=== PATIENT | male | born 1965 | race Caucasian/White ===

== ENCOUNTER 2016-07-23 22:38 | Inpatient (IN) | payer BC ==
[~2016-07-23] VITALS: Ht 167.6 cm; Wt 90.0 kg
[~2016-07-23 22:38] MED LIST: BACTDS PO; CEPH-443 PO; CIPR500T4 PO; CYCL-319 PO; DICY20TA59 PO; HYDR-3498 PO; HYDR-3720 PO; IBUP-1542 PO; ONDA4TAB35 PO
[2016-07-23 22:42] VITALS: Ht 167.6 cm; Wt 90.0 kg
[2016-07-23] MEDS ORDERED: SOD CHLORIDE 0.9% 1,000 ML IV STA (22:42)
[2016-07-23] MEDS ORDERED: ONDANSETRON 4 MG INJ IV STA (22:42)
[2016-07-23] MEDS ORDERED: METOCLOPRAMIDE 10 MG INJ IV STA (22:42)
[2016-07-23] MEDS: morphine 4 MG/ML VIAL IV STA ×2 (22:51→22:55)
[2016-07-23] MEDS ORDERED: HYDROmorphONE 1 MG/ML SYG IV STA (22:56)
[2016-07-23 23:09] LABS: ADD UMIC YES; URINE BILIRUBIN (Dip) NEGATIVE (NEGATIVE); URINE BLOOD (Dip) NEGATIVE (NEGATIVE); URINE COLOR LT. YELLOW (YELLOW); URINE GLUCOSE (Dip) NEGATIVE (NEGATIVE); URINE KETONES (Dip) NEGATIVE (NEGATIVE); URINE LEUKOCYTE ESTERASE (Dip) TRACE (NEGATIVE); URINE NITRITE (Dip) NEGATIVE (NEGATIVE); URINE TOTAL PROTEIN (Dip) NEGATIVE (NEGATIVE); URINE UROBILINOGEN (Dip) 0.2 E.U./dL (0.1-1.0)
[2016-07-23 23:09] LABS: BASOPHIL # 0.1 10^3/ul (0.0-0.1); BASOPHILS % 0.5 % (0.0-2.0); CONDITION 1; EOSINOPHILS # 0.3 10^3/ul (0.0-0.5); EOSINOPHILS % 2.9 % (0.0-7.0); HEMATOCRIT 34.2 % (42.0-52.0); HEMOGLOBIN 11.8 g/dl (14.0-18.0); LH ANALYZER COMMENTS 1; LYMPHOCYTES # 3.2 10^3/ul (0.8-2.9); LYMPHOCYTES % 27.4 % (15.0-51.0); MEAN CORPUSCULAR HEMOGLOBIN 35.4 pg (29.0-33.0); MEAN CORPUSCULAR HGB CONC 34.5 g/dl (32.0-37.0); MEAN CORPUSCULAR VOLUME 102.5 fl (82.0-101.0); MONOCYTE # 1.1 10^3/ul (0.3-0.9); MONOCYTES % 9.9 % (0.0-11.0); NEUTROPHIL # 6.9 10^3/ul (1.6-7.5); NEUTROPHILS % 59.3 % (39.0-77.0); PLATELET COUNT 297 10^3/UL (140-440); RED BLOOD COUNT 3.34 10^6/ul (4.70-6.10); UNCORRECTED WBC 11.6 10^3/ul (4.8-10.8); WHITE BLOOD COUNT 11.6 10^3/ul (4.8-10.8)
[2016-07-23 23:14] LABS: ALBUMIN 3.6 g/dl (3.3-4.9); CHLORIDE 103 mmol/L (97-110)
[2016-07-23 23:15] LABS: POTASSIUM 3.6 mmol/L (3.5-5.1); SODIUM 137 mmol/L (135-144)
[2016-07-23 23:17] LABS: ANION GAP 16 (8-16); ASPARTATE AMINO TRANSFERASE 24 IU/L (15-46); BILIRUBIN,INDIRECT 1.2 mg/dl (0-1.1); BILIRUBIN,TOTAL 1.2 mg/dl (0.2-1.3); CARBON DIOXIDE 22 mmol/L (21-31); CREATININE 0.97 mg/dl (0.61-1.24)
[2016-07-23 23:18] LABS: ALANINE AMINOTRANSFERASE 43 IU/L (13-69); ALKALINE PHOSPHATASE 90 IU/L (42-121); BLOOD UREA NITROGEN 17 mg/dl (7-20); CALCIUM 8.9 mg/dl (8.4-10.2); GLUCOSE 104 mg/dl (70-220)
[2016-07-23 23:31] LABS: TROPONIN-I < 0.012 ng/ml (0.00-0.12)
[2016-07-23 23:42] LABS: SQUAMOUS EPITHELIAL CELL,UR RARE; URINE RBCS 0-2 /HPF (0)
--- NOTE | 2016-07-24 00:58 | ERA ---
ER Documentation Chief Complaint Date/Time DATE: 07/24/16 TIME: 00:56 Chief Complaint BIB RA SYCNOPAL EPISODE AFTER VOMITING X1 FROM HOME. ON ORAL CHEMO HPI This is a 51-year-old male was brought in after vomiting 2-3 times. He had a near syncopal episode as he was vomiting so profusely. Patient has a history of stage IV hepatocellular carcinoma. No fevers no chills. Vomiting nonbilious. No blood in vomit. No other current complaints. ROS All systems reviewed and are negative except as per history of present illness. Medications Home Meds Active Scripts Cephalexin* (Keflex*) 500 Mg Capsule, 500 MG PO QID for 7 Days, CAP Prov:MARKO SARAVIA PA-C 05/04/16 Sulfamethoxazole-Trimethoprim* (Bactrim* DS) 800-160 Mg Tab, 1 TAB PO DAILY for 7 Days, TAB Prov:MARKO SARAVIA PA-C 05/04/16 Ciprofloxacin Hcl* (Ciprofloxacin Hcl*) 500 Mg Tablet, 500 MG PO BID for 7 Days , TAB Prov:JORGE NAIR PA-C 04/25/16 Cyclobenzaprine Hcl* (Cyclobenzaprine Hcl*) 10 Mg Tablet, 10 MG PO TID, #15 TAB Prov:PHILIP DUFF NP 11/21/15 Ibuprofen* (Motrin*) 600 Mg Tab, 600 MG PO Q6H Y for PAIN AND OR ELEVATED TEMP, #30 TAB Prov:PHILIP DUFF NP 11/21/15 Hydrocodone Bit-Acetaminophen* ([place]*) 5-325 Mg Tab, 1 TAB PO Q6 Y for PAIN, # 20 TAB Prov:PHILIP DUFF CLERICAL MANAGER 11/21/15 Hydrocodone Bit-Acetaminophen* ([place]*) 7.5-325 Tablet, 1 TAB PO Q4H Y for PAIN , #20 TAB Prov:CONNOR CUMMINS A. DO 08/19/15 Dicyclomine Hcl* (Bentyl*) 20 Mg Tablet, 20 MG PO QID, #30 TAB Prov:DIOGO CUMMINSSTOLOS A. DO 08/19/15 Ondansetron Hcl* (Zofran* ODT) 4 mg -ODT Tab.disper, 4 MG PO Q6 Y for NAUSEA AND /OR VOMITING, #10 TAB Prov:CONNOR CUMMINS DO 08/19/15 Allergies Allergies: Coded Allergies: ibuprofen (Verified Allergy, Mild, CHEMO PT, BLEEDING RISK, 07/23/16) PMhx/Soc History of Surgery: No Anesthesia Reaction: No Hx Neurological Disorder: No Hx Respiratory Disorders: No Hx Cardiac Disorders: No Hx Psychiatric Problems: No Hx Miscellaneous Medical Probl: Yes (liver ca, on chemo pills) Hx Alcohol Use: No Hx Substance Use: No Hx Tobacco Use: No Smoking Status: Never smoker Physical Exam Vitals Vital Signs Date Time Temp Pulse Resp B/P Pulse Ox O2 Delivery O2 Flow Rate FiO2 07/23/16 22:42 37.0 89 22 129/81 100 Physical Exam Const: [] Head: Atraumatic Eyes: Normal Conjunctiva ENT: Normal External Ears, Nose and Mouth. Neck: Full range of motion..~ No meningismus. Resp: Clear to auscultation bilaterally Cardio: Regular rate and rhythm, no murmurs Abd: Soft, non tender, non distended. Normal bowel sounds Skin: No petechiae or rashes Back: No midline or flank tenderness Ext: No cyanosis, or edema Neur: Awake and alert Psych: Normal Mood and Affect Result Diagram: 07/23/16225307/23/162253 Results 24 hrs Laboratory Tests Test 07/23/16 20:49 07/23/16 22:48 07/23/16 22:54 Urine Bilirubin NEGATIVE Urine Clarity CLEAR Urine Color LT. YELLOW Urine Glucose NEGATIVE% Urine Hemoglobin NEGATIVE Urine Ketones NEGATIVE Urine Leukocyte Esterase TRACE Urine Microscopic RBC 0-2/HPF Urine Microscopic WBC 0-2/HPF Urine Nitrite NEGATIVE Urine Specific [place] 1.020 Urine Squamous Epithelial Cells RARE Urine Total Protein NEGATIVE Urine Urobilinogen 0.2 E.U./dL Urine pH 6.0 Lactic Acid Level 1.1mmol/L Alanine Aminotransferase (ALT/SGPT) 43IU/L Albumin 3.6g/dl Albumin/Globulin Ratio 1.50 Alkaline Phosphatase 90IU/L Anion Gap 16 Aspartate Amino Transf (AST/SGOT) 24IU/L Basophils # 0.110^3/ul Basophils % 0.5% Blood Morphology Comment Blood Urea Nitrogen 17mg/dl Calcium Level 8.9mg/dl Carbon Dioxide Level 22mmol/L Chloride Level 103mmol/L Creatinine 0.97mg/dl Direct Bilirubin 0.00mg/dl Eosinophils # 0.310^3/ul Eosinophils % 2.9% Globulin 2.40g/dl Glucose Level 104mg/dl Hematocrit 34.2% Hemoglobin 11.8g/dl Indirect Bilirubin 1.2mg/dl Lipase 793U/L Lymphocytes # 3.210^3/ul Lymphocytes % 27.4% Mean Corpuscular Hemoglobin 35.4pg Mean Corpuscular Hemoglobin Concent 34.5g/dl Mean Corpuscular Volume 102.5fl Mean Platelet Volume 7.0fl Monocytes # 1.110^3/ul Monocytes % 9.9% Neutrophils # 6.910^3/ul Neutrophils % 59.3% Nucleated Red Blood Cells # 0.010^3/ul Nucleated Red Blood Cells % 0.0/100WBC Platelet Count 28596^3/UL Potassium Level 3.6mmol/L Red Blood Count 3.3410^6/ul Red Cell Distribution Width 21.0% Sodium Level 137mmol/L Total Bilirubin 1.2mg/dl Total Protein 6.0g/dl Troponin I < 0.012ng/ml White Blood Count 11.610^3/ul Current Medications Medications (Trade) Dose Ordered Sig/Beny Route PRN Reason Start Time Stop Time Status Last Admin Dose Admin Sodium Chloride (NS) 1,000 ml @ 1,000 mls/hr Q1H STAT IV 07/23/16 22:42 07/23/16 23:41 DC 07/23/16 22:51 Morphine Sulfate (morphine) 4 mg ONCE STAT IV 07/23/16 22:42 07/23/16 22:45 DC Ondansetron HCl (Zofran Inj) 4 mg ONCE STAT IV 07/23/16 22:42 07/23/16 22:45 DC 07/23/16 22:51 Metoclopramide HCl (Reglan) 10 mg ONCE STAT IV 07/23/16 22:42 07/23/16 22:45 DC 07/23/16 22:51 Hydromorphone HCl (Dilaudid) 1 mg ONCE STAT IV 07/23/16 22:56 07/23/16 22:57 DC 07/23/16 22:59 Procedures/MDM EKG: Rate/Rhythm: Normal Sinus Rhythm QRS, ST, T-waves: No changes consistent w/ acute ischemia Impression: No evidence of ischemia or arrhythmia Chest X-ray 1V Interpreted by me: Soft Tissue: No acute abnormalities Bones: No acute abnormalities Mediastinum/Cardiac Silhouette/Lungs: No acute abnormalities Medical decision making: This is a 51 gentleman has acute pancreatitis likely secondary to oral chemotherapy. At this point is clinically stable. His vomiting had subsided. Patient will be admitted to Dr. Bhat who is on-call for Dr. Kam Departure Diagnosis: Primary Impression: Pancreatitis Qualified Code: K85.30 - Drug-induced acute pancreatitis, unspecified complication status Condition: Serious MIKE GASTON Jul 24, 2016 00:58
[2016-07-24 01:00] VITALS: TEMP 98.7
--- NOTE | 2016-07-24 01:05 | RADRPT ---
PROCEDURE: CHEST - 1 VIEW CLINICAL INDICATION: 51-year-old male with chest/abdominal pain. TECHNIQUE: A single frontal AP view of the chest was performed emboli. The images were reviewed o n a PACS workstation. COMPARISON: Chest x-ray March 29, 2015 FINDINGS: The cardiomediastinal silhouette has a normal appearance. There is mild elevation right hemidiaphra gm. There is no evidence for an infiltrate. There is no evidence for congestive heart failure. The re is no evidence for pneumothorax. The osseous structures are intact. IMPRESSION: No evidence for active cardiopulmonary disease. .Omar Camacho MD, MD Date Time Electronically viewed and signed by .Omar Camacho MD, MD on 07/24/2016 01:05 .Jayne/
[2016-07-24 01:30] VITALS: BP 135/79; PULSE 75; RESP 18
[2016-07-24] MEDS ORDERED: ONDANSETRON 4 MG INJ IV PRN (03:00)
[2016-07-24 06:18] LABS: POTASSIUM 3.1 mmol/L (3.5-5.1)
[2016-07-24 06:21] LABS: CREATININE 0.88 mg/dl (0.61-1.24)
[2016-07-24 06:22] LABS: CALCIUM 8.4 mg/dl (8.4-10.2)
[2016-07-24 06:31] LABS: BASOPHILS % 0.6 % (0.0-2.0); EOSINOPHILS # 0.3 10^3/ul (0.0-0.5); EOSINOPHILS % 3.5 % (0.0-7.0); HEMATOCRIT 33.4 % (42.0-52.0); HEMOGLOBIN 11.7 g/dl (14.0-18.0); LYMPHOCYTES # 2.4 10^3/ul (0.8-2.9); LYMPHOCYTES % 27.4 % (15.0-51.0); MEAN CORPUSCULAR HEMOGLOBIN 35.6 pg (29.0-33.0); MEAN CORPUSCULAR HGB CONC 34.9 g/dl (32.0-37.0); MEAN CORPUSCULAR VOLUME 102.1 fl (82.0-101.0); MEAN PLATELET VOLUME 7.2 fl (7.4-10.4); MONOCYTE # 0.7 10^3/ul (0.3-0.9); MONOCYTES % 8.4 % (0.0-11.0); NEUTROPHIL # 5.2 10^3/ul (1.6-7.5); NEUTROPHILS % 60.1 % (39.0-77.0); PLATELET COUNT 269 10^3/UL (140-440); RED BLOOD COUNT 3.28 10^6/ul (4.70-6.10); RED CELL DISTRIBUTION WIDTH 20.5 % (11.5-14.5); UNCORRECTED WBC 8.7 10^3/ul (4.8-10.8); WHITE BLOOD COUNT 8.7 10^3/ul (4.8-10.8)
[2016-07-24 06:38] LABS: CONDITION 1; LH ANALYZER COMMENTS 1
[2016-07-24 07:37] VITALS: BP 133/78; RESP 20
[2016-07-24] MEDS ORDERED: CAPE500T11 PO (11:38)
[2016-07-24] MEDS ORDERED: POTASSIUM CHLORIDE 20 MEQ in DEXTROSE 5% 250 ML IVPB ONE (12:00)
[2016-07-24] MEDS: D5-NS + KCL 20 MEQ 1,000 ML IV SCH (12:52)
--- NOTE | 2016-07-24 13:20 | HP ---
DATE OF ADMISSION: 07/24/2016 CHIEF COMPLAINT: Near syncopal episode after vomiting. HISTORY OF PRESENT ILLNESS: The patient is a 51-year-old [place] gentleman with stage IV, hepatoce llular carcinoma. The patient takes Xeloda at home. The patient developed nonbloody vomiting a cou ple of times and a near syncopal episode while he was profusely vomiting. The patient denies any fe chalino, chills, denies any chest pain, denies any shortness of breath, denies any diarrhea. The patien t stated that he was diagnosed with cancer more than a year ago. The patient follows with Dr. Montenegro, oncologist at [facility]. The patient underwent a 12-lead EKG that showed normal s inus rhythm. The patient was diagnosed with acute pancreatitis. The patient's lipase was elevated to 793. The patient also noted mild leukocytosis. The patient was given Zofran for nausea and morp kaushal for pain, was given 1 liter of IV fluids. The patient's vomiting has subsided and the patient is admitted for further evaluation and management to medical/surgical floor. PAST MEDICAL HISTORY: Per HPI. PAST SURGICAL HISTORY: The patient is status post appendectomy in 1976. FAMILY HISTORY: Noncontributory. SOCIAL HISTORY: The patient denies any tobacco use. The patient uses alcohol occasionally. Luis loaiza denies any illicit drug use. ALLERGIES: PATIENT IS ALLERGIC TO IBUPROFEN. HOME MEDICATIONS: 1. Xeloda 500 mg p.o. b.i.d. 2. Keflex. 3. Cipro. 4. Cyclobenzaprine. 5. Bentyl 6. [place]. 7. Zofran. REVIEW OF SYSTEMS: A 12-point review of systems is negative unless what mentioned in the HPI. PHYSICAL ASSESSMENT GENERAL: Well-developed, well-nourished male in no acute distress. VITAL SIGNS: Temperature is 98.4, pulse is 75, blood pressure is 133/78, respiratory rate 20, oxyge n saturation is 100% on room air. HEENT: Head is atraumatic, normocephalic. Pupils equal, round, reactive to light and accommodation . Oral mucosa is pink and moist. NECK: Supple, no cervical lymphadenopathy, no thyromegaly. CHEST: Lungs clear bilaterally. There is no rhonchi, wheezes, or rales noted. CARDIOVASCULAR: Normal S1, S2. No murmurs, gallops, clicks, rubs noted. ABDOMEN: Round, soft, nondistended, nontender. Bowel sounds present in all 4 quadrants. There is no rebound tenderness. EXTREMITIES: There is no edema, clubbing, cyanosis. Pulses equal bilaterally 2+. SKIN: There is no rash, petechiae noted. NEUROLOGIC: The patient is awake, alert and oriented x4. No focal deficits noted. Motor strength 5/5 in all extremities. LABORATORY DATA: On admission, CBC: White blood cells 11.6, hemoglobin 11.8, hematocrit 34.2, plat elets 297. Chemistry: Sodium is 137, potassium 3.6, chloride 103, carbon dioxide 22, anion gap 16, BUN is 17, creatinine 0.97, glucose 104. AST is 24, ALT is 43, alkaline phosphatase 90, troponin l ess than 0.012. Lipase is 793. IMAGING: Chest x-ray with no evidence for active cardiopulmonary disease. ASSESSMENT AND PLAN: 1. Acute pancreatitis, most likely secondary to chemotherapy. Keep patient n.p.o., start IV fluids . Monitor lipase. Dr. Ferreira will be followed patient in gastroenterology consultation. 2. Near syncope, will obtain cardiac enzymes q.6h. x3 to rule out for acute coronary syndrome, stag e IV hepatocellular carcinoma. We will obtain Oncology consult, Dr. Malhotra. 3. Anemia, most likely secondary to chemotherapy. Will continue sequential compression device for deep venous thrombosis prophylaxis and Protonix for peptic ulcer disease prophylaxis. Monitor lipase and amylase closely. Zofran p.r.n. for nausea. Further recommendations based on clinical course. Plan of care discussed with Dr. Cabrera. Dictated By: ANDREI PIEDRA D[facility]IST [facility] for CORY CABRERA MD SR/NTS Conf#: [id number] DID#: [id number]
--- NOTE | 2016-07-24 14:30 | RADRPT ---
Echocardiogram Report Patient Name: SVETLANA BRUNNER Gender: Male Date: 1965 Study Date: 24-Jul-2016 Smash Fixer: [facility] Location: 623 Ref. Physician: ANDREI PIEDRA Quality: Good Procedures: Transthoracic echocardiogram with complete 2D, M-Mode, and doppler examination. Indications: Syncope. 2D/M Mode Doppler Measurement Value Normal Ranges Measurement Value Normal Ranges LVIDd 2D 4.1 3.5 - 5.6 cm AV Peak Abiel 1.2 m/sec LVIDs 2D 2.0 2.1 - 4.1 cm AV Peak PG 6.0 mmHg LVPWd 2D 1.0 0.6 - 1.1 cm LVOT Peak Abiel 1.1 m/sec IVSd 2D 0.9 0.6 - 1.1 cm LVOT Peak PG 5.1 mmHg AoR Diam 2D 2.7 2.0 - 3.7 cm MV E Peak Abiel 0.8 m/sec EDV 2D 76.1 cm3 MV A Peak Abiel 0.5 m/sec ESV 2D 8.5 cm3 MV E/A 1.6 LA Dimen 2D 3.5 2.3 - 4.0 cm MV Decel Time 182 msec MV Decel [place] 5 MV E/A 1.6 Findings Left Ventricle: Normal left ventricular systolic function. Normal left ventricular cavity size. Normal left ventricular wall thickness. Ejection fraction is visually estimated at 65 %. Right Ventricle: Normal right ventricular size. Normal right ventricular systolic function. Left Atrium: The left atrium is normal in size. Right Atrium: The right atrium is normal in size. Mitral Valve: Mitral valve leaflets appear mildly thickened. Mild mitral valve regurgitation. Aortic Valve: Normal appearance of the aortic valve. No significant aortic stenosis or insufficiency. Tricuspid Valve: Normal appearance and function of the tricuspid valve with trace physiologic regurgitation. Pulmonic Valve: Normal pulmonic valve appearance. Pericardium: Normal pericardium with no significant pericardial effusion. Aorta: Normal aortic root. IVC: Normal size and normal respiratory collapse consistent with normal right atrial pressure. Conclusions 1.Normal left ventricular systolic function. Normal left ventricular cavity size. Normal left ventricular wall thickness. Ejection fraction is visually estimated at 65 %. 2.Normal right ventricular size. Normal right ventricular systolic function. 3.The left atrium is normal in size. 4.The right atrium is normal in size. 5.Mild mitral valve regurgitation. 6.No significant valvular stenosis or regurgitation seen of remaining visualized valves. 7.Normal pericardium with no significant pericardial effusion. 8.Echolucent regions incidentally seen in liver. Further imaging recommended if clinically warranted. Electronically Signed By: Aaron Waller 24-Jul-2016 14:29:34 -0800 Patient Name: SVETLANA BRUNNER Study Date: 24-[id number]
--- NOTE | 2016-07-24 14:33 | CONS ---
DATE OF ADMISSION: 07/24/2016 DATE OF CONSULTATION: 07/24/2016 TYPE OF CONSULTATION: Gastroenterology. Dear Dr. Cabrera: Thank you for asking me to see Mr. Sanchez in GI consultation. HISTORY OF PRESENT ILLNESS: The patient, as you know, is a 51-year-old [place] gentleman has been experiencing vomiting and abdominal pain for the past 24 hours. Vomitus does not contain any blood. He has no diarrhea. No bleeding from the rectum. No history of abdominal pain of significance. He has been known to have hepatocellular carcinoma since 2014. MEDICATIONS: 1. He takes Xeloda 500 mg p.o. b.i.d. He also takes other medications which include: 2. Keflex. 3. Cipro. 4. Cyclobenzaprine. 5. Bentyl. 6. [place]. 7. Zofran. SOCIAL HISTORY: The patient does not smoke or drink. 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 PAST MEDICAL HISTORY: Appendectomy in 1976. REVIEW OF SYSTEM: Essentially as mentioned above, hepatocellular carcinoma. PHYSICAL EXAMINATION GENERAL: The patient is a 51-year-old [place] gentleman who at this time is alert, well built. VITAL SIGNS: Afebrile. CARDIOVASCULAR: Normal heart sounds. RESPIRATORY: Normal breath sounds. ABDOMEN: Showed unremarkable findings. LABORATORY WORKUP: Shows hemoglobin 11.7, WBC 8700. BUN 14, creatinine 0.8. Bilirubin 1.2, AST 24 , ALT 43, alkaline phosphatase 90. Troponin 0.012. He has a CA 19-9 of 1.4, CA 125 of , CEA o f 1.8 in 2014. Serum lipase is elevated to 793. CLINICAL IMPRESSION: A patient presenting with history of vomiting. He has elevated serum amylase. The patient seems to have evidence of pancreatitis quite likely due to gallstone pancreatitis. No history of alcoholism. I doubt if he has got any malignant process in the hepatobiliary pancreatic system, although patient is already known to have hepatoma. PLAN: Recommend MRCP. I will be happy to follow this patient along with you. Once again, doctor, thank you for this consultation. Dictated By: ANN SCHNEIDER/MARIELLA Conf#: [id number] DID#: [id number] CC: ANN JADE MD; CORY CABRERA MD;*End*
[2016-07-24] MEDS: PANTOPRAZOLE 40 MG INJ IV SCH (14:52)
[2016-07-24] MEDS: HYDROmorphONE 1 MG/ML SYG IV PRN ×2 (16:21→20:21)
[2016-07-24 17:58] LABS: CREATINE KINASE 76 IU/L (23-200)
[2016-07-24 18:09] LABS: CK-MB 0.77 ng/ml (0.0-2.4)
[2016-07-24 18:27] LABS: TROPONIN-I < 0.012 ng/ml (0.00-0.12)
--- NOTE | 2016-07-24 19:15 | CONS ---
Date/Time of Note Date/Time of Note DATE: 07/24/16 TIME: 19:14 Consultation Date/Type/Reason Admit Date/Time Jul 24, 2016 at 00:53 Social History Smoking Status: Never smoker Exam/Review of Systems Vital Signs Vitals Vital Signs Date Time Temp Pulse Resp B/P Pulse Ox O2 Delivery O2 Flow Rate FiO2 07/24/16 07:37 98.4 72 20 133/78 100 07/24/16 01:30 Room Air Results Result Diagram: 07/24/16 0510 07/24/16 0510 Results 24 hrs Laboratory Tests Test 07/23/16 20:49 07/23/16 22:48 07/23/16 22:54 07/24/16 05:10 Urine Bilirubin NEGATIVE Urine Clarity CLEAR Urine Color LT. YELLOW Urine Glucose NEGATIVE Urine Hemoglobin NEGATIVE Urine Ketones NEGATIVE Urine Leukocyte Esterase TRACE H Urine Microscopic RBC 0-2 Urine Microscopic WBC 0-2 Urine Nitrite NEGATIVE Urine Specific [place] 1.020 Urine Squamous Epithelial Cells RARE Urine Total Protein NEGATIVE Urine Urobilinogen 0.2 E.U./dL Urine pH 6.0 Lactic Acid Level 1.1 Alanine Aminotransferase (ALT/SGPT) 43 Albumin 3.6 Albumin/Globulin Ratio 1.50 Alkaline Phosphatase 90 Anion Gap 16 15 Aspartate Amino Transf (AST/SGOT) 24 Basophils # 0.1 0.0 Basophils % 0.5 0.6 Blood Morphology Comment Blood Urea Nitrogen 17 14 Calcium Level 8.9 8.4 Carbon Dioxide Level 22 19 L Chloride Level 103 105 Creatinine 0.97 0.88 Direct Bilirubin 0.00 Eosinophils # 0.3 0.3 Eosinophils % 2.9 3.5 Globulin 2.40 Glucose Level 104 100 Hematocrit 34.2 L 33.4 L Hemoglobin 11.8 L 11.7 L Indirect Bilirubin 1.2 H Lipase 793 H Lymphocytes # 3.2 H 2.4 Lymphocytes % 27.4 27.4 Mean Corpuscular Hemoglobin 35.4 #H 35.6 H Mean Corpuscular Hemoglobin Concent 34.5 34.9 Mean Corpuscular Volume 102.5 #H 102.1 H Mean Platelet Volume 7.0 L 7.2 L Monocytes # 1.1 H 0.7 Monocytes % 9.9 8.4 Neutrophils # 6.9 5.2 Neutrophils % 59.3 60.1 Nucleated Red Blood Cells # 0.0 0.0 Nucleated Red Blood Cells % 0.0 0.0 Platelet Count 297 # 269 Potassium Level 3.6 3.1 L Red Blood Count 3.34 #L 3.28 L Red Cell Distribution Width 21.0 #H 20.5 H Sodium Level 137 136 Total Bilirubin 1.2 Total Protein 6.0 L Troponin I < 0.012 White Blood Count 11.6 H 8.7 # Test 07/24/16 17:37 Creatine Kinase 76 Creatine Kinase Index 1.0 Creatinine Kinase MB (Mass) 0.77 Troponin I < 0.012 Medications Medications Current Medications Hydromorphone HCl 1 mg 1 mg Q4H PRN IV PAIN Last administered on 07/24/16 16: 21; Admin Dose 1 MG; Start 07/24/16 at 03:00 Potassium Chloride/Dextrose/ Sod Cl (D5-NS + KCl 20 Meq) 1,000 ml @ 80 mls/hr [id number] IV Last administered on 07/24/16 12:52; Admin Dose 80 MLS/HR; Start at 13:00 Ondansetron HCl (Zofran Inj) 4 mg Q4H PRN IV NAUSEA AND/OR VOMITING; Start at 13:00 Pantoprazole (Protonix Iv) 40 mg DAILY@06 IV Last administered on 07/24/16 14: 52; Admin Dose 40 MG; Start 07/24/16 at 14:00 ETHEL JAMIL MD Jul 24, 2016 19:14
--- NOTE | 2016-07-24 19:15 | CONS ---
Date/Time of Note Date/Time of Note DATE: 07/24/16 TIME: 19:15 Consultation Date/Type/Reason Admit Date/Time Jul 24, 2016 at 00:53 Initial Consult Date Exam/Review of Systems Vital Signs Vitals Vital Signs Date Time Temp Pulse Resp B/P Pulse Ox O2 Delivery O2 Flow Rate FiO2 07/24/16 07:37 98.4 72 20 133/78 100 07/24/16 01:30 Room Air Results Result Diagram: 07/24/16 0510 07/24/16 0510 Results 24 hrs Laboratory Tests Test 07/23/16 20:49 07/23/16 22:48 07/23/16 22:54 07/24/16 05:10 Urine Bilirubin NEGATIVE Urine Clarity CLEAR Urine Color LT. YELLOW Urine Glucose NEGATIVE Urine Hemoglobin NEGATIVE Urine Ketones NEGATIVE Urine Leukocyte Esterase TRACE H Urine Microscopic RBC 0-2 Urine Microscopic WBC 0-2 Urine Nitrite NEGATIVE Urine Specific [place] 1.020 Urine Squamous Epithelial Cells RARE Urine Total Protein NEGATIVE Urine Urobilinogen 0.2 E.U./dL Urine pH 6.0 Lactic Acid Level 1.1 Alanine Aminotransferase (ALT/SGPT) 43 Albumin 3.6 Albumin/Globulin Ratio 1.50 Alkaline Phosphatase 90 Anion Gap 16 15 Aspartate Amino Transf (AST/SGOT) 24 Basophils # 0.1 0.0 Basophils % 0.5 0.6 Blood Morphology Comment Blood Urea Nitrogen 17 14 Calcium Level 8.9 8.4 Carbon Dioxide Level 22 19 L Chloride Level 103 105 Creatinine 0.97 0.88 Direct Bilirubin 0.00 Eosinophils # 0.3 0.3 Eosinophils % 2.9 3.5 Globulin 2.40 Glucose Level 104 100 Hematocrit 34.2 L 33.4 L Hemoglobin 11.8 L 11.7 L Indirect Bilirubin 1.2 H Lipase 793 H Lymphocytes # 3.2 H 2.4 Lymphocytes % 27.4 27.4 Mean Corpuscular Hemoglobin 35.4 #H 35.6 H Mean Corpuscular Hemoglobin Concent 34.5 34.9 Mean Corpuscular Volume 102.5 #H 102.1 H Mean Platelet Volume 7.0 L 7.2 L Monocytes # 1.1 H 0.7 Monocytes % 9.9 8.4 Neutrophils # 6.9 5.2 Neutrophils % 59.3 60.1 Nucleated Red Blood Cells # 0.0 0.0 Nucleated Red Blood Cells % 0.0 0.0 Platelet Count 297 # 269 Potassium Level 3.6 3.1 L Red Blood Count 3.34 #L 3.28 L Red Cell Distribution Width 21.0 #H 20.5 H Sodium Level 137 136 Total Bilirubin 1.2 Total Protein 6.0 L Troponin I < 0.012 White Blood Count 11.6 H 8.7 # Test 07/24/16 17:37 Creatine Kinase 76 Creatine Kinase Index 1.0 Creatinine Kinase MB (Mass) 0.77 Troponin I < 0.012 Medications Medications Current Medications Hydromorphone HCl 1 mg 1 mg Q4H PRN IV PAIN Last administered on 07/24/16 16: 21; Admin Dose 1 MG; Start 07/24/16 at 03:00 Potassium Chloride/Dextrose/ Sod Cl (D5-NS + KCl 20 Meq) 1,000 ml @ 80 mls/hr [id number] IV Last administered on 07/24/16 12:52; Admin Dose 80 MLS/HR; Start at 13:00 Ondansetron HCl (Zofran Inj) 4 mg Q4H PRN IV NAUSEA AND/OR VOMITING; Start at 13:00 Pantoprazole (Protonix Iv) 40 mg DAILY@06 IV Last administered on 07/24/16 14: 52; Admin Dose 40 MG; Start 07/24/16 at 14:00 ETHEL JAMIL MD Jul 24, 2016 19:15
[2016-07-24 20:00] VITALS: BP 132/79; RESP 20
[2016-07-24] MEDS: ONDANSETRON 4 MG INJ IV PRN (21:49)
[2016-07-25] MEDS: D5-NS + KCL 20 MEQ 1,000 ML IV SCH ×3 (01:14→14:00)
[2016-07-25 01:29] LABS: CREATINE KINASE 70 IU/L (23-200)
[2016-07-25 01:44] LABS: CK-MB 0.62 ng/ml (0.0-2.4); TROPONIN-I < 0.012 ng/ml (0.00-0.12)
[2016-07-25] MEDS: PANTOPRAZOLE 40 MG INJ IV SCH (05:32)
[2016-07-25 06:13] LABS: BASOPHILS % 0.5 % (0.0-2.0); EOSINOPHILS # 0.3 10^3/ul (0.0-0.5); EOSINOPHILS % 4.4 % (0.0-7.0); HEMATOCRIT 33.9 % (42.0-52.0); HEMOGLOBIN 11.9 g/dl (14.0-18.0); LYMPHOCYTES # 2.4 10^3/ul (0.8-2.9); LYMPHOCYTES % 31.9 % (15.0-51.0); MEAN CORPUSCULAR HEMOGLOBIN 35.6 pg (29.0-33.0); MEAN CORPUSCULAR VOLUME 101.5 fl (82.0-101.0); MEAN PLATELET VOLUME 7.2 fl (7.4-10.4); MONOCYTE # 0.7 10^3/ul (0.3-0.9); MONOCYTES % 9.5 % (0.0-11.0); NEUTROPHIL # 4.1 10^3/ul (1.6-7.5); NEUTROPHILS % 53.7 % (39.0-77.0); PLATELET COUNT 251 10^3/UL (140-440); RED BLOOD COUNT 3.34 10^6/ul (4.70-6.10); RED CELL DISTRIBUTION WIDTH 20.3 % (11.5-14.5); UNCORRECTED WBC 7.6 10^3/ul (4.8-10.8); WHITE BLOOD COUNT 7.6 10^3/ul (4.8-10.8)
[2016-07-25 06:25] LABS: ALBUMIN 3.2 g/dl (3.3-4.9)
[2016-07-25 06:26] LABS: POTASSIUM 3.7 mmol/L (3.5-5.1)
[2016-07-25 06:28] LABS: ALBUMIN/GLOBULIN RATIO 1.23; BILIRUBIN,INDIRECT 1.5 mg/dl (0-1.1); BILIRUBIN,TOTAL 1.5 mg/dl (0.2-1.3); CALCIUM 8.6 mg/dl (8.4-10.2); TOTAL PROTEIN 5.8 g/dl (6.1-8.1)
[2016-07-25 06:29] LABS: CONDITION 1; LH ANALYZER COMMENTS 1
[2016-07-25 07:53] VITALS: BP 123/65; RESP 22
[2016-07-25] MEDS: HYDROmorphONE 1 MG/ML SYG IV PRN (09:16)
[2016-07-25] MEDS: ONDANSETRON 4 MG INJ IV PRN (09:24)
--- NOTE | 2016-07-25 11:33 | CONS ---
Date/Time of Note Date/Time of Note DATE: 07/25/16 TIME: 11:32 Consultation Date/Type/Reason Admit Date/Time Jul 24, 2016 at 00:53 Exam/Review of Systems Vital Signs Vitals Vital Signs Date Time Temp Pulse Resp B/P Pulse Ox O2 Delivery O2 Flow Rate FiO2 07/25/16 07:53 98.0 62 22 123/65 99 07/24/16 01:30 Room Air Intake and Output 07/24/16 07/24/16 07/25/16 15:00 23:00 07:00 Intake Total 480 ml 1490 ml Balance 480 ml 1490 ml Results Result Diagram: 07/25/16 0540 07/25/16 0540 Results 24 hrs Laboratory Tests Test 07/24/16 17:37 07/25/16 00:32 07/25/16 05:40 Creatine Kinase 76 70 Creatine Kinase Index 1.0 0.9 Creatinine Kinase MB (Mass) 0.77 0.62 Troponin I < 0.012 < 0.012 Alanine Aminotransferase (ALT/SGPT) 43 Albumin 3.2 L Albumin/Globulin Ratio 1.23 Alkaline Phosphatase 82 Alpha Fetoprotein 3.85 Amylase Level 135 H Anion Gap 14 Aspartate Amino Transf (AST/SGOT) 36 Basophils # 0.0 Basophils % 0.5 Blood Morphology Comment Blood Urea Nitrogen 9 Calcium Level 8.6 Carbon Dioxide Level 24 Chloride Level 104 Creatinine 1.00 Direct Bilirubin 0.00 Eosinophils # 0.3 Eosinophils % 4.4 Globulin 2.60 Glucose Level 105 Hematocrit 33.9 L Hemoglobin 11.9 L Indirect Bilirubin 1.5 H Lipase 474 H Lymphocytes # 2.4 Lymphocytes % 31.9 Magnesium Level 1.5 L Mean Corpuscular Hemoglobin 35.6 H Mean Corpuscular Hemoglobin Concent 35.0 Mean Corpuscular Volume 101.5 H Mean Platelet Volume 7.2 L Monocytes # 0.7 Monocytes % 9.5 Neutrophils # 4.1 Neutrophils % 53.7 Nucleated Red Blood Cells # 0.0 Nucleated Red Blood Cells % 0.0 Platelet Count 251 Potassium Level 3.7 Red Blood Count 3.34 L Red Cell Distribution Width 20.3 H Sodium Level 138 Total Bilirubin 1.5 H Total Protein 5.8 L White Blood Count 7.6 Medications Medications Current Medications Hydromorphone HCl 1 mg 1 mg Q4H PRN IV PAIN Last administered on 07/25/16t 09: 16; Admin Dose 1 MG; Start 07/24/16 at 03:00 Potassium Chloride/Dextrose/ Sod Cl (D5-NS + KCl 20 Meq) 1,000 ml @ 80 mls/hr [id number] IV Last administered on 07/25/16 03:50; Admin Dose 80 MLS/HR; Start at 13:00 Ondansetron HCl (Zofran Inj) 4 mg Q4H PRN IV NAUSEA AND/OR VOMITING Last administered on 07/25/16 09:24; Admin Dose 4 MG; Start 07/24/16 at 13:00 Pantoprazole (Protonix Iv) 40 mg DAILY@06 IV Last administered on 07/25/16 05: 32; Admin Dose 40 MG; Start 07/24/16 at 14:00 ETHEL JAMIL MD Jul 25, 2016 11:32
--- NOTE | 2016-07-25 13:43 | CONS ---
DATE OF ADMISSION: 07/24/2016 DATE OF CONSULTATION: 07/25/2016 CHIEF COMPLAINT: Left abdominal pain. HISTORY OF PRESENT ILLNESS: The patient was admitted to the hospital with abdominal pain with high serum lipase. PHYSICAL EXAMINATION: GENERAL: The patient at this time is alert, well built. VITAL SIGNS: He is afebrile. The blood pressure is 123/65, temperature 98, pulse is 62. CARDIOVASCULAR: Normal heart sounds. RESPIRATORY: Normal breath sounds. ABDOMEN: Shows soft abdomen with no palpable masses, no tenderness, no distention. LABORATORY WORKUP: WBC 7600, hemoglobin 11.9. Potassium 3.7. Lipase is 474, amylase is 135, MRA showed evidence of a normal bile duct, gallstones noted. CLINICAL IMPRESSION: The patient seems to be having resolving pancreatitis. The reason for pancreatitis is a possibility that he may have passed a gallstone. The patient has hepatoma. PLAN: Recommend surgical consultation for possible cholecystectomy. Dictated By: ANN SCHNEIDER/MARIELLA Conf#: [id number] DID#: [id number]
--- NOTE | 2016-07-25 16:26 | PN ---
Date/Time of Note Date/Time of Note DATE: 07/25/16 TIME: 16:22 Assessment/Plan VTE Prophylaxis VTE Prophylaxis Intervention: SCD's Lines/Catheters IV C[facility]ter Type (from [facility]): Peripheral IV Urinary Cath still in place: No Assessment/Plan Chief Complaint/Hosp Course ASSESSMENT AND PLAN: 1. Acute pancreatitis, most likely secondary to chemotherapy. Keep patient n.p.o., continue IV fluids. Monitor lipase. Dr. Ferreira is followed patient in gastroenterology consultation. Pending MRCP. Will obtain surgical consult Dr Vicente, per gastroenterology recommendation for possible cholecystectomy. 2. Near syncope, will obtain cardiac enzymes q.6h. x3 to rule out for acute coronary syndrome, 3. Stage IV hepatocellular carcinoma. Dr. Salamanca is following in oncology consultation, discussed and patient was Dr. Salamanca today in the morning. 4. Anemia, most likely secondary to chemotherapy. Continue to monitor H&H. Continue sequential compression device for deep venous thrombosis prophylaxis and Protonix for peptic ulcer disease prophylaxis. Further recommendations based on clinical course. Plan of care discussed with Dr. Banks. Problems: Subjective 24 Hr Interval Summary Free Text/Dictation No nausea vomiting per IMER Choudhary, patient is afebrile. Exam/Review of Systems Vital Signs Vitals Vital Signs Date Time Temp Pulse Resp B/P Pulse Ox O2 Delivery O2 Flow Rate FiO2 07/25/16 07:53 98.0 62 22 123/65 99 07/24/16 01:30 Room Air Intake and Output 07/24/16 07/24/16 07/25/16 15:00 23:00 07:00 Intake Total 480 ml 1490 ml Balance 480 ml 1490 ml Exam GENERAL: Well-developed, well-nourished male in no acute distress. HEENT: Head is atraumatic, normocephalic. NECK: Supple, no cervical lymphadenopathy, no thyromegaly. CHEST: Lungs clear bilaterally. There is no rhonchi, wheezes, or rales noted. CARDIOVASCULAR: Normal S1, S2. No murmurs, gallops, clicks, rubs noted. ABDOMEN: Round, soft, nondistended, nontender. Bowel sounds present in all 4 quadrants. EXTREMITIES: There is no edema, clubbing, cyanosis. Pulses equal bilaterally 2 +. SKIN: There is no rash, petechiae noted. NEUROLOGIC: The patient is awake, alert and oriented x4 Results Result Diagram: 07/25/16 0540 07/25/16 0540 Results 24 hrs Laboratory Tests Test 07/24/16 17:37 07/25/16 00:32 07/25/16 05:40 Creatine Kinase 76 70 Creatine Kinase Index 1.0 0.9 Creatinine Kinase MB (Mass) 0.77 0.62 Troponin I < 0.012 < 0.012 Alanine Aminotransferase (ALT/SGPT) 43 Albumin 3.2 L Albumin/Globulin Ratio 1.23 Alkaline Phosphatase 82 Alpha Fetoprotein 3.85 Amylase Level 135 H Anion Gap 14 Aspartate Amino Transf (AST/SGOT) 36 Basophils # 0.0 Basophils % 0.5 Blood Morphology Comment Blood Urea Nitrogen 9 Calcium Level 8.6 Carbon Dioxide Level 24 Chloride Level 104 Creatinine 1.00 Direct Bilirubin 0.00 Eosinophils # 0.3 Eosinophils % 4.4 Globulin 2.60 Glucose Level 105 Hematocrit 33.9 L Hemoglobin 11.9 L Indirect Bilirubin 1.5 H Lipase 474 H Lymphocytes # 2.4 Lymphocytes % 31.9 Magnesium Level 1.5 L Mean Corpuscular Hemoglobin 35.6 H Mean Corpuscular Hemoglobin Concent 35.0 Mean Corpuscular Volume 101.5 H Mean Platelet Volume 7.2 L Monocytes # 0.7 Monocytes % 9.5 Neutrophils # 4.1 Neutrophils % 53.7 Nucleated Red Blood Cells # 0.0 Nucleated Red Blood Cells % 0.0 Platelet Count 251 Potassium Level 3.7 Red Blood Count 3.34 L Red Cell Distribution Width 20.3 H Sodium Level 138 Total Bilirubin 1.5 H Total Protein 5.8 L White Blood Count 7.6 Medications Medications Current Medications Hydromorphone HCl 1 mg 1 mg Q4H PRN IV PAIN Last administered on 07/25/16 09: 16; Admin Dose 1 MG; Start 07/24/16 at 03:00 Potassium Chloride/Dextrose/ Sod Cl (D5-NS + KCl 20 Meq) 1,000 ml @ 80 mls/hr [id number] IV Last administered on 07/25/16 03:50; Admin Dose 80 MLS/HR; Start at 13:00 Ondansetron HCl (Zofran Inj) 4 mg Q4H PRN IV NAUSEA AND/OR VOMITING Last administered on 07/25/16 09:24; Admin Dose 4 MG; Start 07/24/16 at 13:00 Pantoprazole (Protonix Iv) 40 mg DAILY@06 IV Last administered on 07/25/16t 05: 32; Admin Dose 40 MG; Start 07/24/16 at 14:00 ANDREI PIEDRA Jul 25, 2016 16:26
--- NOTE | 2016-07-27 08:27 | RADRPT ---
PROCEDURE: MRCP without contrast. CLINICAL INDICATION: Syncope, pancreatitis. TECHNIQUE: Routine MRCP was obtained without the administration of intravenous contrast. COMPARISON: CT, 08/19/2015. FINDINGS: There are multiple filling defects in the gallbladder, compatible with choledocholithiasis.. No int ra- or extra-hepatic biliary dilatation is identified. There is no filling defect or choledocholith iasis. There is no biliary stricture. The pancreatic duct is within normal limits. Large T2 hyperintense lesion occupying the left lobe of the liver measuring up to 10.0 cm, previousl y measuring 7 cm on 08/19/2015. There are numerous small surrounding heterogeneously T2 hyperintens e liver lesions. IMPRESSION: No radiologic evidence of pancreatitis, as clinically queried. Cholelithiasis without biliary dilatation, choledocholithiasis, or biliary obstruction. Interval increase size of large indeterminate mass occupying the left lobe of the liver in compariso n to 08/19/2015. There are surrounding satellite lesions, which appear to have increased in size an d number, albeit differences in modality limit comparison. RPTAT: EE .Jose David Narvaez MD, Date Time Electronically viewed and signed by .Jose David Narvaez MD, on 07/24/2016 16:48 .C/
--- NOTE | 2016-07-29 19:14 | DS ---
DATE OF ADMISSION: 07/24/2016 DATE OF DISCHARGE: 07/25/2016 DIAGNOSES BEFORE PATIENT LEFT AGAINST MEDICAL ADVICE: 1. Acute pancreatitis. 2. Near syncope. 3. Stage IV hepatocellular carcinoma. 4. Anemia, most likely secondary to chemotherapy. BRIEF HISTORY: The patient is a 51-year-old [place] gentleman with stage IV hepatocellular carcino ma. The patient takes Xeloda at home and patient follows with ____, oncologist at [facility] ER. The patient developed nonbloody vomiting and near syncopal episode with vomiting pro fusely and came to the [facility] following symptoms. The patient was given Zofra n for nausea and morphine for the pain, was given IV fluids and patient was admitted for further lorraine luation management to medical/surgical floor. The patient was diagnosed with acute pancreatitis. T he patient's lipase was elevated to 793. HOSPITAL COURSE: The patient was evaluated by Dr. Ferreira in gastroenterology consultation and was p ending MRCP. The patient was also placed n.p.o., was given IV fluids. Electrolytes were closely mo nitored. The patient was evaluated by Dr. Salamanca in oncology consultation. The patient also had cardiac enzymes x3, which were negative, for an evaluation for near syncopal episode. The patient' s diagnosis and plan of care was explained in detail to the patient and patient's . However, serina paulson decided to leave against medical advice on 07/25/2015 at 4:15 p.m. Dictated By: ANDREI PIEDRA PICU NURSE for CORY CABRERA MD SR/NTS Conf#: [id number] DID#: [id number]
== END 2016-07-25 16:30 | disposition left against medical advice (07) | DRG 439 ==
LOC: E/R 22:38 → MS2 07-24 00:53
PROVIDERS: ADMIT Internal Medicine; ATTEND Internal Medicine
DX: K85.90 Acute pancreatitis without necrosis or infection, unspecified (principal); C22.0 Liver cell carcinoma; R55 Syncope and collapse; D64.9 Anemia, unspecified
CPT/HCPCS: 36415; 71010; 74181; 80048; 80053; 81001; 81003; 82105; 82150; 82550; 82553; 83605; 83690; 83735; 84484; 85025; 87086; 93005; 93306; 96374; 96375; C9113; J1170; J2270; J2405; J2765; J3480; J7030; J7070

== ENCOUNTER 2016-08-30 00:23 | Emergency (ER) | payer SELFPAY ==
[~2016-08-30] VITALS: Ht 167.6 cm; Wt 90.5 kg
[~2016-08-30 00:23] MED LIST changes: +CAPE500T11 PO
[2016-08-30 00:37] VITALS: Ht 167.6 cm; Wt 90.5 kg
== END 2016-08-30 00:39 | disposition left against medical advice (07) ==
LOC: FTE 00:23
DX: Z53.21 Procedure and treatment not carried out due to patient leaving prior to being seen by health care provider (principal)

== ENCOUNTER 2016-09-10 12:49 | Inpatient (IN) | payer MEDICAID ==
[~2016-09-10] VITALS: Ht 160 cm; Wt 89.2 kg
--- NOTE | 2016-09-10 14:48 | ERA ---
ER Documentation Chief Complaint Date/Time DATE: 09/10/16 TIME: 14:48 Chief Complaint ap with vomiting since yesterday HPI The patient is a 51-year-old male, presenting to the ER because of upper abdominal pain, no aggravating or relieving factor, associated with fever of 101 and vomiting since last night. He denies similar symptoms previously, denies chest pain, dyspnea, dysuria, diarrhea, constipation. He does not smoke or drink. Past medical history: History of pancreatitis, hepatocellular carcinoma on chemotherapy, anemia Past surgical history:none ROS All systems reviewed and are negative except as per history of present illness. Medications Home Meds Reported Medications Hydrocodone/Acetaminophen (Eidson 10-325 Tablet) 1 Each Tablet, 1 EACH PO Q4H, TAB 09/10/16 Capecitabine* (Xeloda*) 500 Mg Tablet, 2000 MG PO BID, TAB 07/24/16 Discontinued Scripts Cephalexin* (Keflex*) 500 Mg Capsule, 500 MG PO QID for 7 Days, CAP Prov:MARKO SARAVIA PA-C 05/04/16 Sulfamethoxazole-Trimethoprim* (Bactrim* DS) 800-160 Mg Tab, 1 TAB PO DAILY for 7 Days, TAB Prov:MARKO SARAVIA PA-C 05/04/16 Ciprofloxacin Hcl* (Ciprofloxacin Hcl*) 500 Mg Tablet, 500 MG PO BID for 7 Days , TAB Prov:JORGE NAIR PA-C 04/25/16 Cyclobenzaprine Hcl* (Cyclobenzaprine Hcl*) 10 Mg Tablet, 10 MG PO TID, #15 TAB Prov:PHILIP DUFF NP 11/21/15 Ibuprofen* (Motrin*) 600 Mg Tab, 600 MG PO Q6H Y for PAIN AND OR ELEVATED TEMP, #30 TAB Prov:PHILIP DUFF NP 11/21/15 Hydrocodone Bit-Acetaminophen* (Eidson*) 5-325 Mg Tab, 1 TAB PO Q6 Y for PAIN, # 20 TAB Prov:PHILIP DUFF NP 11/21/15 Hydrocodone Bit-Acetaminophen* (Eidson*) 7.5-325 Tablet, 1 TAB PO Q4H Y for PAIN , #20 TAB Prov:CONNOR CUMMINS DO 08/19/15 Dicyclomine Hcl* (Bentyl*) 20 Mg Tablet, 20 MG PO QID, #30 TAB Prov:CONNOR CUMMINS DO 08/19/15 Ondansetron Hcl* (Zofran* ODT) 4 mg -ODT Tab.disper, 4 MG PO Q6 Y for NAUSEA AND /OR VOMITING, #10 TAB Prov:CONNOR CUMMINS DO 08/19/15 Allergies Allergies: Coded Allergies: ibuprofen (Verified Allergy, Mild, CHEMO PT, BLEEDING RISK, 09/10/16) morphine (Verified Adverse Reaction, Unknown, 09/10/16) Increase Heart rate, head spinning, shaking, vsion problem PMhx/Soc History of Surgery: Yes (Appendectomy 1976) Anesthesia Reaction: No Hx Neurological Disorder: No Hx Respiratory Disorders: No Hx Cardiac Disorders: No Hx Psychiatric Problems: No Hx Miscellaneous Medical Probl: No Hx Alcohol Use: No Hx Substance Use: No Hx Tobacco Use: No Smoking Status: Never smoker Physical Exam Vitals Vital Signs Date Time Temp Pulse Resp B/P Pulse Ox O2 Delivery O2 Flow Rate FiO2 09/10/16 19:00 98.1 84 16 119/72 99 Room Air 09/10/16 16:15 97.9 82 18 111/67 99 Room Air 09/10/16 12:52 97.4 95 20 113/70 99 Physical Exam Const: No acute distress. Head: Atraumatic. Eyes: Normal Conjunctiva. ENT: Normal External Ears, Nose and Mouth. Neck: Full range of motion. No meningismus. Resp: Clear to auscultation bilaterally. Cardio: Regular rate and rhythm, no murmurs. Abd: Soft, non distended, normal bowel sounds, moderate epigastric and right upper quadrant tenderness, no rigidity, rebound, CVA tenderness Skin: No petechiae or rashes. Back: No midline or flank tenderness. Ext: No cyanosis, or edema. Neur: Awake and alert. No focal deficit Psych: Normal Mood and Affect. Result Diagram: 09/10/16 1512 09/10/16 1512 Results 24 hrs Laboratory Tests Test 09/10/16 15:00 09/10/16 15:12 Urine Color YELLOW Urine Clarity CLEAR Urine pH 5.5 Urine Specific [place] 1.025 Urine Ketones TRACE Urine Nitrite NEGATIVE Urine Bilirubin NEGATIVE Urine Urobilinogen 0.2 E.U./dL Urine Leukocyte Esterase NEGATIVE Urine Microscopic RBC NONE SEEN/HPF Urine Microscopic WBC NONE SEEN/HPF Urine Calcium Oxalate Crystals MODERATE Urine Bacteria FEW Urine Hemoglobin NEGATIVE Urine Glucose NEGATIVE% Urine Total Protein TRACE White Blood Count 15.010^3/ul Red Blood Count 3.8110^6/ul Hemoglobin 13.8g/dl Hematocrit 38.0% Mean Corpuscular Volume 99.7fl Mean Corpuscular Hemoglobin 36.2pg Mean Corpuscular Hemoglobin Concent 36.3g/dl Red Cell Distribution Width 15.0% Platelet Count 34105^3/UL Mean Platelet Volume 9.5fl Neutrophils % 83.8% Lymphocytes % 10.3% Monocytes % 4.9% Eosinophils % 0.2% Basophils % 0.3% Nucleated Red Blood Cells % 0.0/100WBC Neutrophils # 12.610^3/ul Lymphocytes # 1.610^3/ul Monocytes # 0.710^3/ul Eosinophils # 0.010^3/ul Basophils # 0.110^3/ul Nucleated Red Blood Cells # 0.010^3/ul Prothrombin Time 14.9Sec Prothrombin Time Ratio 1.2 INR International Normalized Ratio 1.16 Activated Partial Thromboplast Time 24.8Sec Sodium Level 135mmol/L Potassium Level 4.0mmol/L Chloride Level 97mmol/L Carbon Dioxide Level 25mmol/L Anion Gap 17 Blood Urea Nitrogen 14mg/dl Creatinine 1.09mg/dl Glucose Level 156mg/dl Lactic Acid Level 1.7mmol/L Calcium Level 9.8mg/dl Total Bilirubin 1.2mg/dl Direct Bilirubin 0.00mg/dl Indirect Bilirubin 1.2mg/dl Aspartate Amino Transf (AST/SGOT) 35IU/L Alanine Aminotransferase (ALT/SGPT) 42IU/L Alkaline Phosphatase 107IU/L Troponin I < 0.012ng/ml Total Protein 7.7g/dl Albumin 4.4g/dl Globulin 3.30g/dl Albumin/Globulin Ratio 1.33 Lipase 511U/L Current Medications Medications (Trade) Dose Ordered Sig/Beny Route PRN Reason Start Time Stop Time Status Last Admin Dose Admin Sodium Chloride (NS) 2,760 ml @ 2,760 mls/hr BOLUS X1 ONCE IV 09/10/16 15:30 09/10/16 16:29 DC 09/10/16 15:32 Hydromorphone HCl (Dilaudid) 1 mg ONCE STAT IV 09/10/16 15:06 09/10/16 15:08 DC 09/10/16 15:31 Ondansetron HCl (Zofran Inj) 4 mg ONCE STAT IV 09/10/16 15:06 09/10/16 15:08 DC 09/10/16 15:31 IV Flush 10 ml 10 ml STK-MED ONCE .ROUTE 09/10/16 16:36 09/10/16 16:37 DC 09/10/16 17:16 Sodium Chloride (NS) 100 ml @ ud STK-MED ONCE .ROUTE 09/10/16 16:36 09/10/16 16:37 DC 09/10/16 17:16 Iohexol 30 ml 30 ml STK-MED ONCE .ROUTE 09/10/16 16:36 09/10/16 16:37 DC 09/10/16 17:17 Piperacillin Sod/ Tazobactam Sod (Zosyn 3.375gm/ 100 ml (Pmx)) 100 ml @ 200 mls/hr ONCE ONCE IVPB 09/10/16 18:30 09/10/16 18:59 DC 09/10/16 18:49 Hydromorphone HCl (Dilaudid) 1 mg ONCE STAT IV 09/10/16 18:37 09/10/16 18:38 DC 09/10/16 18:49 Procedures/[place] [id number] Radiology Main Line: [phone] DIAGNOSTIC IMAGING REPORT Patient: SVETLANA BRUNNER : 1965 Age: 51 Sex: M MR #: [id number] DOS: 09/10/16 1450 Ordering MD: HANK LUNA MD Location: E/R Room/Bed: PROCEDURE: XR Chest. CLINICAL INDICATION: Cough. Sepsis. TECHNIQUE: Single frontal view. COMPARISON: 07/23/2016. FINDINGS: The lungs are clear. The heart size is normal. There is no pleural effusion. There is no pneumothorax. IMPRESSION: 1. Normal chest radiograph. 2. No change from 07/23/2016. RPTAT: QQ .Alessandro Carrasco MD, MD Date Time Electronically viewed and signed by .Alessandro Carrasco MD, MD on 09/10/2016 15:24 .R/ CC: HANK LUNA MD [place] [id number] Radiology Main Line: [phone] DIAGNOSTIC IMAGING REPORT Patient: SVETLANA BRUNNER : 1965 Age: 51 Sex: M MR #: [id number] DOS: 09/10/16 1611 Ordering MD: HANK LUNA MD Location: E/R Room/Bed: PROCEDURE: CT scan of the abdomen and pelvis with and without IV contrast. CLINICAL INDICATION: History of common bile duct cancer on chemotherapy. TECHNIQUE: Thin section axial, coronal and sagittal images were performed through the abdomen and pelvis without contrast and then following the injection of 100 cc of Omnipaque-300. Low-dose protocol imaging was utilized. One or more of the following dose reduction techniques were used: - Automated exposure control. - Adjustment of the mA and/or kV according to patient size. Use of iterative reconstruction technique. Radiation Dose: CTDI: 21.1 and DLP: 1350 COMPARISON: None FINDINGS: Lungs and pleural space: There is peripheral compressive atelectasis in the right left lower lobes attributed to supine positioning. The pulmonary vasculature lung love are otherwise normal. No pleural effusion is present. Heart: Normal. No pericardial effusion is present. The liver, common bile duct and gallbladder: The liver measures as 19.8 cm AP. There is fatty infiltration of the liver with fatty sparing involving portions of the left lobe of the liver. There are poorly defined solid hepatic masses in the right lobe of the liver. There is a large mass in the left lobe of the liver measuring up to 9.8 cm AP by 9.3 cm transverse by 9.3 cm in height. There are additional smaller solid hepatic lesions in the superior aspect of the left lobe the liver. Findings are suspicious for hepatic metastases. The hepatic and portal veins are patent. No intrahepatic biliary ductal dilatation is identified. There are gallstones in the gallbladder. The gallbladder wall is not thickened. The extrahepatic common bile duct is normal. Pancreas: The pancreas is normal. Gastrointestinal: There is particulate matter in the stomach. There is no evidence of a hiatal hernia or gastric wall thickening. There is fluid in the small bowel loops which do not appear dilated and are not organized. There is fluid in the colon. There is no evidence of diverticulosis or diverticulitis. The vermiform appendix is not clearly visualized. There is some fecal material in the sigmoid colon and rectal ampulla. There is a small umbilical hernia which contains only fat. Kidneys and bladder : The kidneys and urinary bladder are normal. There is a 4 mm lesion to small to characterize in the medial aspect of the lower portion of the upper third of the left kidney and a can be further characterize with a renal sonogram. No other lesions are identified in the kidneys. There is no evidence of hydronephrosis. The urinary bladder is normal with no bladder wall thickening or bladder stone identified. Adrenal glands: Normal. Spleen: The spleen measures 12.94 cm in length which is borderline enlarged. Lymph nodes: There is a 9 mm periportal lymph node between the gallbladder and inferior vena cava. There is a 7 mm minimal transverse retroperitoneal lymph node ventral to the proximal third portion of the duodenum. No enlarged pelvic sidewall or inguinal lymph nodes are identified. Reproductive system: The prostate gland is normal in size and contain small calcifications. The seminal vesicles are normal. No free fluid is noted in the pelvis. Bony elements: There are degenerative osteophytes in the thoracic and lumbar spine without evidence of spondylolysis or spondylolisthesis. There is disk space narrowing at L4-5 with a 4.7 mm AP dorsal central and paracentral disk osteophyte complex noted. No central canal stenosis is present. Vasculature: Normal. IMPRESSION: 1. Hepatomegaly with multiple irregular enhancing hepatic masses, the largest resting in the left lobe of the liver measuring roughly 9.8 cm AP by 9.3 cm transverse by 9.3 cm in height which has increased in size when compared to 04/2016. This is accessible for hepatic biopsy if needed. Cholelithiasis developing since 08/19/2015. 2. Fatty infiltration of the liver with focal areas of fatty sparing. 3. Reflex ileus with fluid in the small bowel and colon. No evidence of a mechanical bowel obstruction. 4. 4 mm lesion to small to characterize in the medial lower portion of the upper third of the left kidney. Ultrasound recommended for characterization. This may be the result of a cyst. 5. Borderline splenomegaly. 6. Osteoarthritis of the thoracic and lumbosacral spine. No evidence of a bone metastasis. 7. New 9 mm periportal lymph node. RPTAT:AAJJ Chivo Molina Physician Date Time Electronically viewed and signed by Chivo Molina Physician on 09/10/2016 17:52 JM/ CC: HANK LUNA MD MEDICAL MAKING DECISION: The patient is a 51-year-old male, presenting with acute biliary colic, suspected gallstone pancreatitis. He was treated with dilated Dilaudid 1 mg IV 2 for pain and Zofran 4 mg IV 1 for nausea and normal saline 30 mL/kg IV for acute clinical dehydration and Zosyn IV empirically with good response. The differential diagnoses considered include but are not limited to cholelithiasis, cholecystitis, cystitis, pancreatitis, hepatitis, gastritis, peptic ulcer disease, gastric ulcer, appendicitis, diverticulitis, cholangitis, choledocholithiasis, partial small bowel obstruction. Consultation: I discussed the patient with the on-call general surgeon Dr. Martinez at 1815 hrs., who was made aware of the lab, the treatment, the patient condition; he accepted the consult I discussed the patient with his physician Dr. Perez at 1820 hrs. he recommended admit the patient to panel Departure Diagnosis: Primary Impression: Biliary colic Additional Impressions: Gallstone pancreatitis Anemia Condition: Stable Comments I discussed the findings with the patient. I discussed the patient with the on- call hospitalist who was made aware of the lab, the treatment, the patient condition and the pending ultrasound. The patient is admitted to medical surgery bed as 1846 hrs. HANK LUNA MD Sep 10, 2016 14:48
[2016-09-10] MEDS ORDERED: ONDANSETRON 4 MG INJ IV STA (15:06)
[2016-09-10] MEDS ORDERED: HYDROmorphONE 1 MG/ML SYG IV STA ×2 (15:06→18:37)
--- NOTE | 2016-09-10 15:24 | RADRPT ---
PROCEDURE: XR Chest. CLINICAL INDICATION: Cough. Sepsis. TECHNIQUE: Single frontal view. COMPARISON: 07/23/2016. FINDINGS: The lungs are clear. The heart size is normal. There is no pleural effusion. There is no pneumothorax. IMPRESSION: 1. Normal chest radiograph. 2. No change from 07/23/2016. RPTAT: QQ .Alessandro Carrasco MD, MD Date Time Electronically viewed and signed by .Alessandro Carrasco MD, MD on 09/10/2016 15:24 .R/
[2016-09-10 15:28] LABS: ADD SCAN DIFF NO
[2016-09-10] MEDS ORDERED: SOD CHLORIDE 0.9% 2,760 ML IV ONE (15:30)
[2016-09-10 15:31] LABS: BASOPHIL # 0.1 10^3/ul (0.0-0.1); BASOPHILS % 0.3 % (0.0-2.0); EOSINOPHILS % 0.2 % (0.0-7.0); HEMOGLOBIN 13.8 g/dl (14.0-18.0); LYMPHOCYTES # 1.6 10^3/ul (0.8-2.9); LYMPHOCYTES % 10.3 % (15.0-51.0); MEAN CORPUSCULAR HEMOGLOBIN 36.2 pg (29.0-33.0); MEAN CORPUSCULAR HGB CONC 36.3 g/dl (32.0-37.0); MEAN CORPUSCULAR VOLUME 99.7 fl (82.0-101.0); MEAN PLATELET VOLUME 9.5 fl (7.4-10.4); MONOCYTE # 0.7 10^3/ul (0.3-0.9); MONOCYTES % 4.9 % (0.0-11.0); NEUTROPHIL # 12.6 10^3/ul (1.6-7.5); NEUTROPHILS % 83.8 % (39.0-77.0); PLATELET COUNT 268 10^3/UL (140-415); RED BLOOD COUNT 3.81 10^6/ul (4.70-6.10)
[2016-09-10 15:40] LABS: INR 1.16; PROTIME 14.9 Sec (12.2-14.2); PT RATIO 1.2
[2016-09-10 15:41] LABS: PARTIAL THROMBOPLASTIN TIME 24.8 Sec (25.0-35.0)
[2016-09-10 15:42] LABS: CHLORIDE 97 mmol/L (97-110)
[2016-09-10 15:42] LABS: ADD UMIC YES; URINE BILIRUBIN (Dip) NEGATIVE (NEGATIVE); URINE BLOOD (Dip) NEGATIVE (NEGATIVE); URINE COLOR YELLOW (YELLOW); URINE GLUCOSE (Dip) NEGATIVE (NEGATIVE); URINE KETONES (Dip) TRACE (NEGATIVE); URINE LEUKOCYTE ESTERASE (Dip) NEGATIVE (NEGATIVE); URINE NITRITE (Dip) NEGATIVE (NEGATIVE); URINE TOTAL PROTEIN (Dip) TRACE (NEGATIVE); URINE UROBILINOGEN (Dip) 0.2 E.U./dL (0.1-1.0)
[2016-09-10 15:43] LABS: ALBUMIN 4.4 g/dl (3.3-4.9); SODIUM 135 mmol/L (135-144)
[2016-09-10 15:46] LABS: ALANINE AMINOTRANSFERASE 42 IU/L (13-69); ALBUMIN/GLOBULIN RATIO 1.33; ALKALINE PHOSPHATASE 107 IU/L (42-121); ANION GAP 17 (8-16); ASPARTATE AMINO TRANSFERASE 35 IU/L (15-46); BILIRUBIN,INDIRECT 1.2 mg/dl (0-1.1); BILIRUBIN,TOTAL 1.2 mg/dl (0.2-1.3); BLOOD UREA NITROGEN 14 mg/dl (7-20); CARBON DIOXIDE 25 mmol/L (21-31); CREATININE 1.09 mg/dl (0.61-1.24); GLUCOSE 156 mg/dl (70-220); TOTAL PROTEIN 7.7 g/dl (6.1-8.1)
[2016-09-10 15:47] LABS: CALCIUM 9.8 mg/dl (8.4-10.2)
[2016-09-10] MEDS ORDERED: HYDR-902 PO (15:49)
[2016-09-10 15:58] LABS: BACTERIA,URINE FEW; URINE RBCS NONE SEEN /HPF (0)
[2016-09-10 16:04] LABS: TROPONIN-I < 0.012 ng/ml (0.00-0.12)
[2016-09-10] MEDS ORDERED: SOD CHLORIDE 0.9% 100 ML ONE (16:36)
[2016-09-10] MEDS ORDERED: IOHEXOL 300MG/ML 30 ML BTL ONE (16:36)
--- NOTE | 2016-09-10 17:52 | RADRPT ---
PROCEDURE: CT scan of the abdomen and pelvis with and without IV contrast. CLINICAL INDICATION: History of common bile duct cancer on chemotherapy. TECHNIQUE: Thin section axial, coronal and sagittal images were performed through the abdomen and pelvis without contrast and then following the injection of 100 cc of Omnipaque-300. Low-dose protoc ol imaging was utilized. One or more of the following dose reduction techniques were used: - Automated exposure control. - Adjustment of the mA and/or kV according to patient size. Use of iterative reconstruction technique. Radiation Dose: CTDI: 21.1 and DLP: 1350 COMPARISON: None FINDINGS: Lungs and pleural space: There is peripheral compressive atelectasis in the right left lower lobes a ttributed to supine positioning. The pulmonary vasculature lung love are otherwise normal. No pl eural effusion is present. Heart: Normal. No pericardial effusion is present. The liver, common bile duct and gallbladder: The liver measures as 19.8 cm AP. There is fatty infil tration of the liver with fatty sparing involving portions of the left lobe of the liver. There are poorly defined solid hepatic masses in the right lobe of the liver. There is a large mass in the l eft lobe of the liver measuring up to 9.8 cm AP by 9.3 cm transverse by 9.3 cm in height. There are additional smaller solid hepatic lesions in the superior aspect of the left lobe the liver. Findin gs are suspicious for hepatic metastases. The hepatic and portal veins are patent. No intrahepatic biliary ductal dilatation is identified. There are gallstones in the gallbladder. The gallbladder wall is not thickened. The extrahepatic common bile duct is normal. Pancreas: The pancreas is normal. Gastrointestinal: There is particulate matter in the stomach. There is no evidence of a hiatal zackary ia or gastric wall thickening. There is fluid in the small bowel loops which do not appear dilated and are not organized. There is fluid in the colon. There is no evidence of diverticulosis or dive rticulitis. The vermiform appendix is not clearly visualized. There is some fecal material in the sigmoid colon and rectal ampulla. There is a small umbilical hernia which contains only fat. Kidneys and bladder : The kidneys and urinary bladder are normal. There is a 4 mm lesion to small t o characterize in the medial aspect of the lower portion of the upper third of the left kidney and a can be further characterize with a renal sonogram. No other lesions are identified in the kidneys. There is no evidence of hydronephrosis. The urinary bladder is normal with no bladder wall thicke elda or bladder stone identified. Adrenal glands: Normal. Spleen: The spleen measures 12.94 cm in length which is borderline enlarged. Lymph nodes: There is a 9 mm periportal lymph node between the gallbladder and inferior vena cava. There is a 7 mm minimal transverse retroperitoneal lymph node ventral to the proximal third portion of the duodenum. No enlarged pelvic sidewall or inguinal lymph nodes are identified. Reproductive system: The prostate gland is normal in size and contain small calcifications. The suhas inal vesicles are normal. No free fluid is noted in the pelvis. Bony elements: There are degenerative osteophytes in the thoracic and lumbar spine without evidence of spondylolysis or spondylolisthesis. There is disk space narrowing at L4-5 with a 4.7 mm AP dorsa l central and paracentral disk osteophyte complex noted. No central canal stenosis is present. Vasculature: Normal. IMPRESSION: 1. Hepatomegaly with multiple irregular enhancing hepatic masses, the largest resting in the left l obe of the liver measuring roughly 9.8 cm AP by 9.3 cm transverse by 9.3 cm in height which has incr eased in size when compared to 08/19/2015. This is accessible for hepatic biopsy if needed. Choleli thiasis developing since 08/19/2015. 2. Fatty infiltration of the liver with focal areas of fatty sparing. 3. Reflex ileus with fluid in the small bowel and colon. No evidence of a mechanical bowel obstruc tion. 4. 4 mm lesion to small to characterize in the medial lower portion of the upper third of the left kidney. Ultrasound recommended for characterization. This may be the result of a cyst. 5. Borderline splenomegaly. 6. Osteoarthritis of the thoracic and lumbosacral spine. No evidence of a bone metastasis. 7. New 9 mm periportal lymph node. RPTAT:AAJJ Physician Manjinder Date Time Electronically viewed and signed by Chivo Molina Physician on 09/10/2016 17:52 MICHAEL/
[2016-09-10] MEDS ORDERED: PIPER-TAZO 3.375 GM IV (PMX) 100 ML IVPB ONE (18:30)
--- NOTE | 2016-09-10 19:47 | RADRPT ---
PROCEDURE: US Abdomen. CLINICAL INDICATION: Evaluate for acute cholecystitis. TECHNIQUE: Multiple real-time images were acquired of the patient's abdomen and retroperitoneum ut ilizing a high resolution transducer. COMPARISON: CT scan of the abdomen pelvis 09/10/2016. FINDINGS: The pancreas is obscured by bowel gas. The liver is enlarged measuring over 19 cm sagittal. There is a complex necrotic mass with internal blood flow occupying most of the left lobe of the liver measuring at least 11.5 x 11 x 8 cm. Addit ional small nodules are identified in the right lobe of the liver. There are multiple gallstones in the gallbladder. Gallbladder wall is normal measuring 1.5 mm. No pericholecystic fluid is identified. The common bile duct measures 3.3 mm and is normal. The right kidney measures 12.5 cm in length and is unremarkable. The left kidney is not evaluated. The spleen is not evaluated. IMPRESSION: 1. Cholelithiasis without evidence of gallbladder wall thickening or pericholecystic fluid to sugges t acute cholecystitis. 2. Normal common bile duct. 3. Multiple hepatic masses are identified. See CT scan abdomen pelvis performed the same day for d etails. The largest hepatic mass by ultrasound measures approximately 11.5 x 11 x 8 cm with interna l blood flow noted within the mass Doppler imaging. 4. Echogenic liver consistent with fatty infiltration. RPTAT:AAJJ Physician Manjinder Date Time Electronically viewed and signed by Physician Manjinder on 09/10/2016 19:47 MICHAEL/
[2016-09-10 20:56] VITALS: TEMP 97.9
[2016-09-10 21:45] VITALS: BP 136/90; RESP 18
--- NOTE | 2016-09-10 22:46 | CONS ---
Date/Time of Note Date/Time of Note DATE: 09/10/16 TIME: 22:45 Assessment/Plan Assessment/Plan Chief Complaint/Hosp Course - Hepatocellular carcinoma. treated with Xeloda. chemo - on hold - Gallstone pancreatitis, Symptomatic biliary colic with cholelithiasis Dr. Ferreira is asked to see patient in gastroenterology consultation. LEUKOCYTOSIS- REACTIVE MONITOR ANEMIA- COMPLEX MONITOR Problems: Consultation Date/Type/Reason Admit Date/Time Sep 10, 2016 at 19:45 Date of Consultation: Sep 10, 2016 Type of Consultation: HEMEONC Reason for Consultation HCC Referring Provider: MAUDE GODWIN DO Hx of Present Illness The patient is a 51-year-old male, presenting to the ER because of upper abdominal pain, no aggravating or relieving factor, associated with fever of 101 and vomiting since last night. He denies similar symptoms previously, denies chest pain, dyspnea, dysuria, diarrhea, constipation. He does not smoke or drink. He has Hepatocellular Carcinoma, diagnosed 2 years ago, currently on oral Chemotherapy which is causing a dermatitis of the palms of his hands and the soles of his feet. Saw his Oncologist earlier today, and his dose was cut from 4 pills BID to 1 pill BID. He also has Crohn's Disease. He was hospitalized here about 2 months ago with similar symptoms, but he denies ever having Pancreatitis. However, when I review the admit from 2016 , He was specifically diagnosed with Acute Pancreatitis. While in the ED, he was treated with dilated Dilaudid 1 mg IV 2 for pain and Zofran 4 mg IV 1 for nausea and normal saline 30 mL/kg IV for acute clinical dehydration and Zosyn IV empirically with good response. I WAS ASKED TO PROVIDE HEMEONC CONSULT ROS General: Admits: Fever Denies: Chills, Poor Appetite, Generalized Body Aches Eyes: Admits: Denies: Blurry Vision, Double Vision HENT: Admits: Denies: Ear Pain/Pressure, Runny/Stuffy Nose, Sore Throat Cardiovascular: Admits: Denies: Chest Pain, Palpitations, Leg Swelling Pulmonary: Admits: Denies: Cough, Wheeze, Shortness of Breath Gastrointestinal: Admits: Abdominal Pain, Nausea, Vomiting Denies: Diarrhea, Blood in Stool, Black-Colored Stool Urogenital: Admits: Blood in Urine, sometimes Denies: Burning with Urination, Urinary Frequency Musculoskeletal: Admits: Denies: Joint Pain, Joint Swelling, Muscle Pain Neurological: Admits: Denies: Headache, Dizziness, Numbness, Tingling, Shooting Pains Integumentary: Admits: Denies: Rash, Itch Endocrine: Admits: Denies: Excessive Thirst, Excessive Hunger, Intolerant to Cold , Intolerant to Heat Psychiatric: Admits: Denies: Anxiety, Depression PMH/Family/Social Past Medical History Anemia; Crohn's Disease; Hepatocellular Carcinoma diagnosed 2 years ago - on oral Chemo BID at 10 am and 10 pm Past Surgical History Appendectomy 1976 per ER records. (Patient specifically told me no surgeries, but I did not specifically ask about his appendix.) Social History Alcohol Use: none Smoking Status: Never smoker Drug Use: none Exam/Review of Systems Vital Signs Vitals Vital Signs Date Time Temp Pulse Resp B/P Pulse Ox O2 Delivery O2 Flow Rate FiO2 09/10/16 21:45 97.5 91 18 136/90 100 09/10/16 20:56 Room Air Exam Exam General: WD/WN 51 year old [place] male, alert and oriented, in no acute distress Eyes: Sclera White, EOMI HENT: Normocephalic/Atraumatic, External Ears/Nose Normal, Moist Mucus Membranes Neck: Supple, Trachea Midline Cardiovascular: Normal Rate, Normal Rhythm, Normal S1 and S2, No Murmur, No Extra Sounds Pulmonary: Clear to Auscultation Bilaterally, Normal Respiratory Effort, No Rales, Rhonchi or Wheezes Gastrointestinal: Normoactive Bowel Sounds, Soft, Generalized tenderness. No guarding or rebound Urogenital: Deferred Musculoskeletal: Normal Muscle Bulk and Tone Neurological: CN II - XII Grossly Intact, Non-Focal, Speech Normal Integumentary: Normal Moisture and Temperature, Good Turgor, No Jaundice, No Rash Lymphatic: No Cervical Lymphadenopathy Psychiatric: Appropriate Mood and Affect, Good Eye Contact Labs Result Diagram: 09/10/16 1512 09/10/16 1512 Medications Medications Home Meds Reported Medications Hydrocodone/Acetaminophen ([place] 10-325 Tablet) 1 Each Tablet, 1 EACH PO Q4H, TAB 09/10/16 Capecitabine* (Xeloda*) 500 Mg Tablet, 2000 MG PO BID, TAB 07/24/16 Discontinued Scripts Cephalexin* (Keflex*) 500 Mg Capsule, 500 MG PO QID for 7 Days, CAP Prov:MARKO SARAVIA 05/04/16 Sulfamethoxazole-Trimethoprim* (Bactrim* DS) 800-160 Mg Tab, 1 TAB PO DAILY for 7 Days, TAB Prov:MARKO SARAVIA 05/04/16 Ciprofloxacin Hcl* (Ciprofloxacin Hcl*) 500 Mg Tablet, 500 MG PO BID for 7 Days , TAB Prov:JORGE NAIR 04/25/16 Cyclobenzaprine Hcl* (Cyclobenzaprine Hcl*) 10 Mg Tablet, 10 MG PO TID, #15 TAB Prov:PHILIP DUFF [employer] 11/21/15 Ibuprofen* (Motrin*) 600 Mg Tab, 600 MG PO Q6H Y for PAIN AND OR ELEVATED TEMP, #30 TAB Prov:PHILIP DUFF [employer] 11/21/15 Hydrocodone Bit-Acetaminophen* ([place]*) 5-325 Mg Tab, 1 TAB PO Q6 Y for PAIN, # 20 TAB Prov:PHILIP DUFF [employer] 11/21/15 Hydrocodone Bit-Acetaminophen* ([place]*) 7.5-325 Tablet, 1 TAB PO Q4H Y for PAIN , #20 TAB Prov:CONNOR CUMMINS DO 08/19/15 Dicyclomine Hcl* (Bentyl*) 20 Mg Tablet, 20 MG PO QID, #30 TAB Prov:CONNOR CUMMINS DO 08/19/15 Ondansetron Hcl* (Zofran* ODT) 4 mg -ODT Tab.disper, 4 MG PO Q6 Y for NAUSEA AND /OR VOMITING, #10 TAB Prov:CONNOR CUMMINS DO 08/19/15 Social History Smoking Status: Never smoker Exam/Review of Systems Results Procedures Procedures Laboratory Tests Test 09/10/16 15:00 09/10/16 15:12 Urine Color YELLOW Urine Clarity CLEAR Urine pH 5.5 Urine Specific [place] 1.025 Urine Ketones TRACE Urine Nitrite NEGATIVE Urine Bilirubin NEGATIVE Urine Urobilinogen 0.2 E.U./dL Urine Leukocyte Esterase NEGATIVE Urine Microscopic RBC NONE SEEN/HPF Urine Microscopic WBC NONE SEEN/HPF Urine Calcium Oxalate Crystals MODERATE Urine Bacteria FEW Urine Hemoglobin NEGATIVE Urine Glucose NEGATIVE% Urine Total Protein TRACE White Blood Count 15.010^3/ul Red Blood Count 3.8110^6/ul Hemoglobin 13.8g/dl Hematocrit 38.0% Mean Corpuscular Volume 99.7fl Mean Corpuscular Hemoglobin 36.2pg Mean Corpuscular Hemoglobin Concent 36.3g/dl Red Cell Distribution Width 15.0% Platelet Count 93750^3/UL Mean Platelet Volume 9.5fl Neutrophils % 83.8% Lymphocytes % 10.3% Monocytes % 4.9% Eosinophils % 0.2% Basophils % 0.3% Nucleated Red Blood Cells % 0.0/100WBC Neutrophils # 12.610^3/ul Lymphocytes # 1.610^3/ul Monocytes # 0.710^3/ul Eosinophils # 0.010^3/ul Basophils # 0.110^3/ul Nucleated Red Blood Cells # 0.010^3/ul Prothrombin Time 14.9Sec Prothrombin Time Ratio 1.2 INR International Normalized Ratio 1.16 Activated Partial Thromboplast Time 24.8Sec Sodium Level 135mmol/L Potassium Level 4.0mmol/L Chloride Level 97mmol/L Carbon Dioxide Level 25mmol/L Anion Gap 17 Blood Urea Nitrogen 14mg/dl Creatinine 1.09mg/dl Glucose Level 156mg/dl Lactic Acid Level 1.7mmol/L Calcium Level 9.8mg/dl Total Bilirubin 1.2mg/dl Direct Bilirubin 0.00mg/dl Indirect Bilirubin 1.2mg/dl Aspartate Amino Transf (AST/SGOT) 35IU/L Alanine Aminotransferase (ALT/SGPT) 42IU/L Alkaline Phosphatase 107IU/L Troponin I < 0.012ng/ml Total Protein 7.7g/dl Albumin 4.4g/dl Globulin 3.30g/dl Albumin/Globulin Ratio 1.33 Lipase 511U/L RADIOLOGY: PROCEDURE: US Abdomen. CLINICAL INDICATION: Evaluate for acute cholecystitis. COMPARISON: CT scan of the abdomen pelvis 09/10/2016. IMPRESSION: 1. Cholelithiasis without evidence of gallbladder wall thickening or pericholecystic fluid to suggest acute cholecystitis. 2. Normal common bile duct. 3. Multiple hepatic masses are identified. See CT scan abdomen pelvis performed the same day for details. The largest hepatic mass by ultrasound measures approximately 11.5 x 11 x 8 cm with internal blood flow noted within the mass Doppler imaging. 4. Echogenic liver consistent with fatty infiltration. PROCEDURE: XR Chest. CLINICAL INDICATION: Cough. Sepsis. TECHNIQUE: Single frontal view. COMPARISON: 07/23/2016. IMPRESSION: 1. Normal chest radiograph. 2. No change from 07/23/2016. PROCEDURE: CT scan of the abdomen and pelvis with and without IV contrast. CLINICAL INDICATION: History of common bile duct cancer on chemotherapy. COMPARISON: None IMPRESSION: 1. Hepatomegaly with multiple irregular enhancing hepatic masses, the largest resting in the left lobe of the liver measuring roughly 9.8 cm AP by 9.3 cm transverse by 9.3 cm in height which has increased in size when compared to 04/2016. This is accessible for hepatic biopsy if needed. Cholelithiasis developing since 08/19/2015. 2. Fatty infiltration of the liver with focal areas of fatty sparing. 3. Reflex ileus with fluid in the small bowel and colon. No evidence of a mechanical bowel obstruction. 4. 4 mm lesion to small to characterize in the medial lower portion of the upper third of the left kidney. Ultrasound recommended for characterization. This may be the result of a cyst. 5. Borderline splenomegaly. 6. Osteoarthritis of the thoracic and lumbosacral spine. No evidence of a bone metastasis. 7. New 9 mm periportal lymph node. Result Diagram: 09/10/16 1512 09/10/16 1512 Results 24 hrs Laboratory Tests Test 09/10/16 15:00 09/10/16 15:12 09/10/16 18:55 09/10/16 20:55 Urine Color YELLOW Urine Clarity CLEAR Urine pH 5.5 Urine Specific [place] 1.025 Urine Ketones TRACE Urine Nitrite NEGATIVE Urine Bilirubin NEGATIVE Urine Urobilinogen 0.2 E.U./dL Urine Leukocyte Esterase NEGATIVE Urine Microscopic RBC NONE SEEN Urine Microscopic WBC NONE SEEN Urine Calcium Oxalate Crystals MODERATE Urine Bacteria FEW Urine Hemoglobin NEGATIVE Urine Glucose NEGATIVE Urine Total Protein TRACE White Blood Count 15.0 #H Red Blood Count 3.81 L Hemoglobin 13.8 L Hematocrit 38.0 L Mean Corpuscular Volume 99.7 Mean Corpuscular Hemoglobin 36.2 H Mean Corpuscular Hemoglobin Concent 36.3 Red Cell Distribution Width 15.0 #H Platelet Count 268 Mean Platelet Volume 9.5 # Neutrophils % 83.8 H Lymphocytes % 10.3 L Monocytes % 4.9 Eosinophils % 0.2 Basophils % 0.3 Nucleated Red Blood Cells % 0.0 Neutrophils # 12.6 H Lymphocytes # 1.6 Monocytes # 0.7 Eosinophils # 0.0 Basophils # 0.1 Nucleated Red Blood Cells # 0.0 Prothrombin Time 14.9 H Prothrombin Time Ratio 1.2 INR International Normalized Ratio 1.16 Activated Partial Thromboplast Time 24.8 L Sodium Level 135 Potassium Level 4.0 Chloride Level 97 Carbon Dioxide Level 25 Anion Gap 17 H Blood Urea Nitrogen 14 Creatinine 1.09 Glucose Level 156 Lactic Acid Level 1.7 1.6 1.9 Calcium Level 9.8 Total Bilirubin 1.2 Direct Bilirubin 0.00 Indirect Bilirubin 1.2 H Aspartate Amino Transf (AST/SGOT) 35 Alanine Aminotransferase (ALT/SGPT) 42 Alkaline Phosphatase 107 Troponin I < 0.012 Total Protein 7.7 Albumin 4.4 Globulin 3.30 H Albumin/Globulin Ratio 1.33 Lipase 511 H ETHEL JAMIL MD Sep 10, 2016 22:45
--- NOTE | 2016-09-10 23:17 | HP ---
Date/Time of Note Date/Time of Note DATE: 09/10/16 TIME: 23:17 Assessment/Plan VTE Prophylaxis VTE Prophylaxis Intervention: other (Lovenox) Assessment/Plan Assessment/Plan 1) Biliary colic - Admit to Med Surg - NPO - Consult requested from Dr. Martinez, General Surgery, from the ED. - AM Labs 2) Gallstone pancreatitis (lipase = 511) 3) Anemia, likely due to chronic disease/cancer 4) Hepatocellular Carcinoma, Stage IV or oral Chemotherapy - Consult already requested from Dr. JAMIL HPI/ROS Admit Date/Time Admit Date/Time Sep 10, 2016 at 19:45 Hx of Present Illness The patient is a 51-year-old male, presenting to the ER because of upper abdominal pain, no aggravating or relieving factor, associated with fever of 101 and vomiting since last night. He denies similar symptoms previously, denies chest pain, dyspnea, dysuria, diarrhea, constipation. He does not smoke or drink. He has Hepatocellular Carcinoma, diagnosed 2 years ago, currently on oral Chemotherapy which is causing a dermatitis of the palms of his hands and the soles of his feet. Saw his Oncologist earlier today, and his dose was cut from 4 pills BID to 1 pill BID. He also has Crohn's Disease. He was hospitalized here about 2 months ago with similar symptoms, but he denies ever having Pancreatitis. However, when I review the admit from 2016 , He was specifically diagnosed with Acute Pancreatitis. While in the ED, he was treated with dilated Dilaudid 1 mg IV 2 for pain and Zofran 4 mg IV 1 for nausea and normal saline 30 mL/kg IV for acute clinical dehydration and Zosyn IV empirically with good response. ROS General: Admits: Fever Denies: Chills, Poor Appetite, Generalized Body Aches Eyes: Admits: Denies: Blurry Vision, Double Vision HENT: Admits: Denies: Ear Pain/Pressure, Runny/Stuffy Nose, Sore Throat Cardiovascular: Admits: Denies: Chest Pain, Palpitations, Leg Swelling Pulmonary: Admits: Denies: Cough, Wheeze, Shortness of Breath Gastrointestinal: Admits: Abdominal Pain, Nausea, Vomiting Denies: Diarrhea, Blood in Stool, Black-Colored Stool Urogenital: Admits: Blood in Urine, sometimes Denies: Burning with Urination, Urinary Frequency Musculoskeletal: Admits: Denies: Joint Pain, Joint Swelling, Muscle Pain Neurological: Admits: Denies: Headache, Dizziness, Numbness, Tingling, Shooting Pains Integumentary: Admits: Denies: Rash, Itch Endocrine: Admits: Denies: Excessive Thirst, Excessive Hunger, Intolerant to Cold , Intolerant to Heat Psychiatric: Admits: Denies: Anxiety, Depression PMH/Family/Social Past Medical History Anemia; Crohn's Disease; Hepatocellular Carcinoma diagnosed 2 years ago - on oral Chemo BID at 10 am and 10 pm Past Surgical History Appendectomy 1977 per ER records. (Patient specifically told me no surgeries, but I did not specifically ask about his appendix.) Social History Alcohol Use: none Smoking Status: Never smoker Drug Use: none Exam/Review of Systems Vital Signs Vitals Vital Signs Date Time Temp Pulse Resp B/P Pulse Ox O2 Delivery O2 Flow Rate FiO2 09/10/16 21:45 97.5 91 18 136/90 100 09/10/16 20:56 Room Air Exam Exam General: WD/WN 51 year old [place] male, alert and oriented, in no acute distress Eyes: Sclera White, EOMI HENT: Normocephalic/Atraumatic, External Ears/Nose Normal, Moist Mucus Membranes Neck: Supple, Trachea Midline Cardiovascular: Normal Rate, Normal Rhythm, Normal S1 and S2, No Murmur, No Extra Sounds Pulmonary: Clear to Auscultation Bilaterally, Normal Respiratory Effort, No Rales, Rhonchi or Wheezes Gastrointestinal: Normoactive Bowel Sounds, Soft, Generalized tenderness. No guarding or rebound Urogenital: Deferred Musculoskeletal: Normal Muscle Bulk and Tone Neurological: CN II - XII Grossly Intact, Non-Focal, Speech Normal Integumentary: Normal Moisture and Temperature, Good Turgor, No Jaundice, No Rash Lymphatic: No Cervical Lymphadenopathy Psychiatric: Appropriate Mood and Affect, Good Eye Contact Labs Result Diagram: 09/10/16 1512 09/10/16 1512 Medications Medications Home Meds Reported Medications Hydrocodone/Acetaminophen ([place] 10-325 Tablet) 1 Each Tablet, 1 EACH PO Q4H, TAB 09/10/16 Capecitabine* (Xeloda*) 500 Mg Tablet, 2000 MG PO BID, TAB 07/24/16 Discontinued Scripts Cephalexin* (Keflex*) 500 Mg Capsule, 500 MG PO QID for 7 Days, CAP Prov:MARKO SARAVIA PA-C 05/04/16 Sulfamethoxazole-Trimethoprim* (Bactrim* DS) 800-160 Mg Tab, 1 TAB PO DAILY for 7 Days, TAB Prov:MARKO SARAVIA PA-C 05/04/16 Ciprofloxacin Hcl* (Ciprofloxacin Hcl*) 500 Mg Tablet, 500 MG PO BID for 7 Days , TAB Prov:JORGE NAIR PA-C 04/25/16 Cyclobenzaprine Hcl* (Cyclobenzaprine Hcl*) 10 Mg Tablet, 10 MG PO TID, #15 TAB Prov:PHILIP DUFF FISHER HOOP NET 11/21/15 Ibuprofen* (Motrin*) 600 Mg Tab, 600 MG PO Q6H Y for PAIN AND OR ELEVATED TEMP, #30 TAB Prov:PHILIP DUFF FISHER HOOP NET 11/21/15 Hydrocodone Bit-Acetaminophen* ([place]*) 5-325 Mg Tab, 1 TAB PO Q6 Y for PAIN, # 20 TAB Prov:PHILIP DUFF FISHER HOOP NET 11/21/15 Hydrocodone Bit-Acetaminophen* ([place]*) 7.5-325 Tablet, 1 TAB PO Q4H Y for PAIN , #20 TAB Prov:CONNOR CUMMINS DO 08/19/15 Dicyclomine Hcl* (Bentyl*) 20 Mg Tablet, 20 MG PO QID, #30 TAB Prov:CONNOR CUMMINS DO 08/19/15 Ondansetron Hcl* (Zofran* ODT) 4 mg -ODT Tab.disper, 4 MG PO Q6 Y for NAUSEA AND /OR VOMITING, #10 TAB Prov:CONNOR CUMMINS DO 08/19/15 Procedures Procedures Laboratory Tests Test 09/10/16 15:00 09/10/16 15:12 Urine Color YELLOW Urine Clarity CLEAR Urine pH 5.5 Urine Specific [place] 1.025 Urine Ketones TRACE Urine Nitrite NEGATIVE Urine Bilirubin NEGATIVE Urine Urobilinogen 0.2 E.U./dL Urine Leukocyte Esterase NEGATIVE Urine Microscopic RBC NONE SEEN/HPF Urine Microscopic WBC NONE SEEN/HPF Urine Calcium Oxalate Crystals MODERATE Urine Bacteria FEW Urine Hemoglobin NEGATIVE Urine Glucose NEGATIVE% Urine Total Protein TRACE White Blood Count 15.010^3/ul Red Blood Count 3.8110^6/ul Hemoglobin 13.8g/dl Hematocrit 38.0% Mean Corpuscular Volume 99.7fl Mean Corpuscular Hemoglobin 36.2pg Mean Corpuscular Hemoglobin Concent 36.3g/dl Red Cell Distribution Width 15.0% Platelet Count 07005^3/UL Mean Platelet Volume 9.5fl Neutrophils % 83.8% Lymphocytes % 10.3% Monocytes % 4.9% Eosinophils % 0.2% Basophils % 0.3% Nucleated Red Blood Cells % 0.0/100WBC Neutrophils # 12.610^3/ul Lymphocytes # 1.610^3/ul Monocytes # 0.710^3/ul Eosinophils # 0.010^3/ul Basophils # 0.110^3/ul Nucleated Red Blood Cells # 0.010^3/ul Prothrombin Time 14.9Sec Prothrombin Time Ratio 1.2 INR International Normalized Ratio 1.16 Activated Partial Thromboplast Time 24.8Sec Sodium Level 135mmol/L Potassium Level 4.0mmol/L Chloride Level 97mmol/L Carbon Dioxide Level 25mmol/L Anion Gap 17 Blood Urea Nitrogen 14mg/dl Creatinine 1.09mg/dl Glucose Level 156mg/dl Lactic Acid Level 1.7mmol/L Calcium Level 9.8mg/dl Total Bilirubin 1.2mg/dl Direct Bilirubin 0.00mg/dl Indirect Bilirubin 1.2mg/dl Aspartate Amino Transf (AST/SGOT) 35IU/L Alanine Aminotransferase (ALT/SGPT) 42IU/L Alkaline Phosphatase 107IU/L Troponin I < 0.012ng/ml Total Protein 7.7g/dl Albumin 4.4g/dl Globulin 3.30g/dl Albumin/Globulin Ratio 1.33 Lipase 511U/L RADIOLOGY: PROCEDURE: US Abdomen. CLINICAL INDICATION: Evaluate for acute cholecystitis. COMPARISON: CT scan of the abdomen pelvis 09/10/2016. IMPRESSION: 1. Cholelithiasis without evidence of gallbladder wall thickening or pericholecystic fluid to suggest acute cholecystitis. 2. Normal common bile duct. 3. Multiple hepatic masses are identified. See CT scan abdomen pelvis performed the same day for details. The largest hepatic mass by ultrasound measures approximately 11.5 x 11 x 8 cm with internal blood flow noted within the mass Doppler imaging. 4. Echogenic liver consistent with fatty infiltration. PROCEDURE: XR Chest. CLINICAL INDICATION: Cough. Sepsis. TECHNIQUE: Single frontal view. COMPARISON: 07/23/2016. IMPRESSION: 1. Normal chest radiograph. 2. No change from 07/23/2016. PROCEDURE: CT scan of the abdomen and pelvis with and without IV contrast. CLINICAL INDICATION: History of common bile duct cancer on chemotherapy. COMPARISON: None IMPRESSION: 1. Hepatomegaly with multiple irregular enhancing hepatic masses, the largest resting in the left lobe of the liver measuring roughly 9.8 cm AP by 9.3 cm transverse by 9.3 cm in height which has increased in size when compared to 04/2016. This is accessible for hepatic biopsy if needed. Cholelithiasis developing since 08/19/2015. 2. Fatty infiltration of the liver with focal areas of fatty sparing. 3. Reflex ileus with fluid in the small bowel and colon. No evidence of a mechanical bowel obstruction. 4. 4 mm lesion to small to characterize in the medial lower portion of the upper third of the left kidney. Ultrasound recommended for characterization. This may be the result of a cyst. 5. Borderline splenomegaly. 6. Osteoarthritis of the thoracic and lumbosacral spine. No evidence of a bone metastasis. 7. New 9 mm periportal lymph node. CITLALIMAUDE HUTCHISON Sep 10, 2016 23:17 is not thickened. The extrahepatic common bile duct is normal. Pancreas: The pancreas is normal. Gastrointestinal: There is particulate matter in the stomach. There is no evidence of a hiatal hernia or gastric wall thickening. There is fluid in the small bowel loops which do not appear dilated and are not organized. There is fluid in the colon. There is no evidence of diverticulosis or diverticulitis. The vermiform appendix is not clearly visualized. There is some fecal material in the sigmoid colon and rectal ampulla. There is a small umbilical hernia which contains only fat. Kidneys and bladder : The kidneys and urinary bladder are normal. There is a 4 mm lesion to small to characterize in the medial aspect of the lower portion of the upper third of the left kidney and a can be further characterize with a renal sonogram. No other lesions are identified in the kidneys. There is no evidence of hydronephrosis. The urinary bladder is normal with no bladder wall thickening or bladder stone identified. Adrenal glands: Normal. Spleen: The spleen measures 12.94 cm in length which is borderline enlarged. Lymph nodes: There is a 9 mm periportal lymph node between the gallbladder and inferior vena cava. There is a 7 mm minimal transverse retroperitoneal lymph node ventral to the proximal third portion of the duodenum. No enlarged pelvic sidewall or inguinal lymph nodes are identified. Reproductive system: The prostate gland is normal in size and contain small calcifications. The seminal vesicles are normal. No free fluid is noted in the pelvis. Bony elements: There are degenerative osteophytes in the thoracic and lumbar spine without evidence of spondylolysis or spondylolisthesis. There is disk space narrowing at L4-5 with a 4.7 mm AP dorsal central and paracentral disk osteophyte complex noted. No central canal stenosis is present. Vasculature: Normal. IMPRESSION: 1. Hepatomegaly with multiple irregular enhancing hepatic masses, the largest resting in the left lobe of the liver measuring roughly 9.8 cm AP by 9.3 cm transverse by 9.3 cm in height which has increased in size when compared to 04/2016. This is accessible for hepatic biopsy if needed. Cholelithiasis developing since 08/19/2015. 2. Fatty infiltration of the liver with focal areas of fatty sparing. 3. Reflex ileus with fluid in the small bowel and colon. No evidence of a mechanical bowel obstruction. 4. 4 mm lesion to small to characterize in the medial lower portion of the upper third of the left kidney. Ultrasound recommended for characterization. This may be the result of a cyst. 5. Borderline splenomegaly. 6. Osteoarthritis of the thoracic and lumbosacral spine. No evidence of a bone metastasis. 7. New 9 mm periportal lymph node. MAUDE GODWIN DO Sep 10, 2016 23:17 Gastrointestinal: There is particulate matter in the stomach. There is no evidence of a hiatal hernia or gastric wall thickening. There is fluid in the small bowel loops which do not appear dilated and are not organized. There is fluid in the colon. There is no evidence of diverticulosis or diverticulitis. The vermiform appendix is not clearly visualized. There is some fecal material in the sigmoid colon and rectal ampulla. There is a small umbilical hernia which contains only fat. Kidneys and bladder : The kidneys and urinary bladder are normal. There is a 4 mm lesion to small to characterize in the medial aspect of the lower portion of the upper third of the left kidney and a can be further characterize with a renal sonogram. No other lesions are identified in the kidneys. There is no evidence of hydronephrosis. The urinary bladder is normal with no bladder wall thickening or bladder stone identified. Adrenal glands: Normal. Spleen: The spleen measures 12.94 cm in length which is borderline enlarged. Lymph nodes: There is a 9 mm periportal lymph node between the gallbladder and inferior vena cava. There is a 7 mm minimal transverse retroperitoneal lymph node ventral to the proximal third portion of the duodenum. No enlarged pelvic sidewall or inguinal lymph nodes are identified. Reproductive system: The prostate gland is normal in size and contain small calcifications. The seminal vesicles are normal. No free fluid is noted in the pelvis. Bony elements: There are degenerative osteophytes in the thoracic and lumbar spine without evidence of spondylolysis or spondylolisthesis. There is disk space narrowing at L4-5 with a 4.7 mm AP dorsal central and paracentral disk osteophyte complex noted. No central canal stenosis is present. Vasculature: Normal. IMPRESSION: 1. Hepatomegaly with multiple irregular enhancing hepatic masses, the largest resting in the left lobe of the liver measuring roughly 9.8 cm AP by 9.3 cm transverse by 9.3 cm in height which has increased in size when compared to 04/2016. This is accessible for hepatic biopsy if needed. Cholelithiasis developing since 08/19/2015. 2. Fatty infiltration of the liver with focal areas of fatty sparing. 3. Reflex ileus with fluid in the small bowel and colon. No evidence of a mechanical bowel obstruction. 4. 4 mm lesion to small to characterize in the medial lower portion of the upper third of the left kidney. Ultrasound recommended for characterization. This may be the result of a cyst. 5. Borderline splenomegaly. 6. Osteoarthritis of the thoracic and lumbosacral spine. No evidence of a bone metastasis. 7. New 9 mm periportal lymph node. RPTAT:AAJJ Physician Manjinder Date Time Electronically viewed and signed by Physician Manjinder on 09/10/2016 17:52 JM/ CC: HANK LUNA MD MEDICAL MAKING DECISION: The patient is a 51-year-old male, presenting with acute biliary colic, suspected gallstone pancreatitis. He was treated with dilated Dilaudid 1 mg IV 2 for pain and Zofran 4 mg IV 1 for nausea and normal saline 30 mL/kg IV for acute clinical dehydration and Zosyn IV empirically with good response. The differential diagnoses considered include but are not limited to cholelithiasis, cholecystitis, cystitis, pancreatitis, hepatitis, gastritis, peptic ulcer disease, gastric ulcer, appendicitis, diverticulitis, cholangitis, choledocholithiasis, partial small bowel obstruction. Consultation: I discussed the patient with the on-call general surgeon Dr. Martinez at 1815 hrs., who was made aware of the lab, the treatment, the patient condition; he accepted the consult I discussed the patient with his physician Dr. Perez at 1820 hrs. he recommended admit the patient to panel Departure Diagnosis: Primary Impression: Biliary colic Additional Impressions: Gallstone pancreatitis Anemia Condition: Stable Comments I discussed the findings with the patient. I discussed the patient with the on- call hospitalist who was made aware of the lab, the treatment, the patient condition and the pending ultrasound. The patient is admitted to medical surgery bed as 1846 hrs. PMH/Family/Social Social History Smoking Status: Never smoker Exam/Review of Systems Vital Signs Vitals Vital Signs Date Time Temp Pulse Resp B/P Pulse Ox O2 Delivery O2 Flow Rate FiO2 09/10/16 21:45 97.5 91 18 136/90 100 09/10/16 20:56 Room Air Labs Result Diagram: 09/10/16 1512 09/10/16 1512 MAUDE GODWIN DO Sep 10, 2016 23:17
[2016-09-10 23:30] VITALS: Ht 160 cm; Wt 89.2 kg
[2016-09-10] MEDS: CAPECITABINE 500 MG TAB PO SCH (23:30)
[2016-09-10] MEDS ORDERED: ONDANSETRON 4 MG TAB PO PRN (23:30)
[2016-09-10] MEDS ORDERED: ACETAMINOPHEN 325 MG TAB PO PRN (23:30)
[2016-09-10] MEDS ORDERED: NACL 0.9% 3 ML SYG IV SCH (23:30)
[2016-09-10] MEDS ORDERED: ONDANSETRON 4 MG INJ IV PRN (23:30)
[2016-09-11] MEDS: SOD CHLORIDE 0.9% 1,000 ML IV SCH ×4 (00:12→22:36)
[2016-09-11] MEDS: HYDROmorphONE 1 MG/ML SYG IV PRN ×7 (00:12→22:36)
--- NOTE | 2016-09-11 05:37 | CONS ---
DATE OF ADMISSION: 09/10/2016 DATE OF CONSULTATION: 09/11/2016 SURGICAL CONSULTATION REASON FOR CONSULTATION: Possible biliary colic, possible cholecystitis. HISTORY OF PRESENT ILLNESS: The patient is a rather unfortunate 51-year-old gentleman who has a kno wn diagnosis of hepatocellular carcinoma and has some very large liver masses noted on CT. He prese nts with a 3-day history of right upper quadrant abdominal pain. Abdominal ultrasound showed some g allstones but without gallbladder wall thickening or pericholecystic fluid. More importantly, the C T scan showed multiple irregular enhancing hepatic masses. The left lobe measured 9.8 cm which has increased in size compared to 08/18/2016. There is also a reflex ileus noted in the small bowel and colon. The patient was admitted, and surgical consultation was requested in that regard. PAST MEDICAL HISTORY: The patient's only hospitalizations other than for the above were for history of pancreatitis. REVIEW OF SYSTEMS: HEAD, EARS, EYES, NOSE, AND THROAT: Unremarkable. PULMONARY: No history of pneumonia or shortness of breath. CARDIAC: No history of chest pain, MA, or arrhythmia. ABDOMEN: As in the HPI. GENITOURINARY: Unremarkable. OUTPATIENT MEDICATIONS: Outlined in the chart. ALLERGIES: 1. IBUPROFEN 2. MORPHINE. PHYSICAL EXAMINATION: GENERAL: The patient is a borderline morbidly obese 51-year-old male who is awake and alert, in no acute distress. HEAD, EARS, EYES, NOSE, THROAT: Within normal limits. LUNGS: Clear. HEART: Regular rhythm. ABDOMEN: Obese. There is a nonspecific fullness in the right upper quadrant which is nontender. EXTREMITIES: Unremarkable. LABORATORY DATA: The patient's hematocrit is 38 with a white count of 15,000. BUN, glucose, electr olytes show a bilirubin of 1.2 with an alkaline phosphatase of 107. Lipase is 511. IMPRESSION: 1. Hepatocellular carcinoma. 2. Low grade biliary pancreatitis. PLAN: The patient will be treated for this condition medically. GI consultation should be sought. Certainly, the patient's underlying hepatocellular carcinoma is of much greater concern than gallst ones in the gallbladder which is not noted to be thickened or inflamed. Further recommendations dima l be forthcoming based on the patient's further workup and clinical course. I will follow with you. Dictated By: JOSE BUITRAGO/MARIELLA Conf#: [id number] DID#: [id number] CC: MASSIEL ROSS MD;*EndCC*
[2016-09-11 07:20] LABS: ADD SCAN DIFF NO
[2016-09-11 07:31] LABS: BASOPHILS % 0.5 % (0.0-2.0); EOSINOPHILS # 0.2 10^3/ul (0.0-0.5); EOSINOPHILS % 1.9 % (0.0-7.0); HEMATOCRIT 35.6 % (42.0-52.0); HEMOGLOBIN 12.3 g/dl (14.0-18.0); LYMPHOCYTES # 2.6 10^3/ul (0.8-2.9); LYMPHOCYTES % 29.2 % (15.0-51.0); MEAN CORPUSCULAR HGB CONC 34.6 g/dl (32.0-37.0); MEAN CORPUSCULAR VOLUME 101.4 fl (82.0-101.0); MEAN PLATELET VOLUME 9.5 fl (7.4-10.4); MONOCYTE # 0.9 10^3/ul (0.3-0.9); MONOCYTES % 10.1 % (0.0-11.0); NEUTROPHIL # 5.1 10^3/ul (1.6-7.5); PLATELET COUNT 278 10^3/UL (140-415); RED BLOOD COUNT 3.51 10^6/ul (4.70-6.10); RED CELL DISTRIBUTION WIDTH 15.4 % (11.5-14.5); WHITE BLOOD COUNT 8.8 10^3/ul (4.8-10.8)
[2016-09-11 07:41] VITALS: BP 120/71; RESP 18
[2016-09-11 07:48] LABS: ALBUMIN 3.3 g/dl (3.3-4.9)
[2016-09-11 07:51] LABS: BILIRUBIN,INDIRECT 1.9 mg/dl (0-1.1); BILIRUBIN,TOTAL 1.9 mg/dl (0.2-1.3); CREATININE 1.01 mg/dl (0.61-1.24)
[2016-09-11 07:52] LABS: ALBUMIN/GLOBULIN RATIO 1.17; CALCIUM 8.7 mg/dl (8.4-10.2); TOTAL PROTEIN 6.1 g/dl (6.1-8.1)
[2016-09-11] MEDS: CAPECITABINE 500 MG TAB PO SCH ×2 (09:00→21:00)
[2016-09-11] MEDS ORDERED: CEFAZOLIN 1 GM INJ IM SCH (09:00)
[2016-09-11] MEDS: ENOXAPARIN 40 MG/0.4 ML SYG SC SCH (09:51)
--- NOTE | 2016-09-11 10:33 | CONS ---
Date/Time of Note Date/Time of Note DATE: 09/11/16 TIME: 10:33 Assessment/Plan Assessment/Plan Chief Complaint/Hosp Course - Hepatocellular carcinoma. treated with Xeloda. chemo - on hold - Gallstone pancreatitis, Symptomatic biliary colic with cholelithiasis Dr. Ferreira is asked to see patient in gastroenterology consultation. LEUKOCYTOSIS- REACTIVE MONITOR ANEMIA- COMPLEX MONITOR Problems: Consultation Date/Type/Reason Admit Date/Time Sep 10, 2016 at 19:45 Initial Consult Date 24 HR Interval Summary Free Text/Dictation ABD PAIN + N/-V XELODA ON HOLD Exam/Review of Systems Vital Signs Vitals Vital Signs Date Time Temp Pulse Resp B/P Pulse Ox O2 Delivery O2 Flow Rate FiO2 09/11/16 07:41 98.0 88 18 120/71 100 09/10/16 20:56 Room Air Intake and Output 09/10/16 09/10/16 09/11/16 15:00 23:00 07:00 Intake Total 2700 ml 625 ml Balance 2700 ml 625 ml Exam Constitutional: alert, oriented Psych: no complaints Head: atraumatic, normocephalic Eyes: nl conjunctiva ENMT: nl external ears & nose Neck: non-tender, supple Respiratory: clear to auscultation, normal air movement Cardiovascular: nl pulses, regular rate and rhythm Gastrointestinal: other (Right upper quadrant tenderness), soft Musculoskeletal: nl extremities to inspection Extremities: normal pulses Neurological: MANAGER SECURITY II-XII intact Results Result Diagram: 09/11/16 0532 09/11/16 0532 Results 24 hrs Laboratory Tests Test 09/10/16 15:00 09/10/16 15:12 09/10/16 18:55 09/10/16 20:55 Urine Color YELLOW Urine Clarity CLEAR Urine pH 5.5 Urine Specific [place] 1.025 Urine Ketones TRACE Urine Nitrite NEGATIVE Urine Bilirubin NEGATIVE Urine Urobilinogen 0.2 E.U./dL Urine Leukocyte Esterase NEGATIVE Urine Microscopic RBC NONE SEEN Urine Microscopic WBC NONE SEEN Urine Calcium Oxalate Crystals MODERATE Urine Bacteria FEW Urine Hemoglobin NEGATIVE Urine Glucose NEGATIVE Urine Total Protein TRACE White Blood Count 15.0 #H Red Blood Count 3.81 L Hemoglobin 13.8 L Hematocrit 38.0 L Mean Corpuscular Volume 99.7 Mean Corpuscular Hemoglobin 36.2 H Mean Corpuscular Hemoglobin Concent 36.3 Red Cell Distribution Width 15.0 #H Platelet Count 268 Mean Platelet Volume 9.5 # Neutrophils % 83.8 H Lymphocytes % 10.3 L Monocytes % 4.9 Eosinophils % 0.2 Basophils % 0.3 Nucleated Red Blood Cells % 0.0 Neutrophils # 12.6 H Lymphocytes # 1.6 Monocytes # 0.7 Eosinophils # 0.0 Basophils # 0.1 Nucleated Red Blood Cells # 0.0 Prothrombin Time 14.9 H Prothrombin Time Ratio 1.2 INR International Normalized Ratio 1.16 Activated Partial Thromboplast Time 24.8 L Sodium Level 135 Potassium Level 4.0 Chloride Level 97 Carbon Dioxide Level 25 Anion Gap 17 H Blood Urea Nitrogen 14 Creatinine 1.09 Glucose Level 156 Lactic Acid Level 1.7 1.6 1.9 Calcium Level 9.8 Total Bilirubin 1.2 Direct Bilirubin 0.00 Indirect Bilirubin 1.2 H Aspartate Amino Transf (AST/SGOT) 35 Alanine Aminotransferase (ALT/SGPT) 42 Alkaline Phosphatase 107 Troponin I < 0.012 Total Protein 7.7 Albumin 4.4 Globulin 3.30 H Albumin/Globulin Ratio 1.33 Lipase 511 H Test 09/11/16 05:32 White Blood Count 8.8 # Red Blood Count 3.51 L Hemoglobin 12.3 L Hematocrit 35.6 L Mean Corpuscular Volume 101.4 H Mean Corpuscular Hemoglobin 35.0 H Mean Corpuscular Hemoglobin Concent 34.6 Red Cell Distribution Width 15.4 H Platelet Count 278 Mean Platelet Volume 9.5 Neutrophils % 58.0 Lymphocytes % 29.2 Monocytes % 10.1 Eosinophils % 1.9 Basophils % 0.5 Nucleated Red Blood Cells % 0.0 Neutrophils # 5.1 Lymphocytes # 2.6 Monocytes # 0.9 Eosinophils # 0.2 Basophils # 0.0 Nucleated Red Blood Cells # 0.0 Sodium Level 134 L Potassium Level 4.0 Chloride Level 101 Carbon Dioxide Level 25 Anion Gap 12 Blood Urea Nitrogen 15 Creatinine 1.01 Glucose Level 110 # Calcium Level 8.7 Total Bilirubin 1.9 H Direct Bilirubin 0.00 Indirect Bilirubin 1.9 H Aspartate Amino Transf (AST/SGOT) 39 Alanine Aminotransferase (ALT/SGPT) 42 Alkaline Phosphatase 87 Total Protein 6.1 # Albumin 3.3 # Globulin 2.80 Albumin/Globulin Ratio 1.17 Alpha Fetoprotein 5.29 Medications Medications Current Medications Capecitabine 2000 mg 2,000 mg BID PO ; Start 09/10/16 at 23:30 Sodium Chloride (NS) 1,000 ml @ 125 mls/hr Q8H IV Last administered on 10:06; Admin Dose 125 MLS/HR; Start 09/10/16 at 23:17 Ondansetron HCl (Zofran Tab) 4 mg Q6H PRN PO NAUSEA AND/OR VOMITING; Start 09/10 at 23:30 Ondansetron HCl (Zofran Inj) 4 mg Q6H PRN IV NAUSEA AND/OR VOMITING; Start 09/10 at 23:30 Acetaminophen (Tylenol Tab) 650 mg Q6H PRN PO PAIN LEVEL 1-3 OR FEVER; Start at 23:30 Enoxaparin Sodium (Lovenox) 40 mg DAILY SC Last administered on 09/11/16 09:51 ; Admin Dose 40 MG; Start 09/11/16 at 09:00 Hydromorphone HCl 1 mg 1 mg Q2 PRN IV SEVERE PAIN LEVEL 7-10 Last administered on 09/11/16 09:53; Admin Dose 1 MG; Start 09/11/16 at 09:00 Cefazolin Sodium (Ancef 1 Gm/50 ml (Pmx)) 50 ml @ 100 mls/hr Q8 IVPB ; Start at 09:31 ETHEL JAMIL MD Sep 11, 2016 10:33
[2016-09-11] MEDS: CEFAZOLIN 1 GM/50 ML (PMX) 50 ML IVPB SCH ×3 (12:40→21:41)
--- NOTE | 2016-09-11 17:13 | PN ---
Date/Time of Note Date/Time of Note DATE: 09/11/16 TIME: 17:11 Assessment/Plan VTE Prophylaxis VTE Prophylaxis Intervention: SCD's Lines/Catheters IV [facility]from [facility]): Peripheral IV Assessment/Plan Chief Complaint/Hosp Course Assessment and plan: 1. Hepatocellular carcinoma. 2. Low grade biliary pancreatitis. Dr. Ferreira is asked to see patient in gastroenterology consultation. Dr. Martinez is following in general surgery consultation. Further recommendations based on clinical course. Plan of care discussed with Dr. Banks. Problems: Subjective 24 Hr Interval Summary Free Text/Dictation Patient tolerates clear liquid diet well, denies pain. Exam/Review of Systems Vital Signs Vitals Vital Signs Date Time Temp Pulse Resp B/P Pulse Ox O2 Delivery O2 Flow Rate FiO2 09/11/16 07:41 98.0 88 18 120/71 100 09/10/16 20:56 Room Air Intake and Output 09/10/16 09/10/16 09/11/16 15:00 23:00 07:00 Intake Total 2700 ml 625 ml Balance 2700 ml 625 ml Exam Constitutional: alert, oriented Psych: no complaints Head: atraumatic, normocephalic Eyes: nl conjunctiva ENMT: nl external ears & nose Neck: non-tender, supple Respiratory: clear to auscultation, normal air movement Cardiovascular: nl pulses, regular rate and rhythm Gastrointestinal: other (Right upper quadrant tenderness), soft Musculoskeletal: nl extremities to inspection Extremities: normal pulses Neurological: SOLID PLASTERER II-XII intact Results Result Diagram: 09/11/16 0532 09/11/16 0532 Results 24 hrs Laboratory Tests Test 09/10/16 18:55 09/10/16 20:55 09/11/16 05:32 Lactic Acid Level 1.6 1.9 White Blood Count 8.8 # Red Blood Count 3.51 L Hemoglobin 12.3 L Hematocrit 35.6 L Mean Corpuscular Volume 101.4 H Mean Corpuscular Hemoglobin 35.0 H Mean Corpuscular Hemoglobin Concent 34.6 Red Cell Distribution Width 15.4 H Platelet Count 278 Mean Platelet Volume 9.5 Neutrophils % 58.0 Lymphocytes % 29.2 Monocytes % 10.1 Eosinophils % 1.9 Basophils % 0.5 Nucleated Red Blood Cells % 0.0 Neutrophils # 5.1 Lymphocytes # 2.6 Monocytes # 0.9 Eosinophils # 0.2 Basophils # 0.0 Nucleated Red Blood Cells # 0.0 Sodium Level 134 L Potassium Level 4.0 Chloride Level 101 Carbon Dioxide Level 25 Anion Gap 12 Blood Urea Nitrogen 15 Creatinine 1.01 Glucose Level 110 # Calcium Level 8.7 Total Bilirubin 1.9 H Direct Bilirubin 0.00 Indirect Bilirubin 1.9 H Aspartate Amino Transf (AST/SGOT) 39 Alanine Aminotransferase (ALT/SGPT) 42 Alkaline Phosphatase 87 Total Protein 6.1 # Albumin 3.3 # Globulin 2.80 Albumin/Globulin Ratio 1.17 Alpha Fetoprotein 5.29 Medications Medications Current Medications Capecitabine 2000 mg 2,000 mg BID PO ; Start 09/10/16 at 23:30 Sodium Chloride (NS) 1,000 ml @ 125 mls/hr Q8H IV Last administered on 10:06; Admin Dose 125 MLS/HR; Start 09/10/16 at 23:17 Ondansetron HCl (Zofran Tab) 4 mg Q6H PRN PO NAUSEA AND/OR VOMITING; Start 09/10 at 23:30 Ondansetron HCl (Zofran Inj) 4 mg Q6H PRN IV NAUSEA AND/OR VOMITING; Start 09/10 at 23:30 Acetaminophen (Tylenol Tab) 650 mg Q6H PRN PO PAIN LEVEL 1-3 OR FEVER; Start at 23:30 Enoxaparin Sodium (Lovenox) 40 mg DAILY SC Last administered on 09/11/16 09:51 ; Admin Dose 40 MG; Start 09/11/16 at 09:00 Hydromorphone HCl 1 mg 1 mg Q2 PRN IV SEVERE PAIN LEVEL 7-10 Last administered on 09/11/16 15:01; Admin Dose 1 MG; Start 09/11/16 at 09:00 Cefazolin Sodium (Ancef 1 Gm/50 ml (Pmx)) 50 ml @ 100 mls/hr Q8 IVPB Last administered on 09/11/16 12:40; Admin Dose 100 MLS/HR; Start 09/11/16 at 09:31 ANDREI PIEDRA Sep 11, 2016 17:13
--- NOTE | 2016-09-11 20:30 | CONS ---
DATE OF ADMISSION: 09/10/2016 DATE OF CONSULTATION: TYPE OF CONSULTATION: Gastroenterology. Dear ____: Thank you for asking me to see Nova Sanchez in GI consultation. HISTORY OF PRESENT ILLNESS: The patient, as you know, is a 51-year-old [place] gentleman at this [facility] admitted to the hospital with right upper quadrant pain going on for the past couple of weeks, n ow associated with nausea and vomiting. No history of hematemesis, rectal bleeding, or GI bleeding of any other kind. No history of other GI problems at this time. The ultrasound and CAT scan of e abdomen showed evidence of gallstones and there is evidence of elevated lipase of 511. The liver panel also showed evidence of total bilirubin of 1.9, AST 39, ALT 42, alkaline phosphatase is 87. Alpha fetoprotein 5.29. The patient has been on chemotherapy for hepatoma for the past 2 y ears. He takes Xeloda 3 tablets in the morning, 3 tablets in the evening. SOCIAL HISTORY: The patient does not smoke or drink. Occasionally, he drinks alcohol on a Dazo asis. PHYSICAL EXAMINATION: GENERAL: The patient is a 51-year-old [place] gentleman who at this time is alert, well built. VITAL SIGNS: Afebrile. CARDIOVASCULAR: Normal heart sounds. RESPIRATORY: Normal breath sounds. ABDOMEN: Showed unremarkable findings. LABORATORY WORKUP: Essentially as mentioned above. WBC count is 8800, hemoglobin 12.3. The ultras ound showed gallstones and multiple liver masses. CAT scan of the abdomen showed multiple liver mas ses. CLINICAL IMPRESSION: The patient presenting with history of abdominal pain, what appears to be seco ndary to gallstone pancreatitis, rule out choledocholithiasis. PLAN: Recommend MRCP at this time. If necessary, ERCP may be considered. Once again, doctor, thank you for this consultation. Dictated By: ANN SCHNEIDER/MARIELLA Conf#: [id number] DID#: [id number] CC: ANN JADE MD; CORY CABRERA MD;*EndCC*
[2016-09-11 21:15] VITALS: BP 149/85; RESP 17
[2016-09-12] MEDS: CEFAZOLIN 1 GM/50 ML (PMX) 50 ML IVPB SCH ×3 (04:33→21:02)
[2016-09-12] MEDS: HYDROmorphONE 1 MG/ML SYG IV PRN ×4 (04:33→21:08)
[2016-09-12 05:19] LABS: ADD SCAN DIFF NO
[2016-09-12 05:23] LABS: BASOPHILS % 0.4 % (0.0-2.0); EOSINOPHILS # 0.2 10^3/ul (0.0-0.5); EOSINOPHILS % 2.9 % (0.0-7.0); HEMATOCRIT 33.5 % (42.0-52.0); HEMOGLOBIN 11.3 g/dl (14.0-18.0); LYMPHOCYTES # 2.2 10^3/ul (0.8-2.9); LYMPHOCYTES % 30.2 % (15.0-51.0); MEAN CORPUSCULAR HEMOGLOBIN 33.6 pg (29.0-33.0); MEAN CORPUSCULAR HGB CONC 33.7 g/dl (32.0-37.0); MEAN CORPUSCULAR VOLUME 99.7 fl (82.0-101.0); MEAN PLATELET VOLUME 9.3 fl (7.4-10.4); MONOCYTE # 0.7 10^3/ul (0.3-0.9); MONOCYTES % 9.4 % (0.0-11.0); NEUTROPHIL # 4.1 10^3/ul (1.6-7.5); PLATELET COUNT 229 10^3/UL (140-415); RED BLOOD COUNT 3.36 10^6/ul (4.70-6.10); RED CELL DISTRIBUTION WIDTH 15.1 % (11.5-14.5); WHITE BLOOD COUNT 7.3 10^3/ul (4.8-10.8)
[2016-09-12 06:18] LABS: POTASSIUM 3.6 mmol/L (3.5-5.1)
[2016-09-12 06:21] LABS: CALCIUM 8.5 mg/dl (8.4-10.2)
[2016-09-12] MEDS: SOD CHLORIDE 0.9% 1,000 ML IV SCH ×2 (07:51→18:25)
[2016-09-12 08:05] VITALS: BP 126/74; RESP 18
[2016-09-12] MEDS: ENOXAPARIN 40 MG/0.4 ML SYG SC SCH (08:59)
[2016-09-12] MEDS: CAPECITABINE 500 MG TAB PO SCH ×2 (09:00→21:00)
--- NOTE | 2016-09-12 11:26 | RADRPT ---
PROCEDURE: MRCP without contrast. CLINICAL INDICATION: Right upper quadrant abdominal pain. TECHNIQUE: Routine MRCP was obtained without the administration of intravenous contrast. COMPARISON: CT, 09/10/2016. FINDINGS: There are multiple gallstones without gallbladder wall thickening or inflammation. No intra- or ext ra-hepatic biliary dilatation is identified. There is no filling defect or choledocholithiasis. Th ere is no biliary stricture. The pancreatic duct is within normal limits. Large multi septated cystic mass occupying the left lobe of the liver measuring up to 10.5 cm that i s incompletely characterized on this examination. There are additional scattered cystic foci in the bilateral lobes of the liver. IMPRESSION: Cholelithiasis without gallbladder wall thickening/inflammation, biliary dilatation, or choledocholi thiasis. The patient's known liver lesions are poorly characterized with the current protocol but appears sujey ssly unchanged in comparison to the prior CT performed 2 days prior. RPTAT: EE .Jose David Narvaez MD, MD Date Time Electronically viewed and signed by .Jose David Narvaez MD, on 09/12/2016 11:30 .C/
--- NOTE | 2016-09-12 12:36 | PN ---
Date/Time of Note Date/Time of Note DATE: 09/12/16 TIME: 12:30 Assessment/Plan VTE Prophylaxis VTE Prophylaxis Intervention: SCD's Lines/Catheters IV [facility] ([facility] Peripheral IV Urinary Cath still in place: No Assessment/Plan Chief Complaint/Hosp Course Assessment and plan: - Gallstone pancreatitis. Dr. Ferreira is asked to see patient in gastroenterology consultation. Dr. Martinez is following in general surgery consultation. - Hepatocellular carcinoma. Patient currently on Xeloda. Further recommendations based on clinical course. Plan of care discussed with Dr. Banks. Problems: Subjective 24 Hr Interval Summary Free Text/Dictation Patient is currently went for MRI, tolerates liquid diet per RN, no acute events reported prior to procedure. Exam/Review of Systems Vital Signs Vitals Vital Signs Date Time Temp Pulse Resp B/P Pulse Ox O2 Delivery O2 Flow Rate FiO2 09/12/16 08:05 98.8 80 18 126/74 96 09/10/16 20:56 Room Air Intake and Output 09/11/16 09/11/16 09/12/16 15:00 23:00 07:00 Intake Total 675 ml 1410 ml 925 ml Balance 675 ml 1410 ml 925 ml Results Result Diagram: 09/12/16 0500 09/12/16 0500 Results 24 hrs Laboratory Tests Test 09/12/16 05:00 White Blood Count 7.3 Red Blood Count 3.36 L Hemoglobin 11.3 L Hematocrit 33.5 L Mean Corpuscular Volume 99.7 Mean Corpuscular Hemoglobin 33.6 H Mean Corpuscular Hemoglobin Concent 33.7 Red Cell Distribution Width 15.1 H Platelet Count 229 Mean Platelet Volume 9.3 Neutrophils % 57.0 Lymphocytes % 30.2 Monocytes % 9.4 Eosinophils % 2.9 Basophils % 0.4 Nucleated Red Blood Cells % 0.0 Neutrophils # 4.1 Lymphocytes # 2.2 Monocytes # 0.7 Eosinophils # 0.2 Basophils # 0.0 Nucleated Red Blood Cells # 0.0 Sodium Level 132 L Potassium Level 3.6 Chloride Level 99 Carbon Dioxide Level 22 Anion Gap 15 Blood Urea Nitrogen 12 Creatinine 1.00 Glucose Level 100 Calcium Level 8.5 Medications Medications Current Medications Capecitabine 2000 mg 2,000 mg BID PO ; Start 09/10/16 at 23:30 Sodium Chloride (NS) 1,000 ml @ 125 mls/hr Q8H IV Last administered on 07:51; Admin Dose 125 MLS/HR; Start 09/10/16 at 23:17 Ondansetron HCl (Zofran Tab) 4 mg Q6H PRN PO NAUSEA AND/OR VOMITING; Start 09/10 at 23:30 Ondansetron HCl (Zofran Inj) 4 mg Q6H PRN IV NAUSEA AND/OR VOMITING; Start 09/10 at 23:30 Acetaminophen (Tylenol Tab) 650 mg Q6H PRN PO PAIN LEVEL 1-3 OR FEVER; Start at 23:30 Enoxaparin Sodium (Lovenox) 40 mg DAILY SC Last administered on 09/12/16 08:59 ; Admin Dose 40 MG; Start 09/11/16 at 09:00 Hydromorphone HCl 1 mg 1 mg Q2 PRN IV SEVERE PAIN LEVEL 7-10 Last administered on 09/12/16 08:58; Admin Dose 1 MG; Start 09/11/16 at 09:00 Cefazolin Sodium (Ancef 1 Gm/50 ml (Pmx)) 50 ml @ 100 mls/hr Q8 IVPB Last administered on 09/12/16 04:33; Admin Dose 100 MLS/HR; Start 09/11/16 at 09:31 ANDREI PIEDRA Sep 12, 2016 12:36
--- NOTE | 2016-09-12 14:11 | PN ---
DATE: At this time, the patient has no specific complaints, no abdominal pain. Physical exam, patient daisy ears alert, well built, afebrile. MRCP was done which showed evidence of normal common bile duct. There is evidence of choledocholithiasis, but gallstones were noted. CLINICAL IMPRESSION: The patient has a mild gallstone pancreatitis. This seems to have been resolv ed at this time. He still has cholelithiasis. PLAN: Recommend plan as per the surgeon. Meanwhile, continue present management. Dictated By: ANN JADE MD NC/NTS Conf#: [id number] DID#: [id number] CC: ANN JADE MD;*EndCC*
--- NOTE | 2016-09-12 14:41 | CONS ---
Date/Time of Note Date/Time of Note DATE: 09/12/16 TIME: 14:41 Assessment/Plan Assessment/Plan Chief Complaint/Hosp Course - Hepatocellular carcinoma. treated with Xeloda. chemo - on hold - Gallstone pancreatitis, Symptomatic biliary colic with cholelithiasis Dr. Ferreira is asked to see patient in gastroenterology consultation. SURG EVAL HIDA SCAN LEUKOCYTOSIS- REACTIVE MONITOR ANEMIA- COMPLEX MONITOR Problems: Consultation Date/Type/Reason Admit Date/Time Sep 10, 2016 at 19:45 24 HR Interval Summary Free Text/Dictation + ABD PAIN NO N/V NO FEVER XELODA ON HOLD SEEN BY GI W-UP IN PROGRESS Exam/Review of Systems Vital Signs Vitals Vital Signs Date Time Temp Pulse Resp B/P Pulse Ox O2 Delivery O2 Flow Rate FiO2 09/12/16 08:05 98.8 80 18 126/74 96 09/10/16 20:56 Room Air Intake and Output 09/11/16 09/11/16 09/12/16 15:00 23:00 07:00 Intake Total 675 ml 1410 ml 925 ml Balance 675 ml 1410 ml 925 ml Exam GENERAL: The patient is a 51-year-old [place] gentleman who at this time is alert, well built. VITAL SIGNS: Afebrile. CARDIOVASCULAR: Normal heart sounds. RESPIRATORY: Normal breath sounds. ABDOMEN: Showed unremarkable findings. Results Result Diagram: 09/12/16 0500 09/12/16 0500 Results 24 hrs Laboratory Tests Test 09/12/16 05:00 White Blood Count 7.3 Red Blood Count 3.36 L Hemoglobin 11.3 L Hematocrit 33.5 L Mean Corpuscular Volume 99.7 Mean Corpuscular Hemoglobin 33.6 H Mean Corpuscular Hemoglobin Concent 33.7 Red Cell Distribution Width 15.1 H Platelet Count 229 Mean Platelet Volume 9.3 Neutrophils % 57.0 Lymphocytes % 30.2 Monocytes % 9.4 Eosinophils % 2.9 Basophils % 0.4 Nucleated Red Blood Cells % 0.0 Neutrophils # 4.1 Lymphocytes # 2.2 Monocytes # 0.7 Eosinophils # 0.2 Basophils # 0.0 Nucleated Red Blood Cells # 0.0 Sodium Level 132 L Potassium Level 3.6 Chloride Level 99 Carbon Dioxide Level 22 Anion Gap 15 Blood Urea Nitrogen 12 Creatinine 1.00 Glucose Level 100 Calcium Level 8.5 Medications Medications Current Medications Capecitabine 2000 mg 2,000 mg BID PO ; Start 09/10/16 at 23:30 Sodium Chloride (NS) 1,000 ml @ 125 mls/hr Q8H IV Last administered on 07:51; Admin Dose 125 MLS/HR; Start 09/10/16 at 23:17 Ondansetron HCl (Zofran Tab) 4 mg Q6H PRN PO NAUSEA AND/OR VOMITING; Start 09/10 at 23:30 Ondansetron HCl (Zofran Inj) 4 mg Q6H PRN IV NAUSEA AND/OR VOMITING; Start 09/10 at 23:30 Acetaminophen (Tylenol Tab) 650 mg Q6H PRN PO PAIN LEVEL 1-3 OR FEVER; Start at 23:30 Enoxaparin Sodium (Lovenox) 40 mg DAILY SC Last administered on 09/12/16 08:59 ; Admin Dose 40 MG; Start 09/11/16 at 09:00 Hydromorphone HCl 1 mg 1 mg Q2 PRN IV SEVERE PAIN LEVEL 7-10 Last administered on 09/12/16 08:58; Admin Dose 1 MG; Start 09/11/16 at 09:00 Cefazolin Sodium (Ancef 1 Gm/50 ml (Pmx)) 50 ml @ 100 mls/hr Q8 IVPB Last administered on 09/12/16 14:11; Admin Dose 100 MLS/HR; Start 09/11/16 at 09:31 ETHEL JAMIL MD Sep 12, 2016 14:41
--- NOTE | 2016-09-12 18:30 | PN ---
DATE: 09/12/2016 SUBJECTIVE: The patient's pain scale has improved. The patient continues to be convinced that his s ymptoms are from his gallstones, and was told that his gallbladder needs to come out. I have review ed the chart, there was no one that has told this at all. My contention is that the patient has an enlarging liver carcinoma. His imaging did not show any evidence of gallbladder inflammation or per icholecystic fluid. ASSESSMENT AND PLAN: Right upper quadrant pain secondary to hepatocellular carcinoma. I do not rec ommend a cholecystectomy for this patient. The patient insists on having a cholecystectomy and I diaz ve told the patient that I will not do that. His options are either to get a 2nd opinion or to seek attention in another facility. There being no other recommendations, I will sign off this case. Dictated By: JOSE BUITRAGO/MARIELLA Conf#: [id number] DID#: [id number]
[2016-09-12 21:20] VITALS: BP 137/87; RESP 18
[2016-09-13] MEDS: SOD CHLORIDE 0.9% 1,000 ML IV SCH ×4 (00:02→23:16)
[2016-09-13] MEDS: HYDROmorphONE 1 MG/ML SYG IV PRN ×4 (00:03→23:10)
[2016-09-13] MEDS: CEFAZOLIN 1 GM/50 ML (PMX) 50 ML IVPB SCH ×3 (05:26→21:40)
[2016-09-13 05:44] LABS: ADD SCAN DIFF NO
[2016-09-13 05:55] LABS: BASOPHILS % 0.5 % (0.0-2.0); EOSINOPHILS # 0.2 10^3/ul (0.0-0.5); EOSINOPHILS % 2.4 % (0.0-7.0); HEMATOCRIT 31.2 % (42.0-52.0); HEMOGLOBIN 11.2 g/dl (14.0-18.0); LYMPHOCYTES # 1.8 10^3/ul (0.8-2.9); LYMPHOCYTES % 28.1 % (15.0-51.0); MEAN CORPUSCULAR HEMOGLOBIN 35.6 pg (29.0-33.0); MEAN CORPUSCULAR HGB CONC 35.9 g/dl (32.0-37.0); MEAN PLATELET VOLUME 9.2 fl (7.4-10.4); MONOCYTE # 0.7 10^3/ul (0.3-0.9); NEUTROPHIL # 3.8 10^3/ul (1.6-7.5); NEUTROPHILS % 57.5 % (39.0-77.0); PLATELET COUNT 254 10^3/UL (140-415); RED BLOOD COUNT 3.15 10^6/ul (4.70-6.10); WHITE BLOOD COUNT 6.6 10^3/ul (4.8-10.8)
[2016-09-13 06:55] LABS: POTASSIUM 3.5 mmol/L (3.5-5.1)
[2016-09-13 06:57] LABS: CREATININE 0.94 mg/dl (0.61-1.24)
[2016-09-13 06:58] LABS: CALCIUM 8.5 mg/dl (8.4-10.2)
[2016-09-13 07:45] VITALS: BP 111/59; RESP 20
[2016-09-13] MEDS: CAPECITABINE 500 MG TAB PO SCH ×2 (09:00→21:00)
[2016-09-13] MEDS: ENOXAPARIN 40 MG/0.4 ML SYG SC SCH (09:48)
--- NOTE | 2016-09-13 12:25 | CONS ---
Date/Time of Note Date/Time of Note DATE: 09/12/16 TIME: 20:48 Assessment/Plan Assessment/Plan Additional Assessment/Plan [facility] INITIAL INPATIENT CONSULTATION NOTE PLACE OF SERVICE: [facility], 2nd Floor Kenia Alvarez DATE OF CONSULTATION: 09/12/2016 ASSESSMENT AND PLAN: A very-pleasant 51-year-old gentleman, well known to me from prior admission in Mar 2015, when he was diagnosed with liver malignancy, currently being maintained on chemo therapy, presenting with abdominal pain associated with cholelithiasis. No evidence for obvious acute cholecystitis. Abdominal pain and symptoms can be from chemo or from malignancy. HIDA could clarify clinical picture. With above assessment, I've recommend the followin. Consider HIDA scan 2. Cont current cares Thank you very much for having me involved in the care of this very pleasant gentleman and his wonderful family. I will continue to follow him along with you closely and will be available to answer any questions at area code . TOTAL VISIT TIME: 45 minutes of which more than half was spent in [id number] discussion with the patient, discussions with family, as well as coordination of care between multiple physicians and providers. REASON FOR CONSULTATION: Abdominal pain HISTORY OF PRESENT ILLNESS: The patient is a very-pleasant 51-year-old gentleman, well known to me from prior admission in Mar 2015, when he was diagnosed with liver malignancy, currently being maintained on chemo therapy, presenting with abdominal pain associated with cholelithiasis. + N/V; + hand/ foot syndrome from chemo; no radiation; able to tolerate food and does not appear to be linked with type of food. Comorbidities: 1. Liver mass, diagnosed and treated as HCC 2. Appendectomy as a child ALLERGIES: NO KNOWN DRUG ALLERGIES MEDICATIONS None SOCIAL HISTORY: The patient lives with family. - Tob; - ETOH; - IVDU FAMILY HISTORY: Other than hypertension in both parents, there are no significant medical, surgical or oncologic issues in the family as reported by the patient or reflected in the chart. REVIEW OF SYSTEMS: Other than above, there are no pertinent positives or pertinent negatives in a complete 14 point review of systems. PHYSICAL EXAMINATION GENERAL: The patient appears to be a very pleasant young man of ([place]) descent sitting up in bed, appearing stated age, BMI 34.8 ( previously 32.18 March 2015), and otherwise in no acute distress. VITAL SIGNS: AVSS (please also see below) HEENT: Normocephalic and atraumatic. Extraocular muscles and hearing are grossly intact bilaterally and symmetrically. Sclerae are nonicteric. Oral cavity is clear; oral mucosa appear to be pink and moist. Dentition: fair. NECK: Supple. There is no lymphadenopathy or JVD. There is no submental, submandibular or supraclavicular lymphadenopathy. CHEST: Rises symmetrically with each breath; patient is breathing comfortably. There are no audible wheezes, rales or rhonchi on the gross exam. HEART: Pulse is regular and palpable on the right wrist. Capillary refill is normal. Carotid pulses are palpable bilaterally and symmetrically in the neck. EXTREMITIES: Lower extremities contain no pitting edema around the ankles bilaterally and symmetrically. ABDOMEN: Abdomen is soft, nontender and nondistended. No evidence of ascites, organomegaly, caput medusae, engorged subcutaneous veins, or other abnormalities. There are no peritoneal signs or guarding. SKIN: Appears to be pink and feels warm to touch. NEUROLOGIC: Awake, alert, and follows commands appropriately. LABORATORY DATA: See below IMAGING: See electronic chart. Please note that I've personally reviewed all pertinent available images and I agree in general with their overall reported findings. Consultation Date/Type/Reason Admit Date/Time Sep 10, 2016 at 19:45 Psychological: no complaints Social History Alcohol Use: none Smoking Status: Never smoker Drug Use: none Exam/Review of Systems Vital Signs Vitals Vital Signs Date Time Temp Pulse Resp B/P Pulse Ox O2 Delivery O2 Flow Rate FiO2 09/12/16 08:05 98.8 80 18 126/74 96 09/10/16 20:56 Room Air Intake and Output 09/11/16 09/11/16 09/12/16 15:00 23:00 07:00 Intake Total 675 ml 1410 ml 925 ml Balance 675 ml 1410 ml 925 ml Results Result Diagram: 09/12/16 0500 09/12/16 0500 Results 24 hrs Laboratory Tests Test 09/12/16 05:00 White Blood Count 7.3 Red Blood Count 3.36 L Hemoglobin 11.3 L Hematocrit 33.5 L Mean Corpuscular Volume 99.7 Mean Corpuscular Hemoglobin 33.6 H Mean Corpuscular Hemoglobin Concent 33.7 Red Cell Distribution Width 15.1 H Platelet Count 229 Mean Platelet Volume 9.3 Neutrophils % 57.0 Lymphocytes % 30.2 Monocytes % 9.4 Eosinophils % 2.9 Basophils % 0.4 Nucleated Red Blood Cells % 0.0 Neutrophils # 4.1 Lymphocytes # 2.2 Monocytes # 0.7 Eosinophils # 0.2 Basophils # 0.0 Nucleated Red Blood Cells # 0.0 Sodium Level 132 L Potassium Level 3.6 Chloride Level 99 Carbon Dioxide Level 22 Anion Gap 15 Blood Urea Nitrogen 12 Creatinine 1.00 Glucose Level 100 Calcium Level 8.5 Medications Medications Current Medications Capecitabine 2000 mg 2,000 mg BID PO ; Start 09/10/16 at 23:30 Sodium Chloride (NS) 1,000 ml @ 125 mls/hr Q8H IV Last administered on 18:25; Admin Dose 125 MLS/HR; Start 09/10/16 at 23:17 Ondansetron HCl (Zofran Tab) 4 mg Q6H PRN PO NAUSEA AND/OR VOMITING; Start 09/10 at 23:30 Ondansetron HCl (Zofran Inj) 4 mg Q6H PRN IV NAUSEA AND/OR VOMITING; Start 09/10 at 23:30 Acetaminophen (Tylenol Tab) 650 mg Q6H PRN PO PAIN LEVEL 1-3 OR FEVER; Start at 23:30 Enoxaparin Sodium (Lovenox) 40 mg DAILY SC Last administered on 09/12/16 08:59 ; Admin Dose 40 MG; Start 09/11/16 at 09:00 Hydromorphone HCl 1 mg 1 mg Q2 PRN IV SEVERE PAIN LEVEL 7-10 Last administered on 09/12/16 16:37; Admin Dose 1 MG; Start 09/11/16 at 09:00 Cefazolin Sodium (Ancef 1 Gm/50 ml (Pmx)) 50 ml @ 100 mls/hr Q8 IVPB Last administered on 09/12/16 14:11; Admin Dose 100 MLS/HR; Start 09/11/16 at 09:31 TREY TRUONG M.D. Sep 12, 2016 20:58
--- NOTE | 2016-09-13 12:45 | PN ---
Date/Time of Note Date/Time of Note DATE: 09/13/16 TIME: 12:43 Assessment/Plan Lines/Catheters IV Catheter Type (from [facility]): Peripheral IV Gordillo in Place (from [facility]): No Assessment/Plan Assessment/Plan [facility] Progress Note Date of Service: 09/13/2016 Today's Impression & Plan: Overall stable with ongoing issues with abdominal pain in the right upper quadrant. Will order HIDA scan today. With above assessment, I've recommended the following for today: 1. HIDA scan 2. Please request records of oncologic treatment from patient's primary oncologist 3. Labs in a.m. 4. Possible lap christy if HIDA scan positive Thank you again for your great care of this very pleasant patient and wonderful family. If there are any questions, please feel free to call me at [phone]. TOTAL VISIT TIME: 20 minutes of which more than half was spent in [id number] discussion with the patient, possibly including family, as well as coordination of care between multiple physicians and providers. Disclaimer: Inadvertent spelling or grammatical errors are likely due to EHR/ dictation software use and do not reflect on the overall quality of patient care. Updated Clinical Summary: The patient is a very-pleasant 51-year-old gentleman, well known to me from prior admission in Mar 2015, when he was diagnosed with liver malignancy, currently being maintained on chemo therapy, presenting with abdominal pain associated with cholelithiasis. + N/V; + hand/foot syndrome from chemo; no radiation; able to tolerate food and does not appear to be linked with type of food. Comorbidities: 1. Liver mass, diagnosed and treated as HCC 2. Appendectomy as a child Subjective: No major events or complaints; still with right upper quadrant abdominal pain and requires pain medications; no n/v/d; no sob or cp; + flatus; + BM and normal ; + activity Objective: Vitals: See below Exam: GENERAL: On exam, the patient was sitting in a chair and appeared to be comfortable and in no acute distress. Eating a regular lunch. ABDOMEN: Soft, mild to moderately tender in the right upper quadrant r and nondistended. There are no peritoneal signs or guarding. SKIN: Skin appears to be pink and feels warm to touch. NEUROLOGIC: Patient is awake, alert, and follows commands appropriately. Exam/Review of Systems Vital Signs Vitals Vital Signs Date Time Temp Pulse Resp B/P Pulse Ox O2 Delivery O2 Flow Rate FiO2 09/13/16 07:45 98.6 80 20 111/59 96 09/10/16 20:56 Room Air Intake and Output 09/12/16 09/12/16 09/13/16 15:00 23:00 07:00 Intake Total 425 ml 2250 ml 1725 ml Output Total 250 ml Balance 425 ml 2250 ml 1475 ml Results Result Diagram: 09/13/16 0537 09/13/16 0537 TREY TRUONG M.D. Sep 13, 2016 12:45
--- NOTE | 2016-09-13 17:24 | PN ---
Date/Time of Note Date/Time of Note DATE: 09/13/16 TIME: 17:23 Assessment/Plan VTE Prophylaxis VTE Prophylaxis Intervention: other Lines/Catheters IV [facility]ter Type (from [facility]): Peripheral IV Urinary Cath still in place: No Assessment/Plan Assessment/Plan - Gallstone pancreatitis. Dr. Ferreira is asked to see patient in gastroenterology consultation. Dr. Martinez is following in general surgery consultation. - Hepatocellular carcinoma. Patient currently on Xeloda. Further recommendations based on clinical course. Plan of care discussed with Dr. Banks. Subjective 24 Hr Interval Summary Eyes: no complaints ENT: no complaints Respiratory: no complaints Cardiovascular: no complaints Gastrointestinal: pain Genitourinary: no complaints Musculoskeletal: no complaints Skin: no complaints Neurologic: no complaints Endocrine: no complaints Exam/Review of Systems Vital Signs Vitals Vital Signs Date Time Temp Pulse Resp B/P Pulse Ox O2 Delivery O2 Flow Rate FiO2 09/13/16 07:45 98.6 80 20 111/59 96 09/10/16 20:56 Room Air Intake and Output 09/12/16 09/12/16 09/13/16 15:00 23:00 07:00 Intake Total 425 ml 2250 ml 1725 ml Output Total 250 ml Balance 425 ml 2250 ml 1475 ml Exam Constitutional: alert Results Result Diagram: 09/13/16 0537 09/13/16 0537 Results 24 hrs Laboratory Tests Test 09/13/16 05:37 White Blood Count 6.6 Red Blood Count 3.15 L Hemoglobin 11.2 L Hematocrit 31.2 L Mean Corpuscular Volume 99.0 Mean Corpuscular Hemoglobin 35.6 H Mean Corpuscular Hemoglobin Concent 35.9 Red Cell Distribution Width 15.0 H Platelet Count 254 Mean Platelet Volume 9.2 Neutrophils % 57.5 Lymphocytes % 28.1 Monocytes % 11.0 Eosinophils % 2.4 Basophils % 0.5 Nucleated Red Blood Cells % 0.0 Neutrophils # 3.8 Lymphocytes # 1.8 Monocytes # 0.7 Eosinophils # 0.2 Basophils # 0.0 Nucleated Red Blood Cells # 0.0 Sodium Level 132 L Potassium Level 3.5 Chloride Level 100 Carbon Dioxide Level 23 Anion Gap 13 Blood Urea Nitrogen 11 Creatinine 0.94 Glucose Level 114 Calcium Level 8.5 Medications Medications Current Medications Capecitabine 2000 mg 2,000 mg BID PO ; Start 09/10/16 at 23:30 Sodium Chloride (NS) 1,000 ml @ 125 mls/hr Q8H IV Last administered on 12:12; Admin Dose 125 MLS/HR; Start 09/10/16 at 23:17 Ondansetron HCl (Zofran Tab) 4 mg Q6H PRN PO NAUSEA AND/OR VOMITING; Start 09/10 at 23:30 Ondansetron HCl (Zofran Inj) 4 mg Q6H PRN IV NAUSEA AND/OR VOMITING Last administered on 09/13/16 02:24; Admin Dose 4 MG; Start 09/10/16 at 23:30 Acetaminophen (Tylenol Tab) 650 mg Q6H PRN PO PAIN LEVEL 1-3 OR FEVER; Start at 23:30 Enoxaparin Sodium (Lovenox) 40 mg DAILY SC Last administered on 09/13/16 09:48 ; Admin Dose 40 MG; Start 09/11/16 at 09:00 Hydromorphone HCl 1 mg 1 mg Q2 PRN IV SEVERE PAIN LEVEL 7-10 Last administered on 09/13/16 09:55; Admin Dose 1 MG; Start 09/11/16 at 09:00 Cefazolin Sodium (Ancef 1 Gm/50 ml (Pmx)) 50 ml @ 100 mls/hr Q8 IVPB Last administered on 09/13/16 13:12; Admin Dose 100 MLS/HR; Start 09/11/16 at 09:31 AYSHA KATZ Sep 13, 2016 17:24
[2016-09-13 21:30] VITALS: BP 129/74; PULSE 91; RESP 18
--- NOTE | 2016-09-13 23:49 | CONS ---
Date/Time of Note Date/Time of Note DATE: 09/13/16 TIME: 23:45 Assessment/Plan Assessment/Plan Chief Complaint/Hosp Course - Hepatocellular carcinoma. treated with Xeloda. chemo - on hold - Gallstone pancreatitis. Dr. Ferreira is asked to see patient in gastroenterology consultation. Dr. Martinez is following in general surgery consultation. hida- ordered LEUKOCYTOSIS- RESOLVED REACTIVE ANEMIA- COMPLEX MONITOR Problems: Consultation Date/Type/Reason Admit Date/Time Sep 10, 2016 at 19:45 24 HR Interval Summary Free Text/Dictation + abdominal pain in the right upper quadrant. HIDA scan- ordered Exam/Review of Systems Vital Signs Vitals Vital Signs Date Time Temp Pulse Resp B/P Pulse Ox O2 Delivery O2 Flow Rate FiO2 09/13/16 07:45 98.6 80 20 111/59 96 09/10/16 20:56 Room Air Intake and Output 09/12/16 09/12/16 09/13/16 15:00 23:00 07:00 Intake Total 425 ml 2250 ml 1725 ml Output Total 250 ml Balance 425 ml 2250 ml 1475 ml Exam GENERAL: The patient is a 51-year-old [place] gentleman who at this time is alert, well built. VITAL SIGNS: Afebrile. CARDIOVASCULAR: Normal heart sounds. RESPIRATORY: Normal breath sounds. ABDOMEN: Showed unremarkable findings. Results Result Diagram: 09/13/16 0537 09/13/16 0537 Results 24 hrs Laboratory Tests Test 09/13/16 05:37 White Blood Count 6.6 Red Blood Count 3.15 L Hemoglobin 11.2 L Hematocrit 31.2 L Mean Corpuscular Volume 99.0 Mean Corpuscular Hemoglobin 35.6 H Mean Corpuscular Hemoglobin Concent 35.9 Red Cell Distribution Width 15.0 H Platelet Count 254 Mean Platelet Volume 9.2 Neutrophils % 57.5 Lymphocytes % 28.1 Monocytes % 11.0 Eosinophils % 2.4 Basophils % 0.5 Nucleated Red Blood Cells % 0.0 Neutrophils # 3.8 Lymphocytes # 1.8 Monocytes # 0.7 Eosinophils # 0.2 Basophils # 0.0 Nucleated Red Blood Cells # 0.0 Sodium Level 132 L Potassium Level 3.5 Chloride Level 100 Carbon Dioxide Level 23 Anion Gap 13 Blood Urea Nitrogen 11 Creatinine 0.94 Glucose Level 114 Calcium Level 8.5 Medications Medications Current Medications Capecitabine 2000 mg 2,000 mg BID PO ; Start 09/10/16 at 23:30 Sodium Chloride (NS) 1,000 ml @ 125 mls/hr Q8H IV Last administered on 23:16; Admin Dose 125 MLS/HR; Start 09/10/16 at 23:17 Ondansetron HCl (Zofran Tab) 4 mg Q6H PRN PO NAUSEA AND/OR VOMITING; Start 09/10 at 23:30 Ondansetron HCl (Zofran Inj) 4 mg Q6H PRN IV NAUSEA AND/OR VOMITING Last administered on 09/13/16 02:24; Admin Dose 4 MG; Start 09/10/16 at 23:30 Acetaminophen (Tylenol Tab) 650 mg Q6H PRN PO PAIN LEVEL 1-3 OR FEVER; Start at 23:30 Enoxaparin Sodium (Lovenox) 40 mg DAILY SC Last administered on 09/13/16 09:48 ; Admin Dose 40 MG; Start 09/11/16 at 09:00 Hydromorphone HCl 1 mg 1 mg Q2 PRN IV SEVERE PAIN LEVEL 7-10 Last administered on 09/13/16 23:10; Admin Dose 1 MG; Start 09/11/16 at 09:00 Cefazolin Sodium (Ancef 1 Gm/50 ml (Pmx)) 50 ml @ 100 mls/hr Q8 IVPB Last administered on 09/13/16 21:40; Admin Dose 100 MLS/HR; Start 09/11/16 at 09:31 ETHEL JAMIL MD Sep 13, 2016 23:49
[2016-09-14] VITALS (13 sets, daily range): BP systolic 116–143; BP diastolic 69–88; PULSE 83–92; RESP 17–28
[2016-09-14] MEDS: HYDROmorphONE 1 MG/ML SYG IV PRN ×4 (05:38→22:13)
[2016-09-14] MEDS: CEFAZOLIN 1 GM/50 ML (PMX) 50 ML IVPB SCH (05:38)
[2016-09-14 07:05] LABS: ADD SCAN DIFF NO
[2016-09-14 07:10] LABS: BASOPHILS % 0.4 % (0.0-2.0); EOSINOPHILS # 0.2 10^3/ul (0.0-0.5); EOSINOPHILS % 3.4 % (0.0-7.0); HEMATOCRIT 33.6 % (42.0-52.0); HEMOGLOBIN 11.6 g/dl (14.0-18.0); LYMPHOCYTES # 2.3 10^3/ul (0.8-2.9); LYMPHOCYTES % 34.1 % (15.0-51.0); MEAN CORPUSCULAR HGB CONC 34.5 g/dl (32.0-37.0); MEAN CORPUSCULAR VOLUME 101.5 fl (82.0-101.0); MONOCYTE # 0.8 10^3/ul (0.3-0.9); MONOCYTES % 12.2 % (0.0-11.0); NEUTROPHIL # 3.4 10^3/ul (1.6-7.5); NEUTROPHILS % 49.5 % (39.0-77.0); PLATELET COUNT 259 10^3/UL (140-415); RED BLOOD COUNT 3.31 10^6/ul (4.70-6.10); RED CELL DISTRIBUTION WIDTH 15.6 % (11.5-14.5); WHITE BLOOD COUNT 6.8 10^3/ul (4.8-10.8)
[2016-09-14] MEDS: SOD CHLORIDE 0.9% 1,000 ML IV SCH (07:17)
[2016-09-14 07:19] LABS: INR 1.27; PT RATIO 1.3
[2016-09-14 07:20] LABS: PARTIAL THROMBOPLASTIN TIME 26.3 Sec (25.0-35.0)
[2016-09-14 07:21] LABS: BILIRUBIN,INDIRECT 1.7 mg/dl (0-1.1); BILIRUBIN,TOTAL 1.7 mg/dl (0.2-1.3); CREATININE 1.03 mg/dl (0.61-1.24)
[2016-09-14 07:22] LABS: ALBUMIN/GLOBULIN RATIO 1.25; CALCIUM 8.9 mg/dl (8.4-10.2); MAGNESIUM 1.7 mg/dl (1.7-2.5); PHOSPHORUS 4.5 mg/dl (2.5-4.9); TOTAL PROTEIN 5.4 g/dl (6.1-8.1)
[2016-09-14] MEDS ORDERED: BUPIVACAINE 0.25%/EPI (SDV) 30 ML INJ ONE (07:46)
--- NOTE | 2016-09-14 07:53 | HPN ---
Date/Time of Note Date/Time of Note DATE: 09/14/16 TIME: 07:53 Interval H&P Admission Note Pt. seen H&P reviewed: No system changes Pt. seen H&P reviewed. No system changes (I attest that I have seen and examined the patient and reviewed the operation in detail, as well as its risks , benefits and alternatives of the operation). I attest that I have seen and examined the patient and reviewed in detail the operation, and its associated risks, benefits and alternative. I have answered all the patient's questions to the best of my ability and the patient wishes to proceed. Please refer to rest of electronic medical record for additional updates. TREY TRUONG M.D. Sep 14, 2016 07:53
[2016-09-14] MEDS ORDERED: PROPOFOL 20 ML ONE (07:56)
[2016-09-14] MEDS ORDERED: LIDOCAINE 2% (SDV) 5 ML INJ ONE (07:56)
[2016-09-14] MEDS ORDERED: NEOSTIGMINE 3 MG/3 ML SYRINGE ONE ×2 (07:56→09:01)
[2016-09-14] MEDS ORDERED: MEPERIDINE 100 MG INJ ONE (07:56)
[2016-09-14] MEDS ORDERED: ROCURONIUM 50 MG INJ ONE (07:56)
[2016-09-14] MEDS ORDERED: SUCCINYLCHOLINE CHLORIDE 100 MG/5 ML SYG IV ONE (07:56)
[2016-09-14] MEDS ORDERED: GLYCOPYRROLATE 1 MG INJ ONE (07:56)
[2016-09-14] MEDS ORDERED: PIPER-TAZO 3.375 GM IV (PMX) 100 ML ONE (08:32)
[2016-09-14] MEDS ORDERED: METOCLOPRAMIDE 10 MG INJ IV PRN (09:00)
[2016-09-14] MEDS ORDERED: LABETALOL HCL 20MG INJ IV PRN (09:00)
[2016-09-14] MEDS ORDERED: MIDAZOLAM 1 MG/ML 2 ML INJ IV PRN (09:00)
[2016-09-14] MEDS: ENOXAPARIN 40 MG/0.4 ML SYG SC SCH (09:00)
[2016-09-14] MEDS ORDERED: HYDROmorphONE (0.2 MG/ML) 10ML SYG IV PRN (09:00)
[2016-09-14] MEDS ORDERED: hydrALAzine 20 MG INJ IV PRN (09:00)
[2016-09-14] MEDS ORDERED: EPHEDrine SULFATE 50 MG/5 ML SYG IV PRN (09:00)
[2016-09-14] MEDS ORDERED: FENTAnyl 50 MCG/ML VIAL IV PRN ×2 (09:00)
[2016-09-14] MEDS ORDERED: MEPERIDINE 25 MG INJ IV PRN (09:00)
[2016-09-14] MEDS ORDERED: DIPHENHYDRAMINE 50 MG INJ IV PRN (09:00)
[2016-09-14] MEDS ORDERED: ONDANSETRON 4 MG INJ IV PRN (09:00)
[2016-09-14] MEDS ORDERED: HYDROCODONE/APAP (5/325) TAB PO PRN ×2 (09:30)
[2016-09-14] MEDS ORDERED: NA PHOSPHATE/BIPHOS 133 ML ENEMA PR PRN (09:30)
[2016-09-14] MEDS ORDERED: DOCUSATE SODIUM 100 MG CAP PO PRN (09:30)
[2016-09-14] MEDS ORDERED: HYDROmorphONE 1 MG/ML SYG IV PRN ×2 (09:30)
[2016-09-14] MEDS ORDERED: BISACODYL 10 MG SUPP PR PRN (09:30)
--- NOTE | 2016-09-14 09:38 | OPR ---
Date/Time of Note Date/Time of Note DATE: 09/14/16 TIME: 09:37 Operative Report Operative\Procedure Findings [facility] INPATIENT OPERATIVE NOTE PLACE OF SERVICE: [facility] DATE OF SURGERY: 09/14/2016 PREOPERATIVE DIAGNOSIS: 1. Symptomatic biliary colic with cholelithiasis 2. Liver mass, diagnosed and treated as HCC 3. Appendectomy as a child POSTOPERATIVE DIAGNOSIS: 1. Symptomatic biliary colic with cholelithiasis 2. Liver mass, diagnosed and treated as HCC 3. Appendectomy as a child OPERATION: 1. Laparoscopic cholecystectomy 2. Wedge liver biopsy segment 3 3. Lysis of adhesions SURGEON: Trey Truong M.D. FIRE BATTALION CHIEF: None ANESTHESIA: General endotracheal tube anesthesia ANESTHESIOLOGIST: Ryan Olmstead M.D. BRIEF SUMMARY: An otherwise uncomplicated laparoscopic cholecystectomy was performed with findings of acute cholecystitis. Updated Clinical Summary: The patient is a very-pleasant 51-year-old gentleman, well known to me from prior admission in Mar 2015, when he was diagnosed with liver malignancy, currently being maintained on chemo therapy, presenting with abdominal pain associated with cholelithiasis. + N/V; + hand/foot syndrome from chemo; no radiation; able to tolerate food and does not appear to be linked with type of food. Comorbidities: 1. Liver mass, diagnosed and treated as HCC 2. Appendectomy as a child BRIEF HISTORY: The patient is a very pleasant 51-year-old gentleman, well known to me from prior admission in Mar 2015, when he was diagnosed with liver malignancy, currently being maintained on chemo therapy, presenting with abdominal pain associated with cholelithiasis. + N/V; + hand/foot syndrome from chemo; no radiation; able to tolerate food and does not appear to be linked with type of food. HIDA scan was performed and preliminary finding was nonvisualization of gallbladder within the first few hours. Given the special situation with metastatic hepatocellular carcinoma (intrahepatic) and ongoing need for chemotherapy, my recommendation was for a laparoscopic cholecystectomy to be done now as opposed to waiting for more information to present itself. I met with the patient and family and counseled them regarding the possible options of treatment, and I strongly suggested a laparoscopic, possible open cholecystectomy. We reviewed the operation in detail as well as the risks, benefits, alternatives, and expected outcomes of this operation. After careful consideration of all the risks, benefits, and alternatives, the patient and family appeared to understand those risks and wished to proceed with surgery. For a detailed report of my consultation with patient and family, please refer to my separate consultation note. STATEMENT OF THE INFORMED CONSENT: The patient and family appeared to understand the risks of the operation to include, but not be limited to risk of postoperative pain and scar tissue, possible infection or bleeding requiring other interventions such as opening the wound, placement of drainage catheters, or other operative interventions; possible injury to surrounding to structures including bowel, bladder, bile duct, or blood vessels, or solid organs such as liver, kidney, or pancreas requiring other interventions or procedures; possible leakage of bile from surgical clip sites, suture lines, or worse, from common bile duct injury, causing significant increase in morbidity and mortality and requiring multiple interventions including but not limited to, placement of drainage catheters, imaging studies, as well as operative interventions; possible other source of sepsis such as urinary tract infections or pneumonias, or other sources of potentially life threatening problems such as deep venous thrombus formation causing pulmonary embolism, myocardial arrhythmias and infarctions, and even . After careful consideration of all their options, the patient and family appeared to understand and wished to proceed with surgery. DESCRIPTION OF PROCEDURE: After obtaining informed consent, the patient was brought into the operating room and was placed in a normal supine position, where successful general endotracheal tube anesthesia was performed. The patient 's abdominal skin was prepped and draped, from the nipple line down to the level of the groins, in the usual sterile fashion. Intravenous access was already in place, and appropriately chosen and dosed prophylactic intravenous antimicrobials were administered. We then called a surgical time-out where patient's identification, date of , nature of the operation, allergies, presence of intravenous antimicrobials, presence of needed equipment, and any other concerns were reviewed and agreed upon by all members of the operating room team. We then started the operation by placing a 5-mm skin incision in the right- upper quadrant, subcostal midclavicular line, and introduced a 5-mm [employer] trocar into the peritoneal space, visualizing all the layers of the abdominal wall as we entered. Note that there was no indication of any injury to underlying structures once we entered the peritoneum. We insufflated the abdominal cavity to a maximum pressure of 15 mmHg, again, confirmed lack of any injury to underlying structures prior to visualizing the rest of the abdominal cavity. We found the fundus of the gallbladder to be visible. The liver showed multiple masses the largest of which was in the left lateral lobe consistent with bug we had seen on the preoperative images. Note that there was no evidence of obvious extrahepatic metastatic disease. No evidence of calcifications or significant issues with adhesions, or other abnormalities. The liver appeared to be healthy. With this information, we went a head and placed the other trocars under direct visualization, after injecting their sites with 0.25% Marcaine with epinephrine , placing a 5-mm trocar in the umbilical midline area, a 5-mm trocar in the right anterior axillary line, and a 12-mm trocar in the midline subxiphoid region. With our instruments in place, we had excellent visualization and access to the right-upper quadrant. Prior to grasping the fundus of the gallbladder, we did adhesio lysis of omental attachments onto the undersurface of the right lobe of the liver to facilitate movement of the liver for the operation and to decrease chance of intrahepatic or extrahepatic bleeding. We then we grasped the fundus of the gallbladder and pointed up towards the right-upper quadrant. We were then able to grasp the infundibulum and pull it out in order to expose the critical triangle of Calot. We then placed our usual serosal cuts along the long axis of the gallbladder 1 cm away from its attachment to the liver bed up towards the fundus, and then joined these 2 lines under the infundibulum, taking care not to deliver any energy to underlying structures. On the right lateral side of the gallbladder, there was a small hole that was made on the wall of the gallbladder and small spillage of bile which be immediately controlled with suction, followed by placement of a surgical clip on the opening on the wall of the gallbladder that stopped the spillage. No stones came out. We then performed meticulous dissection to identify and circumferentially isolate both the cystic duct and cystic artery, prior to transecting them between 2 surgical Endoclips, proximally and one distally on the cystic artery and 3 surgical endoclips proximally and one distally on the cystic duct, transecting both using cold scissors, and only after making sure that these were the only 2 structures going into the gallbladder. We then shaved the gallbladder off the gallbladder bed using cautery, and then delivered it out inside of an EndoCatch bag through the 12-mm trocar site without enlarging the fascia or contaminating the wound. The gallbladder was sent to Pathology for evaluation. We then performed a wedge liver biopsy of a lesion on segment 3 of the liver using cold scissors to get the specimen detached from the liver followed by hemostatic control using high-energy cautery. We send a specimen to pathology for permanent sections. Returning to the abdominal cavity, we ensured that there was adequate hemostasis and bile-stasis prior to removal of all of or equipment, including the pneumoperitoneum, and then reapproximating the 12-mm trocar site with one [id number] 0 Vicryl suture, followed by washing the wounds with copious amounts of normal saline, and then reapproximating the skin using interrupted 4- 0 Monocryl sutures. Light dressing was then applied. At the end of the operation, both the sponge count and needle count were reportedly correct x2. The patient tolerated the procedure without any reported complications. ESTIMATED BLOOD LOSS: Less than 10 mL. BLOOD OR BLOOD PRODUCT TRANSFUSIONS: None to my knowledge. SPECIMENS: 1. Gallbladder COMPLICATIONS: None. DISPOSITION: Recovery area. Disclaimer: Inadvertent spelling and grammatical errors are likely due to EHR/ dictation software use and do not reflect on the quality of delivered patient care. TREY TRUONG M.D. Sep 14, 2016 09:38
--- NOTE | 2016-09-14 09:39 | RADRPT ---
PROCEDURE: HIDA scan CLINICAL INDICATION: 51 -year-old patient with abdominal pain. TECHNIQUE: Following the intravenous injection of 8.2 mCi of Tc-99m mebrofenin, multiple images of the abdomen were obtained up to 4 hours post injection. COMPARISON: No prior studies. FINDINGS: The liver is promptly visualized, demonstrates homogeneous distribution of radionuclide. There is visualization of the common bile duct and gastrointestinal activity within normal time. The gallbladder is not visualized up to 4 hours post injection. IMPRESSION: 1. Nonvisualization of the gallbladder up to 4 hours post injection. 2. No evidence of a common bile duct obstruction. RPTAT: HH .Mary Ann Smallwood MD, MD Date Time Electronically viewed and signed by .Mary Ann Smallwood MD, on 09/14/2016 09:39 .L/
[2016-09-14] MEDS: HYDROmorphONE (0.2 MG/ML) 10ML SYG IV PRN ×2 (09:52→09:59)
[2016-09-14] MEDS: PIPER-TAZO 3.375 GM IV (PMX) 100 ML IVPB SCH ×2 (11:05→17:23)
[2016-09-14] MEDS: D5W-0.45 NACL + KCL 20 MEQ 1,000 ML IV SCH ×2 (11:05→19:30)
--- NOTE | 2016-09-14 18:11 | PN ---
Date/Time of Note Date/Time of Note DATE: 09/14/16 TIME: 18:09 Assessment/Plan VTE Prophylaxis VTE Prophylaxis Intervention: SCD's Lines/Catheters IV [facility] Peripheral IV Urinary Cath still in place: No Assessment/Plan Chief Complaint/Hosp Course Assessment and plan: - Gallstone pancreatitis. Dr. Ferreira is asked to see patient in gastroenterology consultation. Dr. Martinez is following in general surgery consultation. - Hepatocellular carcinoma. Patient currently on Xeloda. - Status post laparoscopic cholecystectomy and liver biopsy by Dr. Bustamante. Follow-up on biopsy. Further recommendations based on clinical course. Plan of care discussed with Dr. Banks. Problems: Subjective 24 Hr Interval Summary Free Text/Dictation Patient tolerates diet well, able to ambulate in the hallway, pain is well controlled. Exam/Review of Systems Vital Signs Vitals Vital Signs Date Time Temp Pulse Resp B/P Pulse Ox O2 Delivery O2 Flow Rate FiO2 09/14/16 15:01 98.3 83 18 132/75 98 Room Air Intake and Output 09/13/16 09/13/16 09/14/16 15:00 23:00 07:00 Intake Total 800 ml 1270 ml 1540 ml Balance 800 ml 1270 ml 1540 ml Exam Constitutional: alert, oriented Psych: no complaints Head: atraumatic, normocephalic Eyes: nl conjunctiva ENMT: nl external ears & nose Neck: non-tender, supple Respiratory: clear to auscultation, normal air movement Cardiovascular: nl pulses, regular rate and rhythm Gastrointestinal: other (Right upper quadrant tenderness), soft, status post laparoscopic cholecystectomy. Musculoskeletal: nl extremities to inspection Extremities: normal pulses Neurological: P[employer]ICE II-XII intact Results Result Diagram: 09/14/16 0500 09/14/16 0540 Results 24 hrs Laboratory Tests Test 09/14/16 05:00 09/14/16 05:30 09/14/16 05:40 White Blood Count 6.8 Red Blood Count 3.31 L Hemoglobin 11.6 L Hematocrit 33.6 L Mean Corpuscular Volume 101.5 H Mean Corpuscular Hemoglobin 35.0 H Mean Corpuscular Hemoglobin Concent 34.5 Red Cell Distribution Width 15.6 H Platelet Count 259 Mean Platelet Volume 9.0 Neutrophils % 49.5 Lymphocytes % 34.1 Monocytes % 12.2 H Eosinophils % 3.4 Basophils % 0.4 Nucleated Red Blood Cells % 0.0 Neutrophils # 3.4 Lymphocytes # 2.3 Monocytes # 0.8 Eosinophils # 0.2 Basophils # 0.0 Nucleated Red Blood Cells # 0.0 Prothrombin Time 16.0 H Prothrombin Time Ratio 1.3 INR International Normalized Ratio 1.27 Activated Partial Thromboplast Time 26.3 Sodium Level 136 Potassium Level 4.0 Chloride Level 101 Carbon Dioxide Level 25 Anion Gap 14 Blood Urea Nitrogen 11 Creatinine 1.03 Glucose Level 93 Lactic Acid Level 1.1 Calcium Level 8.9 Phosphorus Level 4.5 Magnesium Level 1.7 Total Bilirubin 1.7 H Direct Bilirubin 0.00 Indirect Bilirubin 1.7 H Aspartate Amino Transf (AST/SGOT) 42 Alanine Aminotransferase (ALT/SGPT) 41 Alkaline Phosphatase 77 Total Protein 5.4 L Albumin 3.0 L Globulin 2.40 Albumin/Globulin Ratio 1.25 Medications Medications Current Medications Ondansetron HCl (Zofran Tab) 4 mg Q6H PRN PO NAUSEA AND/OR VOMITING Last administered on 09/14/16 11:05; Admin Dose 4 MG; Start 09/10/16 at 23:30 Ondansetron HCl (Zofran Inj) 4 mg Q6H PRN IV NAUSEA AND/OR VOMITING Last administered on 09/13/16 02:24; Admin Dose 4 MG; Start 09/10/16 at 23:30 Acetaminophen (Tylenol Tab) 650 mg Q6H PRN PO PAIN LEVEL 1-3 OR FEVER; Start at 23:30 Enoxaparin Sodium (Lovenox) 40 mg DAILY SC Last administered on 09/13/16 09:48 ; Admin Dose 40 MG; Start 09/11/16 at 09:00 Hydromorphone HCl 1 mg 1 mg Q2 PRN IV SEVERE PAIN LEVEL 7-10 Last administered on 09/14/16 11:06; Admin Dose 1 MG; Start 09/11/16 at 09:00 Potassium Chloride/Dextrose/ Sod Cl (D5-1/2ns + KCl 20 Meq) 1,000 ml @ 100 mls/ hr Q10H IV Last administered on 09/14/16 11:05; Admin Dose 100 MLS/HR; Start at 09:30 Acetaminophen/ Hydrocodone Bitart ([place] (5/325)) 1 tab Q4H PRN PO PAIN LEVEL 4 -7; Start 09/14/16 at 09:30 Acetaminophen/ Hydrocodone Bitart ([place] (5/325)) 2 tab Q4H PRN PO PAIN LEVEL 7 -10; Start 09/14/16 at 09:30 Hydromorphone HCl (Dilaudid) 0.5 mg Q2H PRN IV PAIN; Start 09/14/16 at 09:30 Hydromorphone HCl (Dilaudid) 1 mg Q2H PRN IV PAIN; Start 09/14/16 at 09:30 Docusate Sodium (Colace) 100 mg BID PRN PO CONSTIPATION; Start 09/14/16 at 09:30 Bisacodyl (Dulcolax Supp) 10 mg BID PRN [place] CONSTIPATION; Start 09/14/16 at 09:30 Sodium Biphosphate/ Sodium Phosphate 133 ml 133 ml BID PRN [place] CONSTIPATION; Start 09/14/16 at 09:30 Piperacillin Sod/ Tazobactam Sod (Zosyn 3.375gm/ 100 ml (Pmx)) 100 ml @ 200 mls /hr Q6 IVPB Last administered on 09/14/16t 17:23; Admin Dose 200 MLS/HR; Start 09/14/16 at 12:00; Stop 09/14/16 at 18:29 ANDREI PIEDRA Sep 14, 2016 18:11
--- NOTE | 2016-09-14 23:40 | CONS ---
Date/Time of Note Date/Time of Note DATE: 09/14/16 TIME: 23:38 Assessment/Plan Assessment/Plan Chief Complaint/Hosp Course - Hepatocellular carcinoma. treated with Xeloda. chemo - on hold - Gallstone pancreatitis, Symptomatic biliary colic with cholelithiasis Dr. Ferreira is asked to see patient in gastroenterology consultation. hida- + POST LAP MASON, AND WEDGE RESECTION OF LIVER LEUKOCYTOSIS- RESOLVED REACTIVE ANEMIA- COMPLEX MONITOR Problems: Consultation Date/Type/Reason Admit Date/Time Sep 10, 2016 at 19:45 24 HR Interval Summary Free Text/Dictation ALL NOTED POST LAP MASON PAIN CONTROLLED Exam/Review of Systems Vital Signs Vitals Vital Signs Date Time Temp Pulse Resp B/P Pulse Ox O2 Delivery O2 Flow Rate FiO2 09/14/16 20:55 99.0 94 19 119/88 97 09/14/16 15:01 Room Air Intake and Output 09/13/16 09/13/16 09/14/16 15:00 23:00 07:00 Intake Total 800 ml 1270 ml 1540 ml Balance 800 ml 1270 ml 1540 ml Exam Constitutional: alert, oriented Psych: no complaints Head: atraumatic, normocephalic Eyes: nl conjunctiva ENMT: nl external ears & nose Neck: non-tender, supple Respiratory: clear to auscultation, normal air movement Cardiovascular: nl pulses, regular rate and rhythm Gastrointestinal: other (Right upper quadrant tenderness), soft, status post laparoscopic cholecystectomy. Musculoskeletal: nl extremities to inspection Extremities: normal pulses Neurological: SUBWAY OPERATOR II-XII intact Results Result Diagram: 09/14/16 0500 09/14/16 0540 Results 24 hrs Laboratory Tests Test 09/14/16 05:00 09/14/16 05:30 09/14/16 05:40 White Blood Count 6.8 Red Blood Count 3.31 L Hemoglobin 11.6 L Hematocrit 33.6 L Mean Corpuscular Volume 101.5 H Mean Corpuscular Hemoglobin 35.0 H Mean Corpuscular Hemoglobin Concent 34.5 Red Cell Distribution Width 15.6 H Platelet Count 259 Mean Platelet Volume 9.0 Neutrophils % 49.5 Lymphocytes % 34.1 Monocytes % 12.2 H Eosinophils % 3.4 Basophils % 0.4 Nucleated Red Blood Cells % 0.0 Neutrophils # 3.4 Lymphocytes # 2.3 Monocytes # 0.8 Eosinophils # 0.2 Basophils # 0.0 Nucleated Red Blood Cells # 0.0 Prothrombin Time 16.0 H Prothrombin Time Ratio 1.3 INR International Normalized Ratio 1.27 Activated Partial Thromboplast Time 26.3 Sodium Level 136 Potassium Level 4.0 Chloride Level 101 Carbon Dioxide Level 25 Anion Gap 14 Blood Urea Nitrogen 11 Creatinine 1.03 Glucose Level 93 Lactic Acid Level 1.1 Calcium Level 8.9 Phosphorus Level 4.5 Magnesium Level 1.7 Total Bilirubin 1.7 H Direct Bilirubin 0.00 Indirect Bilirubin 1.7 H Aspartate Amino Transf (AST/SGOT) 42 Alanine Aminotransferase (ALT/SGPT) 41 Alkaline Phosphatase 77 Total Protein 5.4 L Albumin 3.0 L Globulin 2.40 Albumin/Globulin Ratio 1.25 Medications Medications Current Medications Ondansetron HCl (Zofran Tab) 4 mg Q6H PRN PO NAUSEA AND/OR VOMITING Last administered on 09/14/16 11:05; Admin Dose 4 MG; Start 09/10/16 at 23:30 Ondansetron HCl (Zofran Inj) 4 mg Q6H PRN IV NAUSEA AND/OR VOMITING Last administered on 09/13/16 02:24; Admin Dose 4 MG; Start 09/10/16 at 23:30 Acetaminophen (Tylenol Tab) 650 mg Q6H PRN PO PAIN LEVEL 1-3 OR FEVER; Start at 23:30 Enoxaparin Sodium (Lovenox) 40 mg DAILY SC Last administered on 09/13/16 09:48 ; Admin Dose 40 MG; Start 09/11/16 at 09:00 Hydromorphone HCl 1 mg 1 mg Q2 PRN IV SEVERE PAIN LEVEL 7-10 Last administered on 09/14/16 22:13; Admin Dose 1 MG; Start 09/11/16 at 09:00 Potassium Chloride/Dextrose/ Sod Cl (D5-1/2ns + KCl 20 Meq) 1,000 ml @ 100 mls/ hr Q10H IV Last administered on 09/14/16 11:05; Admin Dose 100 MLS/HR; Start at 09:30 Acetaminophen/ Hydrocodone Bitart ([place] (5/325)) 1 tab Q4H PRN PO PAIN LEVEL 4 -7; Start 09/14/16 at 09:30 Acetaminophen/ Hydrocodone Bitart ([place] (5/325)) 2 tab Q4H PRN PO PAIN LEVEL 7 -10; Start 09/14/16 at 09:30 Hydromorphone HCl (Dilaudid) 0.5 mg Q2H PRN IV PAIN; Start 09/14/16 at 09:30 Hydromorphone HCl (Dilaudid) 1 mg Q2H PRN IV PAIN; Start 09/14/16 at 09:30 Docusate Sodium (Colace) 100 mg BID PRN PO CONSTIPATION; Start 09/14/16 at 09:30 Bisacodyl (Dulcolax Supp) 10 mg BID PRN [place] CONSTIPATION; Start 09/14/16 at 09:30 Sodium Biphosphate/ Sodium Phosphate (Fleet Enema) 133 ml BID PRN [place] CONSTIPATION; Start 09/14/16 at 09:30 ETHEL JAMIL MD Sep 14, 2016 23:40
[2016-09-15 00:03] VITALS: BP 115/58; RESP 18
[2016-09-15] MEDS: HYDROmorphONE 1 MG/ML SYG IV PRN ×2 (01:13→09:44)
[2016-09-15] MEDS: D5W-0.45 NACL + KCL 20 MEQ 1,000 ML IV SCH (03:12)
[2016-09-15 04:00] VITALS: BP 130/76; PULSE 100; RESP 20
[2016-09-15 06:10] LABS: ADD SCAN DIFF NO
[2016-09-15 06:30] LABS: INR 1.44; PROTIME 17.6 Sec (12.2-14.2); PT RATIO 1.4
[2016-09-15 06:31] LABS: PARTIAL THROMBOPLASTIN TIME 26.2 Sec (25.0-35.0)
[2016-09-15 06:41] LABS: ALBUMIN 3.1 g/dl (3.3-4.9); ALBUMIN/GLOBULIN RATIO 1.19; BILIRUBIN,INDIRECT 1.9 mg/dl (0-1.1); BILIRUBIN,TOTAL 1.9 mg/dl (0.2-1.3); CALCIUM 8.5 mg/dl (8.4-10.2); CREATININE 1.04 mg/dl (0.61-1.24); MAGNESIUM 1.4 mg/dl (1.7-2.5); PHOSPHORUS 3.4 mg/dl (2.5-4.9); TOTAL PROTEIN 5.7 g/dl (6.1-8.1)
[2016-09-15 07:21] LABS: BASOPHILS % 0.3 % (0.0-2.0); EOSINOPHILS # 0.1 10^3/ul (0.0-0.5); HEMATOCRIT 32.4 % (42.0-52.0); HEMOGLOBIN 11.3 g/dl (14.0-18.0); LYMPHOCYTES # 1.7 10^3/ul (0.8-2.9); LYMPHOCYTES % 15.4 % (15.0-51.0); MEAN CORPUSCULAR HGB CONC 34.9 g/dl (32.0-37.0); MEAN CORPUSCULAR VOLUME 100.3 fl (82.0-101.0); MEAN PLATELET VOLUME 8.9 fl (7.4-10.4); MONOCYTES % 9.4 % (0.0-11.0); NEUTROPHIL # 8.1 10^3/ul (1.6-7.5); NEUTROPHILS % 73.4 % (39.0-77.0); PLATELET COUNT 283 10^3/UL (140-415); RED BLOOD COUNT 3.23 10^6/ul (4.70-6.10); RED CELL DISTRIBUTION WIDTH 15.5 % (11.5-14.5)
[2016-09-15 08:07] VITALS: BP 115/68; RESP 19
[2016-09-15] MEDS: ENOXAPARIN 40 MG/0.4 ML SYG SC SCH (09:45)
--- NOTE | 2016-09-15 13:52 | PN ---
Date/Time of Note Date/Time of Note DATE: 09/15/16 TIME: 13:49 Assessment/Plan Lines/Catheters IV Catheter Type (from Nrs): Peripheral IV Gordillo in Place (from Nrs): No Assessment/Plan Assessment/Plan [facility] Progress Note Date of Service: 09/15/2016 Today's Impression & Plan: Overall stable with improved post lap christy. Abd benign. Ok to d/c home from my standpoint. With above assessment, I've recommended the following for today: 1. D/c home 2. Please include the following in d/c instructions: Please call [phone] if any of fever, nausea, vomiting, discharge from wound , wound redness, increase or sudden pain, blood in stool or vomit, or any other unusual signs or symptoms. Also, please call the same number in a few days to schedule an appointment for your follow up visit. Patient may remove dressings tomorrow. Showers OK starting tomorrow. No swimming , hot tub or bath for 2 weeks. No lifting more than 25 lbs for 8 weeks. Thank you again for your great care of this very pleasant patient and wonderful family. If there are any questions, please feel free to call me at [phone]. TOTAL VISIT TIME: 20 minutes of which more than half was spent in [id number] discussion with the patient, possibly including family, as well as coordination of care between multiple physicians and providers. Disclaimer: Inadvertent spelling or grammatical errors are likely due to EHR/ dictation software use and do not reflect on the overall quality of patient care. Updated Clinical Summary: The patient is a very-pleasant 51-year-old gentleman, well known to me from prior admission in Mar 2015, when he was diagnosed with liver malignancy, currently being maintained on chemo therapy, presenting with abdominal pain associated with cholelithiasis. + N/V; + hand/foot syndrome from chemo; no radiation; able to tolerate food and does not appear to be linked with type of food. HIDA scan + 09/13/16. S/p lap christy 09/15/15 at [facility]. Comorbidities: 1. Liver mass, diagnosed and treated as HCC 2. Appendectomy as a child 3. S/p lap christy 09/14/16 Subjective: No major events or complaints; incisional pain and requires pain medications; no n/v/d; no sob or cp; + flatus; + BM and normal; + activity Objective: Vitals: See below Exam: GENERAL: On exam, the patient was laying in bed and appeared to be comfortable and in no acute distress. ABDOMEN: Soft, mildly tender in the right upper quadrant and nondistended. Incisions dressings c/d/i w/o underlying e/e/d/h. There are no peritoneal signs or guarding. SKIN: Skin appears to be pink and feels warm to touch. NEUROLOGIC: Patient is awake, alert, and follows commands appropriately. Exam/Review of Systems Vital Signs Vitals Vital Signs Date Time Temp Pulse Resp B/P Pulse Ox O2 Delivery O2 Flow Rate FiO2 09/15/16 08:07 98.4 100 19 115/68 94 09/15/16 04:00 Room Air Intake and Output 09/14/16 09/14/16 09/15/16 15:00 23:00 07:00 Intake Total 500 ml 800 ml 1200 ml Output Total 5 ml 800 ml Balance 495 ml 800 ml 400 ml Results Result Diagram: 09/15/16 0536 09/15/16 0536 TREY TRUONG M.D. Sep 15, 2016 13:52
--- NOTE | 2016-09-15 13:59 | PDOCDIS ---
Discharge Instructions CONDITION Patient Condition: Stable HOME CARE INSTRUCTIONS: Special Diet: CLD ACTIVITY: Activity Restrictions: Slowly Increase Activity Rest between Activity Do not operate Machinery Do not operate Power Tool Avoid Heavy Housework Bathing Restrictions: Sponge Bath FOLLOW UP/APPOINTMENTS Appointments FU with Primary in 1 week FU with SURGERY as recommended. zenobia Banks OTHER ORDERS: Other Orders: Please call [phone] if any of fever, nausea, vomiting, discharge from wound , wound redness, increase or sudden pain, blood in stool or vomit, or any other unusual signs or symptoms. Also, please call the same number in a few days to schedule an appointment for your follow up visit. Patient may remove dressings tomorrow. Showers OK starting tomorrow. No swimming , hot tub or bath for 2 weeks. No lifting more than 25 lbs for 8 weeks. SCHOOL/WORK RELEASE May return to School/Work on: Sep 15, 2016 AYSHA KATZ Sep 15, 2016 13:59
[2016-09-15] MEDS ORDERED: MAGNESIUM SULFATE 1 GM/D5W 100 ML IVPB ONE (14:00)
[2016-09-15] MEDS ORDERED: PANT40TA3 PO (14:36)
[2016-09-15] MEDS ORDERED: DOCU-216 PO (14:36)
--- NOTE | 2016-09-15 14:38 | DS ---
Date/Time of Note Date/Time of Note DATE: 09/15/16 TIME: 14:38 Discharge Summary Admission/Discharge Info Admit Date/Time Sep 10, 2016 at 19:45 Discharge Date/Time Patient Condition: Stable Hx of Present Illness The patient is a 51-year-old male, presenting to the ER because of upper abdominal pain, no aggravating or relieving factor, associated with fever of 101 and vomiting since last night. He denies similar symptoms previously, denies chest pain, dyspnea, dysuria, diarrhea, constipation. He does not smoke or drink. He has Hepatocellular Carcinoma, diagnosed 2 years ago, currently on oral Chemotherapy which is causing a dermatitis of the palms of his hands and the soles of his feet. Saw his Oncologist earlier today, and his dose was cut from 4 pills BID to 1 pill BID. He also has Crohn's Disease. He was hospitalized here about 2 months ago with similar symptoms, but he denies ever having Pancreatitis. However, when I review the admit from 2016 , He was specifically diagnosed with Acute Pancreatitis. While in the ED, he was treated with dilated Dilaudid 1 mg IV 2 for pain and Zofran 4 mg IV 1 for nausea and normal saline 30 mL/kg IV for acute clinical dehydration and Zosyn IV empirically with good response. Hospital Course - Hepatocellular carcinoma. treated with Xeloda. chemo - on hold - Gallstone pancreatitis, Symptomatic biliary colic with cholelithiasis Dr. Ferreira is asked to see patient in gastroenterology consultation. hida- + POST LAP MASON, AND WEDGE RESECTION OF LIVER LEUKOCYTOSIS- RESOLVED REACTIVE ANEMIA- COMPLEX MONITOR Home Meds Active Scripts Pantoprazole* (Protonix*) 40 Mg Tablet., 40 MG PO DAILY, #20 TAB Prov:AYSHA KATZ 09/15/16 Docusate Sodium (Dok) 100 Mg Capsule, 100 MG PO BID Y for CONSTIPATION for 30 Days, CAP Prov:AYSHA KATZ 09/15/16 Reported Medications Hydrocodone/Acetaminophen ([place] 10-325 Tablet) 1 Each Tablet, 1 EACH PO Q4H, TAB 09/10/16 Capecitabine* (Xeloda*) 500 Mg Tablet, 2000 MG PO BID, TAB 07/24/16 Discontinued Scripts Cephalexin* (Keflex*) 500 Mg Capsule, 500 MG PO QID for 7 Days, CAP Prov:MARKO SARAVIA PA-C 05/04/16 Sulfamethoxazole-Trimethoprim* (Bactrim* DS) 800-160 Mg Tab, 1 TAB PO DAILY for 7 Days, TAB Prov:MARKO SARAVIA PA-C 05/04/16 Ciprofloxacin Hcl* (Ciprofloxacin Hcl*) 500 Mg Tablet, 500 MG PO BID for 7 Days , TAB Prov:JORGE NAIR PA-C 04/25/16 Cyclobenzaprine Hcl* (Cyclobenzaprine Hcl*) 10 Mg Tablet, 10 MG PO TID, #15 TAB Prov:PHILIP DUFF NP 11/21/15 Ibuprofen* (Motrin*) 600 Mg Tab, 600 MG PO Q6H Y for PAIN AND OR ELEVATED TEMP, #30 TAB Prov:PHILIP DUFF NP 11/21/15 Hydrocodone Bit-Acetaminophen* ([place]*) 5-325 Mg Tab, 1 TAB PO Q6 Y for PAIN, # 20 TAB Prov:PHILIP DUFF NP 11/21/15 Hydrocodone Bit-Acetaminophen* ([place]*) 7.5-325 Tablet, 1 TAB PO Q4H Y for PAIN , #20 TAB Prov:CONNOR CUMMINS DO 08/19/15 Dicyclomine Hcl* (Bentyl*) 20 Mg Tablet, 20 MG PO QID, #30 TAB Prov:CONNOR CUMMINS DO 08/19/15 Ondansetron Hcl* (Zofran* ODT) 4 mg -ODT Tab.disper, 4 MG PO Q6 Y for NAUSEA AND /OR VOMITING, #10 TAB Prov:CONNOR CUMMINS DO 08/19/15 Pending Labs Laboratory Tests Test 09/15/16 05:36 White Blood Count 11.010^3/ul (4.8-10.8) Red Blood Count 3.2310^6/ul (4.70-6.10) Hemoglobin 11.3g/dl (14.0-18.0) Hematocrit 32.4% (42.0-52.0) Mean Corpuscular Volume 100.3fl (82.0-101.0) Mean Corpuscular Hemoglobin 35.0pg (29.0-33.0) Mean Corpuscular Hemoglobin Concent 34.9g/dl (32.0-37.0) Red Cell Distribution Width 15.5% (11.5-14.5) Platelet Count 97579^3/UL (140-415) Mean Platelet Volume 8.9fl (7.4-10.4) Neutrophils % 73.4% (39.0-77.0) Lymphocytes % 15.4% (15.0-51.0) Monocytes % 9.4% (0.0-11.0) Eosinophils % 1.0% (0.0-7.0) Basophils % 0.3% (0.0-2.0) Nucleated Red Blood Cells % 0.0/100WBC (0.0-0.0) Neutrophils # 8.110^3/ul (1.6-7.5) Lymphocytes # 1.710^3/ul (0.8-2.9) Monocytes # 1.010^3/ul (0.3-0.9) Eosinophils # 0.110^3/ul (0.0-0.5) Basophils # 0.010^3/ul (0.0-0.1) Nucleated Red Blood Cells # 0.010^3/ul (0.0-0.0) Prothrombin Time 17.6Sec (12.2-14.2) Prothrombin Time Ratio 1.4 INR International Normalized Ratio 1.44 Activated Partial Thromboplast Time 26.2Sec (25.0-35.0) Sodium Level 130mmol/L (135-144) Potassium Level 4.0mmol/L (3.5-5.1) Chloride Level 98mmol/L (97-110) Carbon Dioxide Level 26mmol/L (21-31) Anion Gap 10 (8-16) Blood Urea Nitrogen 10mg/dl (7-20) Creatinine 1.04mg/dl (0.61-1.24) Glucose Level 129mg/dl (70-220) Lactic Acid Level 1.2mmol/L (0.5-2.2) Calcium Level 8.5mg/dl (8.4-10.2) Phosphorus Level 3.4mg/dl (2.5-4.9) Magnesium Level 1.4mg/dl (1.7-2.5) Total Bilirubin 1.9mg/dl (0.2-1.3) Direct Bilirubin 0.00mg/dl (0.00-0.20) Indirect Bilirubin 1.9mg/dl (0-1.1) Aspartate Amino Transf (AST/SGOT) 46IU/L (15-46) Alanine Aminotransferase (ALT/SGPT) 48IU/L (13-69) Alkaline Phosphatase 85IU/L (42-121) B-Type Natriuretic Peptide 195PG/ML (0-125) Total Protein 5.7g/dl (6.1-8.1) Albumin 3.1g/dl (3.3-4.9) Globulin 2.60g/dl (1.3-3.2) Albumin/Globulin Ratio 1.19 AYSHA KATZ Sep 15, 2016 14:38
--- NOTE | 2016-09-15 23:13 | CONS ---
Date/Time of Note Date/Time of Note DATE: 09/15/16 TIME: 12:11 Assessment/Plan Assessment/Plan Chief Complaint/Hosp Course - Hepatocellular carcinoma. treated with Xeloda. chemo - on hold - Gallstone pancreatitis, Symptomatic biliary colic with cholelithiasis Dr. Ferreira is asked to see patient in gastroenterology consultation. hida- + POST LAP MASON, AND WEDGE RESECTION OF LIVER LEUKOCYTOSIS- RESOLVED REACTIVE ANEMIA- COMPLEX MONITOR OK TO DC Problems: Consultation Date/Type/Reason Admit Date/Time Sep 10, 2016 at 19:45 24 HR Interval Summary Free Text/Dictation ALL NOTED D/W PT FELLING BETTER Exam/Review of Systems Vital Signs Vitals Vital Signs Date Time Temp Pulse Resp B/P Pulse Ox O2 Delivery O2 Flow Rate FiO2 09/15/16 08:07 98.4 100 19 115/68 94 09/15/16 04:00 Room Air Intake and Output 09/14/16 09/14/16 09/15/16 15:00 23:00 07:00 Intake Total 500 ml 800 ml 1200 ml Output Total 5 ml 800 ml Balance 495 ml 800 ml 400 ml Exam GENERAL: On exam, the patient was laying in bed and appeared to be comfortable and in no acute distress. ABDOMEN: Soft, mildly tender in the right upper quadrant and nondistended. Incisions dressings c/d/i w/o underlying e/e/d/h. There are no peritoneal signs or guarding. SKIN: Skin appears to be pink and feels warm to touch. NEUROLOGIC: Patient is awake, alert, and follows commands appropriately. Results Result Diagram: 09/15/16 0536 09/15/16 0536 Results 24 hrs Laboratory Tests Test 09/15/16 05:36 White Blood Count 11.0 #H Red Blood Count 3.23 L Hemoglobin 11.3 L Hematocrit 32.4 L Mean Corpuscular Volume 100.3 Mean Corpuscular Hemoglobin 35.0 H Mean Corpuscular Hemoglobin Concent 34.9 Red Cell Distribution Width 15.5 H Platelet Count 283 Mean Platelet Volume 8.9 Neutrophils % 73.4 Lymphocytes % 15.4 Monocytes % 9.4 Eosinophils % 1.0 Basophils % 0.3 Nucleated Red Blood Cells % 0.0 Neutrophils # 8.1 H Lymphocytes # 1.7 Monocytes # 1.0 H Eosinophils # 0.1 Basophils # 0.0 Nucleated Red Blood Cells # 0.0 Prothrombin Time 17.6 H Prothrombin Time Ratio 1.4 INR International Normalized Ratio 1.44 Activated Partial Thromboplast Time 26.2 Sodium Level 130 L Potassium Level 4.0 Chloride Level 98 Carbon Dioxide Level 26 Anion Gap 10 Blood Urea Nitrogen 10 Creatinine 1.04 Glucose Level 129 Lactic Acid Level 1.2 Calcium Level 8.5 Phosphorus Level 3.4 Magnesium Level 1.4 L Total Bilirubin 1.9 H Direct Bilirubin 0.00 Indirect Bilirubin 1.9 H Aspartate Amino Transf (AST/SGOT) 46 Alanine Aminotransferase (ALT/SGPT) 48 Alkaline Phosphatase 85 B-Type Natriuretic Peptide 195 H Total Protein 5.7 L Albumin 3.1 L Globulin 2.60 Albumin/Globulin Ratio 1.19 ETHEL JAMIL MD Sep 15, 2016 23:13
== END 2016-09-15 15:49 | disposition home or self-care (01) | DRG 418 ==
LOC: E/R 12:49 → PP2 19:45
PROVIDERS: ADMIT Internal Medicine; ATTEND Internal Medicine
PROC: 0FT44ZZ Resection of Gallbladder, Percutaneous Endoscopic Approach (ICD-10-PCS; principal; 2016-09-10)
PROC: 0FB04ZX Excision of Liver, Percutaneous Endoscopic Approach, Diagnostic (ICD-10-PCS; 2016-09-10)
DX: K85.10 Biliary acute pancreatitis without necrosis or infection (principal); C22.0 Liver cell carcinoma; K81.0 Acute cholecystitis; K50.90 Crohn's disease, unspecified, without complications; K21.9 Gastro-esophageal reflux disease without esophagitis; D63.8 Anemia in other chronic diseases classified elsewhere; K80.51 Calculus of bile duct without cholangitis or cholecystitis with obstruction; K80.20 Calculus of gallbladder without cholecystitis without obstruction; L27.0 Generalized skin eruption due to drugs and medicaments taken internally; Z79.899 Other long term (current) drug therapy; Z92.21 Personal history of antineoplastic chemotherapy; T45.1X5A Adverse effect of antineoplastic and immunosuppressive drugs, initial encounter
CPT/HCPCS: 36415; 71010; 74177; 74181; 76705; 78226; 80048; 80053; 81001; 81003; 82105; 83605; 83690; 83735; 83880; 84100; 84484; 85025; 85610; 85730; 87040; 87045; 87086; 88304; 88307; 88313; 88341; 88342; 93005; 96365; 96375; 96376; A9537; J0330; J0690; J1170; J1650; J2175; J2405; J2543; J2710; J3010; J3475; J3480; J7030; Q9967

== ENCOUNTER 2016-09-26 15:14 | Outpatient (CLI) | payer MEDICAID ==
[~2016-09-26] VITALS: Ht 167.6 cm; Wt 89.1 kg
[~2016-09-26 15:14] MED LIST changes: -BACTDS PO; -CEPH-443 PO; -CIPR500T4 PO; -CYCL-319 PO; -DICY20TA59 PO; +DOCU-216 PO; -HYDR-3498 PO; -HYDR-3720 PO; +HYDR-902 PO; -IBUP-1542 PO; -ONDA4TAB35 PO; +PANT40TA3 PO
[2016-09-26 15:28] VITALS: BP 129/78; PULSE 93; RESP 16; Ht 167.6 cm; Wt 89.1 kg
--- NOTE | 2016-09-26 16:31 | PN ---
Date/Time of Note Date/Time of Note DATE: 09/26/16 TIME: 16:18 Assessment/Plan Assessment/Plan Assessment/Plan [facility] Progress Note Date of Service: 09/26/2016 Today's Impression & Plan: Overall stable and doing relatively well post lap christy. Abd benign. 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 This is likely from small intestine origin (which would explain patient's symptoms of diarrhea, likely misdiagnosed as Crohn's dz at [facility]). Aggressive surgical approach is acceptable in this clinical picture with the goal of rendering patient disease free of known disease. I consented the patient for the operation and answered all questions. Also wrote for 20 Tylenol #3's to help him sleep at night. With above assessment, I've recommended the following for today: 1. Stop Xeloda 2. Schedule patient for laparoscopic, possible open, partial hepatectomy with IOUS, possible bowel resection for 3-4 weeks from now Thank you again for your great care of this very pleasant patient and wonderful family. If there are any questions, please feel free to call me at [phone]. TOTAL VISIT TIME: 20 minutes of which more than half was spent in [id number] discussion with the patient, possibly including family, as well as coordination of care between multiple physicians and providers. Disclaimer: Inadvertent spelling or grammatical errors are likely due to EHR/ dictation software use and do not reflect on the overall quality of patient care. Updated Clinical Summary: The patient is a very-pleasant 51-year-old gentleman, well known to me from prior admission in Mar 2015, when he was diagnosed with liver malignancy, currently being maintained on chemo therapy, presenting with abdominal pain associated with cholelithiasis. + N/V; + hand/foot syndrome from chemo; no radiation; able to tolerate food and does not appear to be linked with type of food. HIDA scan + 09/13/16. S/p lap christy 09/15/15 at [facility]. Final liver biopsy c/w NE tumor. Comorbidities: 1. Liver mass, diagnosed and treated as HCC 2. Appendectomy as a child 3. S/p lap christy 09/14/16; final liver biopsy c/w NE tumor Subjective: No major events or complaints; incisional pain and requires pain medications only at night to help him sleep; no n/v/d; no sob or cp; + flatus; + BM and normal with diarrhea intermittently; + activity Objective: Vitals: See below Exam: GENERAL: On exam, the patient was sitting in a chair and appeared to be comfortable and in no acute distress. ABDOMEN: Soft, none to mildly tender in the right upper quadrant and nondistended. Incisions c/d/i w/o underlying e/e/d/h. There are no peritoneal signs or guarding. SKIN: Skin appears to be pink and feels warm to touch. NEUROLOGIC: Patient is awake, alert, and follows commands appropriately. Exam/Review of Systems Vital Signs Vitals Vital Signs Date Time Temp Pulse Resp B/P Pulse Ox O2 Delivery O2 Flow Rate FiO2 09/26/16 15:28 97.9 93 16 129/78 99 Room Air TREY TRUONG M.D. Sep 26, 2016 16:31
== END 2016-09-26 16:31 | disposition home or self-care (01) ==
LOC: HPC 15:14
PROVIDERS: ATTEND Transplant Surgery
DX: Z09 Encounter for follow-up examination after completed treatment for conditions other than malignant neoplasm (principal); C22.0 Liver cell carcinoma; Z90.49 Acquired absence of other specified parts of digestive tract; Z87.19 Personal history of other diseases of the digestive system
CPT/HCPCS: G0463

== ENCOUNTER 2016-10-24 22:08 | Emergency (ER) | payer SELFPAY ==
[~2016-10-24] VITALS: Ht 162.6 cm; Wt 97.0 kg
[~2016-10-24 22:08] MED LIST changes: -HYDR-902 PO
[2016-10-24 22:13] VITALS: Ht 162.6 cm; Wt 97.0 kg
[2016-10-25] MEDS ORDERED: ACET-141 PO (05:15)
[2016-10-25] MEDS ORDERED: ONDA4TAB8 PO (06:20)
[2016-10-25] MEDS ORDERED: OXYC-279 PO (06:20)
== END 2016-10-25 00:11 | disposition left against medical advice (07) ==
LOC: E/R 22:08
DX: Z53.21 Procedure and treatment not carried out due to patient leaving prior to being seen by health care provider (principal)

== ENCOUNTER 2016-10-25 04:47 | Emergency (ER) | payer BC ==
[~2016-10-25] VITALS: Ht 167.6 cm; Wt 96.5 kg
[2016-10-25 04:51] VITALS: Ht 167.6 cm; Wt 96.5 kg
[2016-10-25] MEDS ORDERED: METOCLOPRAMIDE 10 MG INJ IV STA (05:02)
[2016-10-25] MEDS ORDERED: FAMOTIDINE 20 MG TAB PO STA (05:02)
[2016-10-25] MEDS ORDERED: SOD CHLORIDE 0.9% 500 ML IV STA (05:02)
[2016-10-25] MEDS ORDERED: ACET-141 PO (05:15)
[2016-10-25 05:29] LABS: ADD SCAN DIFF NO
--- NOTE | 2016-10-25 05:34 | RADRPT ---
PROCEDURE: CT Brain without contrast. CLINICAL INDICATION: Headache TECHNIQUE: Axial images from the skull base through the vertex without IV contrast. Multiplanar r eformatted images were made. Images were reviewed on a PACS workstation. The CTDIvol is 45.01 mGy and the DLP is 720.23 mGycm. One or more of the following dose reduction techniques were used: auto mated exposure control, adjustment of the mA and/or kV according to patient size, or use of iterativ e reconstruction technique. COMPARISON: None. 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 The cisterns are unremarkable in appearance. No Chiari malformation is seen. There is no evidence for territorial infarction or intracranial hemorrhage. No definite intracranial mass or midline shift. The visualized paranasal sinuses and mastoids are clear. IMPRESSION: No definite acute abnormality. 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 No definite Ch iari malformation. RPTAT: [facility] Physician Peace Date Time Electronically viewed and signed by Physician Peace on 10/25/2016 05:33 NATHANIEL/
[2016-10-25 05:37] LABS: ADD UMIC NO; URINE BILIRUBIN (Dip) NEGATIVE (NEGATIVE); URINE BLOOD (Dip) NEGATIVE (NEGATIVE); URINE COLOR LT. YELLOW (YELLOW); URINE GLUCOSE (Dip) NEGATIVE (NEGATIVE); URINE KETONES (Dip) NEGATIVE (NEGATIVE); URINE LEUKOCYTE ESTERASE (Dip) NEGATIVE (NEGATIVE); URINE NITRITE (Dip) NEGATIVE (NEGATIVE); URINE TOTAL PROTEIN (Dip) NEGATIVE (NEGATIVE); URINE UROBILINOGEN (Dip) 0.2 E.U./dL (0.1-1.0)
[2016-10-25 05:38] LABS: BASOPHIL # 0.1 10^3/ul (0.0-0.1); BASOPHILS % 0.8 % (0.0-2.0); EOSINOPHILS # 0.7 10^3/ul (0.0-0.5); EOSINOPHILS % 7.5 % (0.0-7.0); HEMATOCRIT 40.4 % (42.0-52.0); HEMOGLOBIN 13.7 g/dl (14.0-18.0); LYMPHOCYTES # 3.2 10^3/ul (0.8-2.9); LYMPHOCYTES % 32.7 % (15.0-51.0); MEAN CORPUSCULAR HEMOGLOBIN 32.8 pg (29.0-33.0); MEAN CORPUSCULAR HGB CONC 33.9 g/dl (32.0-37.0); MEAN CORPUSCULAR VOLUME 96.7 fl (82.0-101.0); MEAN PLATELET VOLUME 9.2 fl (7.4-10.4); MONOCYTE # 0.9 10^3/ul (0.3-0.9); MONOCYTES % 8.9 % (0.0-11.0); NEUTROPHIL # 4.9 10^3/ul (1.6-7.5); NEUTROPHILS % 49.6 % (39.0-77.0); PLATELET COUNT 277 10^3/UL (140-415); RED BLOOD COUNT 4.18 10^6/ul (4.70-6.10); RED CELL DISTRIBUTION WIDTH 12.5 % (11.5-14.5); WHITE BLOOD COUNT 9.9 10^3/ul (4.8-10.8)
[2016-10-25 05:45] LABS: INR 1.01; PROTIME 13.3 Sec (12.2-14.2)
[2016-10-25 05:52] LABS: ALBUMIN/GLOBULIN RATIO 1.21; BILIRUBIN,INDIRECT 0.3 mg/dl (0-1.1); BILIRUBIN,TOTAL 0.3 mg/dl (0.2-1.3); CALCIUM 9.4 mg/dl (8.4-10.2); CREATININE 0.99 mg/dl (0.61-1.24); TOTAL PROTEIN 7.3 g/dl (6.1-8.1)
[2016-10-25] MEDS ORDERED: HYDROmorphONE 1 MG/ML SYG IV STA (06:18)
[2016-10-25] MEDS ORDERED: ONDANSETRON 4 MG INJ IV STA (06:18)
[2016-10-25] MEDS ORDERED: ONDA4TAB8 PO (06:20)
[2016-10-25] MEDS ORDERED: OXYC-279 PO (06:20)
--- NOTE | 2016-10-25 06:25 | ERD ---
ER Documentation Chief Complaint Date/Time DATE: 10/25/16 TIME: 06:23 Chief Complaint abd pain, diarrhea, vomiting, hx LIVERCA 4th stage w/ chemo HPI 51-year-old man complains of epigastric abdominal pain and diarrhea 2 days with nausea. He denies vomiting, no fevers or chills, no blood per rectum or weight loss. Patient has a recent history of hepatocellular carcinoma status post partial surgical resection and uses oral chemotherapy daily. He has had no chest pain or shortness of breath, no headache or blurry vision, no paresthesias, no loss of consciousness. ROS All systems reviewed and are negative except as per history of present illness. Medications Home Meds Active Scripts Ondansetron Hcl* (Zofran*) 4 Mg Tablet, 4 MG PO TID for NAUSEA, #30 TAB Prov:RODGER BACON MD 10/25/16 Oxycodone HCl/Acetaminophen (Percocet 5-325 mg Tablet) 1 Each Tablet, 1 EACH PO TID for PAIN, #30 TAB Prov:RODGER BACON MD 10/25/16 Reported Medications Acetaminophen* (Acetaminophen*) 500 MG Extra Strength Tablet, 500 MG PO Q4H Y for PAIN AND OR ELEVATED TEMP, TAB 10/25/16 Capecitabine* (Xeloda*) 500 Mg Tablet, 2000 MG PO BID, TAB 07/24/16 Discontinued Scripts Pantoprazole* (Protonix*) 40 Mg Tablet.dr, 40 MG PO DAILY, #20 TAB Prov:AYSHA KATZ 09/15/16 Docusate Sodium (Dok) 100 Mg Capsule, 100 MG PO BID Y for CONSTIPATION for 30 Days, CAP Prov:AYSHA KATZ 09/15/16 Allergies Allergies: Coded Allergies: ibuprofen (Unverified Allergy, Mild, CHEMO PT, BLEEDING RISK, 10/25/16) PMhx/Soc Hypertension, gastritis, hepatocellular carcinoma History of Surgery: Yes (appendectomy, small surgery on penis-skin removed 08/24 ) Anesthesia Reaction: No Hx Neurological Disorder: No Hx Respiratory Disorders: No Hx Cardiac Disorders: No Hx Psychiatric Problems: No Hx Miscellaneous Medical Probl: Yes (anemia ) Hx Alcohol Use: Yes (Socially ) Hx Substance Use: No Hx Tobacco Use: No Smoking Status: Never smoker FmHx Family History: No diabetes Physical Exam Vitals Vital Signs Date Time Temp Pulse Resp B/P Pulse Ox O2 Delivery O2 Flow Rate FiO2 10/25/16 06:58 76 16 112/78 97 Room Air 10/25/16 06:08 74 17 119/79 97 Room Air 10/25/16 04:51 98.6 87 20 131/87 98 Physical Exam GENERAL: Well-developed, well-nourished, well-hydrated, in no apparent distress , looks nontoxic in appearance HEENT: Moist mucous membranes, pink conjunctiva, no cervical spine tenderness or step-off deformities, no goiter, no jaundice or icterus, extraocular movements intact without pain. No submandibular induration, and no pharyngeal erythema NEURO: Alert and oriented 3, cranial nerves II through XII intact bilaterally, pupils equal round reactive to light, no focal deficits or facial asymmetry, sensation intact distally Strength 5/5 in upper and lower extremities bilaterally CARDIAC: Regular rate and rhythm, no murmurs rubs or gallops LUNGS: Clear bilaterally no wheezing crackles or stridor ABDOMEN: Soft nontender, no guarding, no rigidity, no rebound, no psoas sign no obturator sign. Normoactive bowel sounds SKIN: Warm and dry to touch, no abrasions, contusions, or hematomas, no lacerations, no ecchymosis, no target lesions, and without ulcers EXTREMITIES: No clubbing cyanosis or edema, calves are bilaterally symmetrical, no Homans sign, no popliteal cord sign. Distal pulses equal and bilateral PSYCH: Normal affect without agitation or irritability Result Diagram: 10/25/1651210/25/1613 Results 24 hrs Laboratory Tests Test 10/25/16 05:13 White Blood Count 9.910^3/ul Red Blood Count 4.1810^6/ul Hemoglobin 13.7g/dl Hematocrit 40.4% Mean Corpuscular Volume 96.7fl Mean Corpuscular Hemoglobin 32.8pg Mean Corpuscular Hemoglobin Concent 33.9g/dl Red Cell Distribution Width 12.5% Platelet Count 24660^3/UL Mean Platelet Volume 9.2fl Neutrophils % 49.6% Lymphocytes % 32.7% Monocytes % 8.9% Eosinophils % 7.5% Basophils % 0.8% Nucleated Red Blood Cells % 0.0/100WBC Neutrophils # 4.910^3/ul Lymphocytes # 3.210^3/ul Monocytes # 0.910^3/ul Eosinophils # 0.710^3/ul Basophils # 0.110^3/ul Nucleated Red Blood Cells # 0.010^3/ul Prothrombin Time 13.3Sec Prothrombin Time Ratio 1.0 INR International Normalized Ratio 1.01 Urine Color LT. YELLOW Urine Clarity CLEAR Urine pH 5.0 Urine Specific [place] 1.025 Urine Ketones NEGATIVE Urine Nitrite NEGATIVE Urine Bilirubin NEGATIVE Urine Urobilinogen 0.2 E.U./dL Urine Leukocyte Esterase NEGATIVE Urine Hemoglobin NEGATIVE Urine Glucose NEGATIVE% Urine Total Protein NEGATIVE Sodium Level 137mmol/L Potassium Level 4.0mmol/L Chloride Level 103mmol/L Carbon Dioxide Level 25mmol/L Anion Gap 13 Blood Urea Nitrogen 14mg/dl Creatinine 0.99mg/dl Glucose Level 128mg/dl Calcium Level 9.4mg/dl Total Bilirubin 0.3mg/dl Direct Bilirubin 0.00mg/dl Indirect Bilirubin 0.3mg/dl Aspartate Amino Transf (AST/SGOT) 30IU/L Alanine Aminotransferase (ALT/SGPT) 46IU/L Alkaline Phosphatase 75IU/L Total Protein 7.3g/dl Albumin 4.0g/dl Globulin 3.30g/dl Albumin/Globulin Ratio 1.21 Lipase 246U/L Current Medications Medications (Trade) Dose Ordered Sig/Beny Route PRN Reason Start Time Stop Time Status Last Admin Dose Admin Sodium Chloride (NS) 500 ml @ 500 mls/hr Q1H STAT IV 10/25/16 05:02 10/25/16 06:01 DC 10/25/16 05:21 Metoclopramide HCl (Reglan) 10 mg ONCE STAT IV 10/25/16 05:02 10/25/16 05:03 DC 10/25/16 05:20 Famotidine (Pepcid) 20 mg ONCE STAT PO 10/25/16 05:02 10/25/16 05:03 DC 10/25/16 05:21 Hydromorphone HCl (Dilaudid) 1 mg ONCE STAT IV 10/25/16 06:18 10/25/16 06:19 DC 10/25/16 06:30 Ondansetron HCl (Zofran Inj) 4 mg ONCE STAT IV 10/25/16 06:18 10/25/16 06:19 DC 10/25/16 06:30 Procedures/MDM IV line was established 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 Patient was afebrile. I administered 1 L normal saline intravenously, hydromorphone 1 mg IV, and Zofran 4 mg IV with excellent effect. CBC and electrolytes are normal, liver function tests were normal, troponin was negative. CT scan of the brain was negative for acute mass, bleed, or shift. Please refer to radiologist dictation for full report. Patient initially also received famotidine 20 mg p.o. and metoclopramide 10 mg IV. Differential diagnoses considered, included but not limited to acute coronary syndrome, pulmonary embolism, aortic dissection, abdominal aortic aneurysm, sepsis, stroke, meningitis, encephalitis, pneumonia, appendicitis, cholecystitis , bowel obstruction, pyelonephritis, nephrolithiasis, cystitis, as well as metabolic, hematologic, and electrolyte abnormalities. As well as abscess, cellulitis, fractures, and dislocations. Patient feels much better at this time, and vital signs are normal, symptoms have improved. I did give strict instructions to return to the ED if symptoms continue or worsen, patient will otherwise follow-up with primary care physician. Patient understood instructions and agreed to plan. Departure Diagnosis: Primary Impression: Liver mass Additional Impression: Dizziness Condition: Good Patient Instructions: Chronic Pain, Dizziness, Unk Cause RODGER BACON MD October 25, 2016 06:25
[2016-10-25 06:58] VITALS: BP 112/78; PULSE 76; RESP 16
== END 2016-10-25 06:59 | disposition home or self-care (01) ==
LOC: E/R 04:47
DX: R16.0 Hepatomegaly, not elsewhere classified (principal); R42 Dizziness and giddiness; C22.9 Malignant neoplasm of liver, not specified as primary or secondary; R40.2142 Coma scale, eyes open, spontaneous, at arrival to emergency department; R40.2252 Coma scale, best verbal response, oriented, at arrival to emergency department; R40.2362 Coma scale, best motor response, obeys commands, at arrival to emergency department
CPT/HCPCS: 70450; 80053; 81003; 83690; 85025; 85610; J1170; J2405; J2765; J7040; Z7610; 36415; 96374; 96375

== ENCOUNTER 2016-12-25 22:56 | Emergency (ER) | payer BC, MEDICAID ==
[~2016-12-25] VITALS: Ht 175.3 cm; Wt 100.5 kg
[~2016-12-25 22:56] MED LIST changes: +ACET-141 PO; -DOCU-216 PO; +ONDA4TAB8 PO; +OXYC-279 PO; -PANT40TA3 PO
[2016-12-25 23:00] VITALS: Ht 175.3 cm; Wt 100.5 kg
[2016-12-26] MEDS ORDERED: HYDROmorphONE 1 MG/ML SYG IV STA (01:19)
[2016-12-26] MEDS ORDERED: ONDANSETRON 4 MG INJ IV STA (01:19)
[2016-12-26] MEDS ORDERED: SOD CHLORIDE 0.9% 500 ML IV STA (01:19)
[2016-12-26 01:42] LABS: URINE BLOOD (Dip) POC 3+ (NEGATIVE)
[2016-12-26 02:07] LABS: ADD SCAN DIFF NO
[2016-12-26 02:09] LABS: BASOPHIL # 0.1 10^3/ul (0.0-0.1); BASOPHILS % 0.9 % (0.0-2.0); EOSINOPHILS # 0.4 10^3/ul (0.0-0.5); EOSINOPHILS % 4.3 % (0.0-7.0); HEMATOCRIT 41.1 % (42.0-52.0); LYMPHOCYTES # 3.3 10^3/ul (0.8-2.9); LYMPHOCYTES % 36.5 % (15.0-51.0); MEAN CORPUSCULAR HEMOGLOBIN 30.8 pg (29.0-33.0); MEAN CORPUSCULAR HGB CONC 34.1 g/dl (32.0-37.0); MEAN CORPUSCULAR VOLUME 90.5 fl (82.0-101.0); MEAN PLATELET VOLUME 9.5 fl (7.4-10.4); MONOCYTE # 0.9 10^3/ul (0.3-0.9); MONOCYTES % 9.9 % (0.0-11.0); NEUTROPHIL # 4.4 10^3/ul (1.6-7.5); NEUTROPHILS % 47.5 % (39.0-77.0); PLATELET COUNT 235 10^3/UL (140-415); RED BLOOD COUNT 4.54 10^6/ul (4.70-6.10); RED CELL DISTRIBUTION WIDTH 13.2 % (11.5-14.5); WHITE BLOOD COUNT 9.2 10^3/ul (4.8-10.8)
[2016-12-26 02:19] LABS: ADD UMIC NO; UR ASCORBIC ACID NEGATIVE (NEGATIVE); UR BILIRUBIN (Dip) NEGATIVE (NEGATIVE); UR BLOOD (Dip) NEGATIVE (NEGATIVE); UR CLARITY CLEAR (CLEAR); UR COLOR YELLOW (YELLOW); UR GLUCOSE (Dip) NEGATIVE (NEGATIVE); UR KETONES (Dip) NEGATIVE (NEGATIVE); UR LEUKOCYTE ESTERASE (Dip) NEGATIVE Leu/ul (NEGATIVE); UR NITRITE (Dip) NEGATIVE (NEGATIVE); UR SPECIFIC GRAVITY (Dip) 1.026 (1.003-1.030); UR TOTAL PROTEIN (Dip) NEGATIVE (NEGATIVE); UR UROBILINOGEN (Dip) NEGATIVE (NEGATIVE)
[2016-12-26 02:29] LABS: ALANINE AMINOTRANSFERASE 56 IU/L (13-69); ALBUMIN 4.2 g/dl (3.3-4.9); ALBUMIN/GLOBULIN RATIO 1.16; ALKALINE PHOSPHATASE 75 IU/L (42-121); ANION GAP 20 (8-16); ASPARTATE AMINO TRANSFERASE 38 IU/L (15-46); BILIRUBIN,INDIRECT 0.5 mg/dl (0-1.1); BILIRUBIN,TOTAL 0.5 mg/dl (0.2-1.3); BLOOD UREA NITROGEN 17 mg/dl (7-20); CALCIUM 9.4 mg/dl (8.4-10.2); CARBON DIOXIDE 27 mmol/L (21-31); CHLORIDE 101 mmol/L (97-110); CREATININE 1.16 mg/dl (0.61-1.24); GLUCOSE 112 mg/dl (70-220); POTASSIUM 4.1 mmol/L (3.5-5.1); SODIUM 144 mmol/L (135-144); TOTAL PROTEIN 7.8 g/dl (6.1-8.1)
--- NOTE | 2016-12-26 02:35 | RADRPT ---
PROCEDURE: XR Chest. CLINICAL INDICATION: Pain. TECHNIQUE: Single frontal chest x-ray. COMPARISON: 09/10/2016 FINDINGS: The cardiomediastinal silhouette is unremarkable. There is no congestive heart failure.. No focal i nfiltrate is seen. There is no pleural effusion. There is no pneumothorax. The osseous structures are unremarkable. IMPRESSION: No acute abnormality. RPTAT: HMVK .Aaron Miller MD, MD Date Time Electronically viewed and signed by .Aaron Miller MD, MD on 12/26/2016 02:35 .K/
--- NOTE | 2016-12-26 02:44 | ERD ---
ER Documentation Chief Complaint Date/Time DATE: 12/26/16 TIME: 02:43 Chief Complaint upper abd pain since last night w/ vomiting, hx- liver CA taking oral chemo HPI This is a 51 year male with upper abdominal pain is less and vomiting. Patient has history of liver cancer taking oral chemotherapy. Patient has these breakthrough vomiting episodes from time to time. No fevers no chills. No other current complaints. ROS All systems reviewed and are negative except as per history of present illness. Medications Home Meds Active Scripts Ondansetron Hcl* (Zofran*) 4 Mg Tablet, 4 MG PO TID for NAUSEA, #30 TAB Prov:RODGER BACON MD 10/25/16 Oxycodone HCl/Acetaminophen (Percocet 5-325 mg Tablet) 1 Each Tablet, 1 EACH PO TID for PAIN, #30 TAB Prov:RODGER BACON MD 10/25/16 Reported Medications Acetaminophen* (Acetaminophen*) 500 MG Extra Strength Tablet, 500 MG PO Q4H Y for PAIN AND OR ELEVATED TEMP, TAB 10/25/16 Capecitabine* (Xeloda*) 500 Mg Tablet, 2000 MG PO BID, TAB 07/24/16 Allergies Allergies: Coded Allergies: ibuprofen (Unverified Allergy, Mild, CHEMO PT, BLEEDING RISK, 10/25/16) PMhx/Soc History of Surgery: Yes (appendectomy, [place] ) Anesthesia Reaction: No Hx Neurological Disorder: No Hx Respiratory Disorders: No Hx Cardiac Disorders: No Hx Psychiatric Problems: No Hx Miscellaneous Medical Probl: Yes (LIVER CA STAGE 5, CROHN'S DZ, oral chemo x 1 yr) Hx Alcohol Use: No Hx Substance Use: No Hx Tobacco Use: No Smoking Status: Unknown if ever smoked Physical Exam Vitals Vital Signs Date Time Temp Pulse Resp B/P Pulse Ox O2 Delivery O2 Flow Rate FiO2 12/25/16 23:00 98.3 77 20 122/69 96 Physical Exam Const: [] Head: Atraumatic Eyes: Normal Conjunctiva ENT: Normal External Ears, Nose and Mouth. Neck: Full range of motion..~ No meningismus. Resp: Clear to auscultation bilaterally Cardio: Regular rate and rhythm, no murmurs Abd: Soft, non tender, non distended. Normal bowel sounds Skin: No petechiae or rashes Back: No midline or flank tenderness Ext: No cyanosis, or edema Neur: Awake and alert Psych: Normal Mood and Affect Result Diagram: 12/26/16 0120 12/26/16 0120 Results 24 hrs Laboratory Tests Test 12/26/16 01:10 12/26/16 01:20 12/26/16 01:46 Urine Color YELLOW Urine Clarity CLEAR Urine pH 5.0 Urine Specific [place] 1.026 Urine Ketones NEGATIVEmg/dL Urine Nitrite NEGATIVEmg/dL Urine Bilirubin NEGATIVEmg/dL Urine Urobilinogen NEGATIVEmg/dL Urine Leukocyte Esterase NEGATIVELeu/ul Urine Hemoglobin NEGATIVEmg/dL Urine Glucose NEGATIVEmg/dL Urine Total Protein NEGATIVEmg/dl White Blood Count 9.210^3/ul Red Blood Count 4.5410^6/ul Hemoglobin 14.0g/dl Hematocrit 41.1% Mean Corpuscular Volume 90.5fl Mean Corpuscular Hemoglobin 30.8pg Mean Corpuscular Hemoglobin Concent 34.1g/dl Red Cell Distribution Width 13.2% Platelet Count 84978^3/UL Mean Platelet Volume 9.5fl Neutrophils % 47.5% Lymphocytes % 36.5% Monocytes % 9.9% Eosinophils % 4.3% Basophils % 0.9% Nucleated Red Blood Cells % 0.0/100WBC Neutrophils # 4.410^3/ul Lymphocytes # 3.310^3/ul Monocytes # 0.910^3/ul Eosinophils # 0.410^3/ul Basophils # 0.110^3/ul Nucleated Red Blood Cells # 0.010^3/ul Sodium Level 144mmol/L Potassium Level 4.1mmol/L Chloride Level 101mmol/L Carbon Dioxide Level 27mmol/L Anion Gap 20 Blood Urea Nitrogen 17mg/dl Creatinine 1.16mg/dl Glucose Level 112mg/dl Lactic Acid Level 1.2mmol/L Calcium Level 9.4mg/dl Total Bilirubin 0.5mg/dl Direct Bilirubin 0.00mg/dl Indirect Bilirubin 0.5mg/dl Aspartate Amino Transf (AST/SGOT) 38IU/L Alanine Aminotransferase (ALT/SGPT) 56IU/L Alkaline Phosphatase 75IU/L Troponin I Pending Total Protein 7.8g/dl Albumin 4.2g/dl Globulin 3.60g/dl Albumin/Globulin Ratio 1.16 Lipase 143U/L Bedside Urine pH (LAB) 5.5 Bedside Urine Protein (LAB) Negative Bedside Urine Glucose (UA) Negative Bedside Urine Ketones (LAB) Trace Bedside Urine Blood 3+ Bedside Urine Nitrite (LAB) Negative Bedside Urine Leukocyte Esterase (L Negative Current Medications Medications (Trade) Dose Ordered Sig/Beny Route PRN Reason Start Time Stop Time Status Last Admin Dose Admin Sodium Chloride (NS) 500 ml @ 500 mls/hr Q1H STAT IV 12/26/16 01:19 12/26/16 02:18 DC 12/26/16 01:27 Hydromorphone HCl (Dilaudid) 1 mg ONCE STAT IV 12/26/16 01:19 12/26/16 01:20 DC 12/26/16 01:27 Ondansetron HCl (Zofran Inj) 4 mg ONCE STAT IV 12/26/16 01:19 12/26/16 01:20 DC 12/26/16 01:27 Procedures/MDM EKG: Rate/Rhythm: [Normal Sinus Rhythm] QRS, ST, T-waves: [No changes consistent w/ acute ischemia] Impression: [No evidence of ischemia or arrhythmia] Chest X-ray 1V Interpreted by me: Soft Tissue: No acute abnormalities Bones: No acute abnormalities Mediastinum/Cardiac Silhouette/Lungs: [No acute abnormalities] Medical decision-m[age]-year-old male with here with vomiting this is resolved. No abdominal pain. Well-appearing. Patient discharged home. Told to return here in 8 hours for serial abdominal examinations Departure Diagnosis: Primary Impression: Abdominal pain Abdominal location: unspecified location Qualified Code: R10.9 - Abdominal pain, unspecified location Condition: Stable MIKE GASTON Dec 26, 2016 02:44
[2016-12-26] MEDS ORDERED: HYDR2TAB3 PO (02:45)
[2016-12-26 03:11] VITALS: BP 128/73; PULSE 68; RESP 20; TEMP 98.3
[2016-12-26 03:24] LABS: TROPONIN-I < 0.012 ng/ml (0.00-0.12)
== END 2016-12-26 03:12 | disposition home or self-care (01) ==
LOC: E/R 22:56
DX: R10.10 Upper abdominal pain, unspecified (principal); R11.10 Vomiting, unspecified; R07.9 Chest pain, unspecified; Z85.05 Personal history of malignant neoplasm of liver
CPT/HCPCS: 36415; 71010; 80053; 81003; 83605; 83690; 84484; 85025; 93005; 96374; 96375; J7040; Z7502

== ENCOUNTER 2017-06-13 23:38 | Emergency (ER) | END 2017-06-14 03:13 | disposition home or self-care (01) ==

== ENCOUNTER 2017-11-15 03:09 | Inpatient (IN) | END 2017-11-15 17:30 | disposition left against medical advice (07) | DRG 312 ==